=== PATIENT | female | born 1980 | race Caucasian/White ===

== ENCOUNTER 2017-02-13 07:50 | Day surgery (SDC) | payer OTHER ==
[~2017-02-13] VITALS: Ht 152.4 cm; Wt 59.0 kg
[~2017-02-13 07:50] MED LIST: LANTUS100 UNITS/ SUB-Q; NAPROSYN500 MG PO; NOVOLOG FL100 UNIT/1 SUB-Q
--- NOTE | 2017-02-13 11:57 | NUR ---
02/13/17 1157 Lucero Moura REPORT FROM DUST OPERATOR. ACCUCHECK 258 MG D/L-SEE ORDER FROM MD. D5LR CHANGED TO LR AT 125/H. WILL RECHECK BLOOD SUGAR IN 1 HOUR. PT AWAKE,ASKING QUESTIONS RE BLOOD SUGAR.
--- NOTE | 2017-02-13 13:27 | NUR ---
C/O PAIN AND NOT TAKING PO YET SO MORPHINE IV GIVEN FOR 5/10 PAIN.
[2017-02-13] MEDS ORDERED: PERCOCET 5-3251 EACH PO (13:37)
[2017-02-13] MEDS ORDERED: ZOFRAN ODT8 MG PO (13:38)
[2017-02-13] MEDS ORDERED: IBUPROFEN800 MG PO (13:38)
--- NOTE | 2017-02-13 15:03 | NUR ---
pt ates crackers wanted pain pill. began to retch so phenergan given diluted iv. pt hob down. pale and diaphoretic, c/o pain under r rib area also. blood glucose req by pt 179. states ok. now feeling cold so warmer on. 1505 states nausea better.
--- NOTE | 2017-02-13 15:34 | NUR ---
AMB TO BR NOT SO DIZZY, NAUSEA RESOLVED. DID WELL. STILL C/O L RIB PAIN. RET TO BED. VOIDED 125ML.
--- NOTE | 2017-02-13 15:56 | NUR ---
HAS HAD SOME CHICKEN NOODLE SOUP WANTS PAIN PILL AND GIVEN.
--- NOTE | 2017-02-13 17:10 | NUR ---
dr vazquez in to see pt.
--- NOTE | 2017-02-13 17:32 | NUR ---
PT READY TO GO HOME.
--- NOTE | 2017-02-13 17:34 | NUR ---
TOO EARLY FOR MOTRIN TORADOL GIVEN IN OR AT 1115.
--- NOTE | 2017-02-27 10:07 | OR ---
[facility] [address], [place] [address] Signed DATE OF PROCEDURE: 02/13/17 SURGEON: More Van M.D. CYTOPATHOLOGIST: Dr. Rizo. PREOPERATIVE DIAGNOSES: Dysmenorrhea, menorrhagia, prior tubal ligation. POSTOPERATIVE DIAGNOSES Dysmenorrhea, menorrhagia, prior tubal ligation with right ovarian cyst. PROCEDURE: Laparoscopy with right salpingo-oophorectomy. ANESTHESIA: General ET. DRAINS: Cazares catheter. INDICATIONS AND FINDINGS The patient is a 37-year-old female, 3, para 1, ectopic 1, VIP 1, who was admitted for evaluation of her increasing dysmenorrhea and menorrhagia. The patient has had a prior tubal ligation. She has been having worsening of her pain and bleeding, but has not really been interested in using any medical treatment. Laparoscopy was being done to evaluate for other causes of her pain. She has had a normal ultrasound, which was done approximate l y 3 weeks ago. Her periods are, otherwise, regular. At the time of surgery, laparoscopy, there was a large right adnexal mass measuring approximately 5 cm. It did appear to be blood-filled. There was no evidence of other endometriosis within the pelvis. The tubes had evidence of prior tubal ligation. PROCEDURE The patient was prepped and draped in the dorsal lithotomy position. A weighted speculum was placed and the cervix was visualized and grasped on the anterior lip with a single-tooth tenaculum. A Hulka clamp was then placed and the tenaculum and weighted speculum removed. Attention was directed to the abdomen. The infraumbilical area was injected with 0.5% Marcaine plain. The incision was made with a knife and each layer was then serially elevated and incised with the Metzenbaum scissors until the fascia could be opened and identified. Stay sutures of 0 Vicryl were placed. The peritoneum was opened sharply. The Rimma cannula was then placed and tied into place. A secondary port was placed just below the level of the umbilicus laterally. This area was transilluminated, injected with Marcaine, incision made with a knife, and the 5 mm port was placed under direct vision. Following this, the pelvis was evaluated and the mass noted. It was felt that this was probably related to her recent increase in her pain, though no other endometriosis could be seen. The decision was made to remove the right Electronically Signed By: MORE VAN MD 02/27/17 1007 PATIENT NAME: SOFIYA FERRELL OPERATIVE REPORT DATE OF : 84 PHYSICIAN: MORE VAN MD REPORT #: [id number] REPORT IS CONFIDENTIAL AND NOT TO BE RELEASED WITHOUT AUTHORIZATION [facility] [address], [place] [address] Signed tube and ovary. A third port was made in the same area on the patient's right side. This layer was transilluminated and injected with the Marcaine. Incision made with a knife and another 5 mm port placed under direct vision. Following this, the [place] LigaSure device was used to coagulate the right infundibulopelvic ligament multiple times and then dividing this. The specimen was allowed to fall into the pelvis for retrieval later. An Endoloop of 0 PDS was then placed over the infundibulopelvic ligament to assure hemostasis. Following this, a bag was introduced and the specimen placed into the bag, which was brought up through the center port. As it approached the skin, fluid was drained from the cyst and ovary and the cystic material was all sent to pathology. There was no leakage from the bag at all. It primarily appeared to be a hemorrhagic cyst. Following this, Rimma was replaced and the pelvis evaluated. It was irrigated and inspected and good hemostasis was noted. There was no evidence of any abnormal areas otherwise and preparation was made for closure. The instruments removed from the abdomen after allowing as much CO2 as possible to escape. The fascial incision of the umbilicus was reidentified and closed with a running suture of 0 Vicryl. The stay sutures were tied across as well. The skin incisions were closed with subcuticular sutures of 3-0 Vicryl Rapide. Following this, the vaginal inserts removed. There was no evidence of bleeding from the tenaculum sites. The patient was then taken to the recovery room. MD ANAI Hurley/Modl /[id number] cc: DENISSE Oconnor DO Electronically Signed By: MORE VAN MD 02/27/17 1007 PATIENT NAME: SOFIYA FERRELL OPERATIVE REPORT DATE OF : 84 PHYSICIAN: MORE VAN MD REPORT #: [id number] REPORT IS CONFIDENTIAL AND NOT TO BE RELEASED WITHOUT AUTHORIZATION
== END 2017-02-13 17:25 | disposition home or self-care (01) ==
LOC: DS 07:50
PROVIDERS: Obstetrics & Gynecology
PROC: 0UB04ZZ Excision of Right Ovary, Percutaneous Endoscopic Approach (ICD-10-PCS; principal; 2017-02-13 09:45)
PROC: 0UB54ZZ Excision of Right Fallopian Tube, Percutaneous Endoscopic Approach (ICD-10-PCS; 2017-02-13 09:45)
DX: N83.11 Corpus luteum cyst of right ovary (principal); N83.01 Follicular cyst of right ovary; Z98.51 Tubal ligation status; E10.9 Type 1 diabetes mellitus without complications; Z98.890 Other specified postprocedural states; Z79.899 Other long term (current) drug therapy
CPT/HCPCS: 00840; J1100; J1170; J1885; J2250; J2270; J2405; J2550; J2704; J2765; J3010; J7120

== ENCOUNTER 2017-03-26 19:02 | Emergency (ER) | payer OTHER ==
[~2017-03-26] VITALS: Ht 152.4 cm; Wt 59.0 kg
[~2017-03-26 19:02] MED LIST changes: +IBUPROFEN800 MG PO; +PERCOCET 5-3251 EACH PO; +ZOFRAN ODT8 MG PO
[2017-03-26] MEDS ORDERED: FOLIC ACID1 MG PO (19:33)
[2017-03-26] MEDS ORDERED: METHOTREXATE2.5 MG PO (19:33)
== END 2017-03-26 23:18 | disposition home or self-care (01) ==
LOC: ED 19:02
DX: R10.30 Lower abdominal pain, unspecified (principal); E10.9 Type 1 diabetes mellitus without complications; Z98.51 Tubal ligation status; Z79.4 Long term (current) use of insulin; Z79.899 Other long term (current) drug therapy
CPT/HCPCS: 36415; 76830; 76856; 81001; 84703; 85025; 96372; 99284; J1885

== ENCOUNTER 2017-04-03 05:35 | Day surgery (SDC) | payer OTHER ==
[~2017-04-03] VITALS: Ht 152.4 cm; Wt 59.0 kg
[~2017-04-03 05:35] MED LIST changes: +FOLIC ACID1 MG PO; +METHOTREXATE2.5 MG PO
--- NOTE | 2017-04-03 09:22 | NUR ---
04/03/17 0922 Emily Agustin 0915-PATIENT ARRIVED TO PACU ON 6L MASK O2 SAT 100% PATIENT NONAROUSABLE. 3 LAP SITES TO ABDOMEN RLQ SHADOWING. FRASER CATHETER IN PLACE. 0920-PATIENT REACTIVE TO VOICE, DROWSY
[2017-04-03] MEDS ORDERED: PERCOCET 5-3251 EACH PO (10:36)
[2017-04-03] MEDS ORDERED: IBUPROFEN800 MG PO (10:36)
[2017-04-03] MEDS ORDERED: ZOFRAN ODT4 MG PO (10:37)
[2017-04-03] MEDS ORDERED: SENOKOT8.6 MG PO (10:38)
--- NOTE | 2017-04-03 12:46 | NUR ---
1230 ASSIST PT UP TO BEDSIDE C/O VERY DIZZY HAD TO LYE BACK DOWN REQ TO NOT HAVE CATHETER REMOVED YET. CONTS TO DRAIN YELLOW URINE. VS STABLE. ALLOW TO REST LONGER.
--- NOTE | 2017-04-03 14:26 | NUR ---
up at bedside feels alittle dizzy but not as much as before. ret to bed and catheter dcd at 1400. 300mls yellow urine. denies nausea rates pain 7/10 want to take pain pills this time. eating crackers.
--- NOTE | 2017-04-03 17:13 | NUR ---
VOIDED 500MLS URINE AT 1630.
--- NOTE | 2017-04-24 08:09 | OR ---
[facility] [address], [place] [address] Signed DATE OF OPERATION: 04/03/2017 SURGEON: More Van MD DREDGE CAPTAIN: Jacob Gomes MD PREOPERATIVE DIAGNOSES: 1. Menorrhagia. 2. Dysmenorrhea. 3. Pelvic pain. POSTOPERATIVE DIAGNOSES: 1. Menorrhagia. 2. Dysmenorrhea. 3. Pelvic pain. PROCEDURES: 1. Total laparoscopic hysterectomy. 2. Left salpingectomy. 3. Cystoscopy. ANESTHESIA: General ET. ESTIMATED BLOOD LOSS: 75 mL. DRAINS: Cazares catheter. PACKS: None. INDICATIONS AND FINDINGS: The patient is a 37-year-old female, 3, para 1, ectopic 1, VIP 1, who has been having ongoing pelvic pain with worsening dysmenorrhea and menorrhagia, who desires definitive treatment. She has undergone a prior laparoscopy with removal of the right tube and ovary for a hemorrhagic cyst. No endometriosis or other pathology was found at that time. She has been placed on control pills, but has not really had any improvement in her symptoms. She has undergone prior tubal ligation. She now desires definitive treatment for her pain. At the time of surgery, exam under anesthesia was normal. At the time of laparoscopy, the pelvis appeared normal. PROCEDURE IN DETAIL: The patient was prepped and draped in the dorsal lithotomy position. A weighted speculum was placed and the anterior lip of the cervix was visualized and grasped with a single-tooth tenaculum. The endometrial canal was sounded Electronically Signed By: MORE VAN MD 04/24/17 0809 PATIENT NAME: SOFIYA FERRELL OPERATIVE REPORT DATE OF : 84 PHYSICIAN: MORE VAN MD REPORT #: [id number] REPORT IS CONFIDENTIAL AND NOT TO BE RELEASED WITHOUT AUTHORIZATION [facility] [address] [place] [address], [place] [address] Signed to 8 cm. The endocervical canal was dilated and the VCare cannula was placed and the balloon inflated at the fundus. The tenaculum and speculum were removed. The cuff was fitted over the cervix and a locking cap was fitted into place as well. Following this, attention was directed above. The infraumbilical area was injected with 0.5% Marcaine plain. An incision was made with a knife and then each layer was serially elevated and incised until the fascia was opened and identified. Stay sutures were placed on each side. The peritoneum was then opened bluntly. There was a small amount of omental adhesions towards the right side of the umbilical incision, but these were not in the way at all. The Rimma cannula was then placed and tied into place. The abdomen was inflated and the pelvis visualized. It was felt that the planned approach was appropriate. Secondary ports were placed on the right and left sides. The left side was transilluminated at the level just below the umbilicus fairly far laterally. This area was transilluminated and injected with the Marcaine. Incision made with a knife and a 5 mm port placed under direct vision. The same procedures was carried on the patient's right side, although at this point, the Veress needle was inserted with the expanding port. The 10 port was placed through the initial port. Following this, the hysterectomy was done. The Ligasure [place] device was used. The patient's left tube was serially coagulated and divided followed by the round ligament and then the uteroovarian ligament. Following this, the anterior leaf of the peritoneum could be opened and incised allowing for a partial bladder flap. The peritoneum posteriorly was also taken down. The uterine vessels were then skeletonized and coagulated multiple times at the level of the internal os. These were then divided. Further dissection was done both posteriorly and anteriorly as well. Following this, the same procedure was carried out on the patient's right side. Following this, dissection was done anteriorly allowing for the bladder to completely drop off the cervix. Dissection was done posteriorly as well. The uterine vessels were skeletonized and coagulated multiple times and then divided. Following this, attention was redirected to the patient's left side and further dissection was done around the uterine vessels, posteriorly, but it was felt at that point the cup was easily identified and the specimen could be removed. This was done with the Sonicision device. It was begun posteriorly and wrapped around the patient's left side to the anterior portion of the specimen and then taken again from posterior around the right side completing the dissection. Following this, the specimen was removed vaginally. The vaginal canal was then packed with a glove with a single wet lap tape. Attention was redirected above and the cuff was closed as the cuff appeared to be hemostatic. The EndoStitch using 0 PDS was used, closing the cuff from posterior to anterior, beginning at the patient's right uterosacral ligament, and going to the left and then back to the center. Following this, the patient's left tube was removed and brought through the right lateral port. The abdomen was copiously irrigated and inspected and good hemostasis was noted. Following this, the abdominal portion was complete and the instruments were removed from the abdomen after allowing as much CO2 as possible to escape. The fascial incision at the Electronically Signed By: MORE VAN MD 04/24/17 0809 PATIENT NAME: SOFIYA FERRELL OPERATIVE REPORT DATE OF : 84 PHYSICIAN: MORE VAN MD REPORT #: [id number] REPORT IS CONFIDENTIAL AND NOT TO BE RELEASED WITHOUT AUTHORIZATION [facility] [address] [place] [address], [place] [address] Signed umbilicus was reidentified and closed with a running suture of 0 Vicryl. The stay sutures were tied across as well. There was some dimpling near the patient's left side of the umbilical incision and this was undermined to allow for her more cosmetic scar. The skin incisions were then closed with subcuticular sutures of 3-0 Vicryl rapide. Following this, attention was directed down below and the glove filling the vagina was removed. The Cazares catheter was removed and cystoscopy was done. She had received IV fluorescein. The 30-degree scope was used and the bladder filled. There was no evidence of any bladder injury. The ureters were identified and both ureteral jets were seen, though no fluorescein was yet seen in the bladder. The procedure was terminated with removal of the cystoscope after draining the bladder. The Cazares catheter was replaced. All sponge and needle counts were correct. She tolerated the procedure well. She was taken to the recovery room in good condition. More Van MD PJW/MODL /[id number] cc: Jacob Gomes MD [facility] Electronically Signed By: MORE VAN MD 04/24/17 0809 PATIENT NAME: MARIAELENASOFIYA OPERATIVE REPORT DATE OF : 84 PHYSICIAN: MORE VAN MD REPORT #: [id number] REPORT IS CONFIDENTIAL AND NOT TO BE RELEASED WITHOUT AUTHORIZATION
== END 2017-04-03 17:00 | disposition home or self-care (01) ==
LOC: DS 05:35
PROVIDERS: Obstetrics & Gynecology
PROC: 0UT94ZZ Resection of Uterus, Percutaneous Endoscopic Approach (ICD-10-PCS; principal; 2017-04-03 06:45)
PROC: 0UB64ZZ Excision of Left Fallopian Tube, Percutaneous Endoscopic Approach (ICD-10-PCS; 2017-04-03 06:45)
DX: N80.0 Endometriosis of uterus (principal); N72 Inflammatory disease of cervix uteri; N87.9 Dysplasia of cervix uteri, unspecified; E10.9 Type 1 diabetes mellitus without complications; Z98.51 Tubal ligation status; Z98.890 Other specified postprocedural states
CPT/HCPCS: 00944; J0694; J1100; J1170; J1644; J1885; J2270; J2405; J2704; J2765; J3010

== ENCOUNTER 2017-05-27 07:00 | Day surgery (SDC) | payer OTHER ==
[~2017-05-27] VITALS: Ht 152.4 cm; Wt 59.0 kg
[~2017-05-27 07:00] MED LIST changes: +SENOKOT8.6 MG PO; +ZOFRAN ODT4 MG PO
--- NOTE | 2017-05-27 07:55 | NUR ---
PT WAS IN RM ALONE, SHE WELCOMED ME IN. I COULD TELL SHE WAS ALITTLE UNEASY, AND BEGAN TO WALK HER THROUGH TODAY WHEN GENA Zambrano CAME INTO START IV. WILL RETURN TO CHECK ON PT.
--- NOTE | 2017-05-27 10:13 | NUR ---
05/27/17 Justin3 Lucero Moura report from residential property manager.
--- NOTE | 2017-05-27 12:15 | NUR ---
PT REPORTS THAT HER NAUSEA HAS GONE AWAY AND SHE IS FEELING ABOUT THE SAME PAIN EGAN. PT IS REQUESTING SOMETHING FOR PAIN. WATER AT THE BEDSIDE. SHE DENIES A NEED TO URINATE AT THIS TIME. WILL REASSESS WITHIN THE HOUR.
--- NOTE | 2017-05-27 13:26 | NUR ---
PT WAITING FOR RN TO COME AND START IV. I COULD TELL PT WAS STRESSED, AND UNCOMFORTABLE. BEGAN TO TALK PT THROUGH THE DAY WHEN RN NOA Zambrano CAME IN. TRIED TO FOLLOW UP WITH PT-SAW HER JUST SHE WAS BEING TAKEN TO SURGERY. GOD BLESS HER
--- NOTE | 2017-05-27 13:54 | NUR ---
PT HAS MET DC CRITERIA AND WOULD LIKE TO GO HOME. DC INSTRUCTIONS TO BE GIVEN IN THE PRESENCE OF PT'S MOM.
--- NOTE | 2017-06-17 08:48 | OR ---
[facility] [address], [place] [address] Signed DATE OF OPERATION: 05/27/2017 SURGEON: Carmela Torres MD PREOPERATIVE DIAGNOSIS: Interstitial cystitis. POSTOPERATIVE DIAGNOSIS: Interstitial cystitis. NAME OF PROCEDURES: Diagnostic cystoscopy with hydrodistention. SURGEON: Carmela Torres MD. ANESTHESIA: MAC. ESTIMATED BLOOD LOSS: None. COMPLICATIONS: None. SPECIMENS: None. INDICATIONS FOR PROCEDURE: Ms. Menon is a very pleasant 37-year-old female who came to me upon referral from Dr. More Van for severe bladder pain and along with pain during urination. The patient had undergone a hysterectomy approximately 6 weeks prior to her 1st office visit. The patient denied any dysuria or gross hematuria. However, she did report severe bladder cramping that was worse with urination. She underwent a negative cystoscopy as well as a negative examination of her pelvic floor, which would otherwise have indicated pelvic floor dysfunction. Both Dr. Van and I felt that this could be easily ruled out. I mentioned to her the possibility of undergoing hydrodistention as this does help a lot of patients with interstitial cystitis and she has agreed to undergo the procedure. In the interim, she has since tried the Uribel medication without any improvement in her symptoms. Electronically Signed By: CARMELA TORRES MD 06/17/17 0848 PATIENT NAME: SOFIYA MENON OPERATIVE REPORT DATE OF : 84 PHYSICIAN: CARMELA TORRES MD REPORT #: [id number] REPORT IS CONFIDENTIAL AND NOT TO BE RELEASED WITHOUT AUTHORIZATION [facility] [address] [place], [place] [address] Signed OPERATIVE FINDINGS: 1. On cystoscopy, there was no evidence of any suspicious masses, lesions, or stones within the bladder. Bilateral ureteral orifices are in a normal anatomic location. The patient is noted to have a very good bladder capacity with normal compliance. 2. The patient's bladder was filled with a total of 1100 mL of fluid for around 7 minutes. DESCRIPTION OF PROCEDURE: After informed consent was obtained, the patient was taken back to the operative room. She was transferred from the [facility] to the operating room table, where MAC anesthesia was induced. She was placed in dorsal lithotomy position and genitalia prepped and draped in standard sterile fashion. A rigid cystoscope was inserted into her bladder and diagnostic cystoscopy was performed. The patient's bladder was then slowly filled with irrigant to approximately 1100 mL. Her bladder remained filled for 7 to 8 minutes. Towards the end of the procedure, I did begin to notice some bladder spasms producing leakage of irrigant from the patient's bladder. The patient was noted to have good compliance otherwise and filled to a total of 1100 mL. After these 7.5 minutes was complete, the patient's bladder was then drained and the cystoscope was removed. A belladonna and opioid suppository was then inserted into the patient's rectum for prevention of painful bladder spasms. The procedure was then terminated. The patient tolerated the procedure well without any complication. She will now be transferred to the postanesthesia care unit in stable condition. DISPOSITION: Sofiya would be discharged to home later today in stable condition. She was given 5 days of Bactrim for prophylaxis along with Percocet 5/325, dispense #5 as needed for pain. She will be scheduled to return to clinic in approximately 1 month for re-evaluation of her bladder cramping symptoms. MD LYNDA Isaac/MODL /[id number] Electronically Signed By: CARMELA TORRES MD 06/17/17 0848 PATIENT NAME: SOFIYA MENON OPERATIVE REPORT DATE OF : 84 PHYSICIAN: CARMELA TORRES MD REPORT #: [id number] REPORT IS CONFIDENTIAL AND NOT TO BE RELEASED WITHOUT AUTHORIZATION [address] [place] [address] Signed Electronically Signed By: CARMELA TORRES MD 06/17/17 0848 PATIENT NAME: SOFIYA MENON OPERATIVE REPORT DATE OF : 84 PHYSICIAN: CARMELA TORRES MD REPORT #: [id number] REPORT IS CONFIDENTIAL AND NOT TO BE RELEASED WITHOUT AUTHORIZATION
== END 2017-05-27 14:05 | disposition home or self-care (01) ==
LOC: DS 07:00 → OPS 07:00 → DS 10:15 → OPS 10:15
PROVIDERS: Urology
PROC: 0T7B8ZZ Dilation of Bladder, Via Natural or Artificial Opening Endoscopic (ICD-10-PCS; principal; 2017-05-27 10:15)
DX: N30.10 Interstitial cystitis (chronic) without hematuria (principal); E10.9 Type 1 diabetes mellitus without complications; L40.50 Arthropathic psoriasis, unspecified; Z90.710 Acquired absence of both cervix and uterus; Z98.51 Tubal ligation status; Z98.890 Other specified postprocedural states; Z79.899 Other long term (current) drug therapy
CPT/HCPCS: 00912; J0696; J1100; J1885; J2250; J2405; J2704; J3010; J7120

== ENCOUNTER 2017-09-16 06:49 | Day surgery (SDC) | payer OTHER ==
[~2017-09-16] VITALS: Ht 152.4 cm; Wt 57.0 kg
[~2017-09-16 06:49] MED LIST changes: +ELMIRON100 MG PO; +HUMIRA40 MG/0.1 SUB-Q
[2017-09-16] MEDS ORDERED: BACTRIM DS TAB1 EACH PO (10:21)
--- NOTE | 2017-09-16 10:50 | OR ---
[facility] [address] [place], [place] [address] Signed DATE OF OPERATION: 09/16/2017 SURGEON: Carmela Torres MD PREOPERATIVE DIAGNOSES: 1. Cystitis. 2. Possible pelvic floor dysfunction. POSTOPERATIVE DIAGNOSES: 1. Cystitis. 2. Possible pelvic floor dysfunction. PROCEDURES: Diagnostic cystoscopy with hydrodistention. ANESTHESIA: General. ESTIMATED BLOOD LOSS: Minimal. COMPLICATIONS: None. SPECIMENS: None. INDICATIONS FOR PROCEDURE: Ms. Menon is a very pleasant 37-year-old female with a past medical history significant for type 1 diabetes mellitus and rheumatoid arthritis who is well known to me. She has a history of severe suprapubic discomfort that is made particularly worse while voiding. She has no issues with dysuria or gross hematuria and does not experience exacerbation of symptoms with trigger foods. She underwent a cystoscopy with hydrodistention in May of 2017, and reports an approximately 20% improvement in her symptoms. She was recently seen in clinic and she requested repeat hydrodistention and she presents today to undergo the procedure. OPERATIVE FINDINGS: 1. On cystoscopy, there was no evidence of any suspicious masses, lesions, or stones. Bilateral ureteral orifices are in their normal anatomic location. Electronically Signed By: CARMELA TORRES MD 09/16/17 1050 PATIENT NAME: SOFIYA MENON OPERATIVE REPORT DATE OF : 84 REPORT #: [id number] PHYSICIAN: CARMELA TORRES MD PCP: YOUSIF PAYNE REPORT IS CONFIDENTIAL AND NOT TO BE RELEASED WITHOUT AUTHORIZATION [facility] [address] [place], [place] [address] Signed 2. The patient filled to a total of 1300 mL during the hydrodistention. The distention was held for approximately 7.5 minutes and the patient's bladder was drained without incident. DESCRIPTION OF PROCEDURE: After informed consent was obtained, the patient was taken back to the operating room. She was transferred [place] [facility] to the operating room table, where general anesthesia was induced. She was placed in the dorsal lithotomy position and her genitalia were prepped and draped in the standard sterile fashion. Using a 30-degree lens on a 21-[place] introducer, rigid cystoscope was inserted through the urethra and into her bladder under direct visualization. Panendoscopic views of the bladder were then obtained. Please see above findings. I then initiated the filling sequence portion of the hydrodistention. Once she was filled to max capacity, her bladder remained at this capacity for a total of 7.5 Minutes. There was no significant Hunner ulcers or any petechiae or cracking noticed on the bladder wall mucosa at the end of the distention. There were, however, some superficial vessels that were noted. However, this is a normal response to hydrodistention. The patient's bladder was then drained and we measured the drainage at 1300 mL. The cystoscope was removed and the procedure was terminated. The patient tolerated the procedure well without any complication. She will now be transferred to the postanesthesia care unit in stable condition. DISPOSITION: I discussed the details of today's procedure with her boyfriend and answered all of his questions. She will be sent home today with Bactrim double strength for a total of 5 days. She will be scheduled to return to clinic in approximately 6 weeks for re-evaluation of her symptoms. She will be discharged to home today in the company of her boyfriend. MD LYNDA Isaac/MODL /[id number] Copies: Electronically Signed By: CARMELA TORRES MD 09/16/17 1050 PATIENT NAME: SOFIYA MENON JUSTINO OPERATIVE REPORT DATE OF : 84 REPORT #: [id number] PHYSICIAN: CARMELA TORRES MD PCP: YOUSIF PAYNE REPORT IS CONFIDENTIAL AND NOT TO BE RELEASED WITHOUT AUTHORIZATION [facility] [address] [place] [address] [place], [place] [address] Signed ~ Electronically Signed By: CARMELA TORRES MD 09/16/17 1050 PATIENT NAME: SOFIYA MENON OPERATIVE REPORT DATE OF : 84 REPORT #: [id number] PHYSICIAN: CARMELA TORRES MD PCP: YOUSIF PAYNE REPORT IS CONFIDENTIAL AND NOT TO BE RELEASED WITHOUT AUTHORIZATION
== END 2017-09-16 11:00 | disposition home or self-care (01) ==
LOC: OPS 06:49 → DS 06:49 → OPS 08:00 → DS 08:00 → OPS 11:00
PROVIDERS: Urology
PROC: 0T7B8ZZ Dilation of Bladder, Via Natural or Artificial Opening Endoscopic (ICD-10-PCS; principal; 2017-09-16 08:00)
DX: N30.10 Interstitial cystitis (chronic) without hematuria (principal); E10.9 Type 1 diabetes mellitus without complications; F41.9 Anxiety disorder, unspecified; M06.9 Rheumatoid arthritis, unspecified; Z98.890 Other specified postprocedural states; Z83.3 Family history of diabetes mellitus; Z79.84 Long term (current) use of oral hypoglycemic drugs; Z79.899 Other long term (current) drug therapy
CPT/HCPCS: 00910; J0696; J1100; J2250; J2405; J2704; J3010; J7120

== ENCOUNTER 2018-07-28 05:55 | Day surgery (SDC) | payer OTHER ==
[~2018-07-28] VITALS: Ht 152.4 cm; Wt 52.2 kg
[~2018-07-28 05:55] MED LIST changes: +BACTRIM DS TAB1 EACH PO; +CIPRO500 MG PO; +COSENTYX P150 MG/1 M SUB-Q; +CYMBALTA20 MG PO; +DICLOFENAC SODI50 MG PO; +ENBREL50 MG/1 ML SUB-Q; +GABAPENTIN300 MG PO; +HYDROXYZINE HCL10 MG PO; +PYRIDIUM200 MG PO
--- NOTE | 2018-07-28 08:15 | NUR ---
07/28/18 0815 Jacqueline Michel 0809- PT ARRIVES TO PACU AROUSABLE TO VOICE. PT REPORTS NO PAIN OR NAUSEA. PT INSTANTLY BACK TO SLEEP. RESP EVEN AND UNLABORED. OXYGEN SAT 100% ON 10L VIA MASK. 0814- OXYGEN TURNED OFF. OXYGEN SAT REMAINS 100% ON RA. RESP EVEN AND UNLABORED.
--- NOTE | 2018-07-28 08:41 | NUR ---
PT ARRIVES TO DS RM 5 FROM PACU AWAKE AND ALERT. PT RESP EVEN AND UNLABORED ON RA. PT SATS ABOVE 94%. PT DENIES ANY PAIN OR NAUSEA AT THIS TIME AND TOLERATES SIPS OF WATER. PT PROVIDED CRACKERS PER REQUEST. CALL LIGHT WITHIN REACH, SCD'S PLUGGED IN. DC CRITERIA EXPLAINED TO PT, PT AGREEABLE.
[2018-07-28] MEDS ORDERED: CIPRO500 MG PO (08:55)
[2018-07-28] MEDS ORDERED: PERCOCET 5-3251 EACH PO (08:55)
[2018-07-28] MEDS ORDERED: PYRIDIUM200 MG PO (08:56)
--- NOTE | 2018-07-28 09:38 | NUR ---
PT REQUESTS TO PUT PERSONAL PAJAMA BOTTOMS ON. PT DRESSES SELF WITH NO PROBLEMS, PT DENIES ANY DIZZINESS OR NAUSEA WITH POSITION CHANGES. PT UP TO BATHROOM WITH RN ASSIST, STEADY GAIT.
--- NOTE | 2018-07-28 09:45 | NUR ---
PT ABLE TO VOID 400 DILUTE YELLOW URINE WITH NO PROBLEM. PT CALLS FAMILY FOR RIDE HOME FROM PERSONAL CELL PHONE. DC INSTRUCTIONS GIVEN TO PT, MED SCRIPT IN FOLDER.
--- NOTE | 2018-07-28 10:22 | NUR ---
PT LAYING IN BED, ALERT AND ORIENTED. PT STATED THAT SHE HAS HAD PROCEDURE BE- FORE AND THAT SHE PROBABLY WILL SOMETIME AGAIN. OUTLINED THE DAY, PT ASKED FOR PRAYER. WILL FOLLOW NEEDED
--- NOTE | 2018-07-29 18:24 | OR ---
[facility] [address] [place] [address] Signed DATE OF OPERATION: 07/28/2018 SURGEON: Carmela Torres MD PREOPERATIVE DIAGNOSIS: Interstitial cystitis. POSTOPERATIVE DIAGNOSIS: Interstitial cystitis. NAME OF PROCEDURE: Diagnostic cystoscopy with hydrodistention. ANESTHESIA: General. ESTIMATED BLOOD LOSS: None. COMPLICATIONS: None. SPECIMENS: None. DRAINS: None. INDICATIONS FOR PROCEDURE: Ms. Menon is a very pleasant 38-year-old female with a history of interstitial cystitis with atypical symptoms. She has undergone cystoscopy with hydrodistention in the past in February of 2018, and did respond to the procedure. She is currently taking hydroxyzine 10 mg p.o. at bedtime as well as Pyridium as needed for suprapubic discomfort. She continues to deny any gross hematuria or overt dysuria, however, she is experiencing frequency and urgency symptoms. She presents today to undergo a repeat cystoscopy with hydrodistention for definitive management of her IC symptoms. OPERATIVE FINDINGS: 1. On cystoscopy, there was no evidence of any suspicious masses, lesions or stones within the bladder. Bilateral ureteral orifices are in their normal anatomic location. Portions of this report were created using voice recognition software. There may be inadvertent computer error. Please read with context in mind. If there are any questions, please contact me. Electronically Signed By: CARMELA TORRES MD 07/29/18 1824 PATIENT NAME: SOFIYA MENON OPERATIVE REPORT DATE OF : 84 REPORT #: [id number] PHYSICIAN: CARMELA TORRES MD PCP: JAVIER MARTIN REPORT IS CONFIDENTIAL AND NOT TO BE RELEASED WITHOUT AUTHORIZATION [facility] [address] [place], [place] [address] Signed 2. There is some diffuse superficial vascularity of the bladder wall mucosa, however, no evidence of any ulceration or mucosal cracking during distention. There are no active Hunner's ulcers seen. 3. The patient's bladder was filled with a maximum capacity of approximately 1500 mL during this distention, for a total of 7.5 minutes. DESCRIPTION OF PROCEDURE: After informed consent was obtained, the patient was taken back to the operating room. She was transferred from the [facility] to the operating room table, where general seizure was induced. She was placed in the dorsal lithotomy position and the genitalia were prepped and draped in standard sterile fashion. Using a 30-degree lens on a 21-Sinhala introducer rigid cystoscope was inserted through her urethra and into her bladder under direct visualization. Panendoscopic views of the bladder were then obtained. Please see the findings. Prior to the insertion of the cystoscope, a belladonna and opioid suppository were inserted per rectum. After cystoscopy was performed, the patient's bladder was completely drained. It was then filled at a medium rate and was filled to capacity for approximately 7 minutes. Please see the above findings. Toward the end of the distention period, the patient's bladder began to exhibit contractions and was forcing irrigation from the bladder back out during the active distention process. After approximately 7.5 minutes, the patient's bladder was then drained of 1500 mL of fluid. The procedure was then terminated. The patient tolerated the procedure well without any complication. She will now be transferred to the postanesthesia care unit in stable condition. Prior to transfer, the patient was given an additional belladonna and opioid suppository. DISPOSITION: I discussed the details of today's procedure with the patient, answered all of her questions. She will be scheduled to return to clinic in 6 weeks for her first postoperative evaluation. She will be sent home today with Percocet 5/325 one tablet p.o. q.8 hours p.r.n. pain, dispense #20, along with Cipro 500 mg p.o. b.i.d. for a total of 5 days. She was also given a refill of her Pyridium prescription. MD LYNDA Isaac/FAVIAN /[id number] Portions of this report were created using voice recognition software. There may be inadvertent computer error. Please read with context in mind. If there are any questions, please contact me. Electronically Signed By: CARMELA TORRES MD 07/29/18 1824 PATIENT NAME: SOFIYA MENON OPERATIVE REPORT DATE OF : 84 REPORT #: [id number] PHYSICIAN: CARMELA TORRES MD PCP: JAVIER MARTIN REPORT IS CONFIDENTIAL AND NOT TO BE RELEASED WITHOUT AUTHORIZATION [address] [address] Signed Copies: ~ Portions of this report were created using voice recognition software. There may be inadvertent computer error. Please read with context in mind. If there are any questions, please contact me. Electronically Signed By: CARMELA TORRES MD 07/29/18 1824 PATIENT NAME: SOFIYA MENON OPERATIVE REPORT DATE OF : 84 REPORT #: [id number] PHYSICIAN: CARMELA TORRES MD PCP: JAVIER MARTIN REPORT IS CONFIDENTIAL AND NOT TO BE RELEASED WITHOUT AUTHORIZATION
== END 2018-07-28 09:55 | disposition home or self-care (01) ==
LOC: OPS 05:55 → DS 05:55 → OPS 06:45
PROVIDERS: Urology
PROC: 0T7B8ZZ Dilation of Bladder, Via Natural or Artificial Opening Endoscopic (ICD-10-PCS; principal; 2018-07-28 06:45)
DX: N30.10 Interstitial cystitis (chronic) without hematuria (principal); E10.9 Type 1 diabetes mellitus without complications; M19.041 Primary osteoarthritis, right hand; Z79.899 Other long term (current) drug therapy; Z98.890 Other specified postprocedural states
CPT/HCPCS: 00910; J0696; J1100; J1885; J2250; J2405; J2704; J2765; J3010; J7120

== ENCOUNTER 2019-12-07 05:53 | Day surgery (SDC) | payer OTHER ==
[~2019-12-07] VITALS: Ht 152.4 cm; Wt 59.0 kg
[~2019-12-07 05:53] MED LIST changes: +CLINDAMYCIN HC300 MG PO; +HYDROCODON-ACE1 EA10 PO; +HYDROCODON-ACE1 EA11 PO; +MOTRIN IB200 MG PO; +ZOFRAN8 MG PO
--- NOTE | 2019-12-07 08:16 | NUR ---
12/07/19 0816 Kate Barnes 0810- PT TO PACU IN SUPINE POSITION. EYES CLOSED. DOES NOT RESPOND TO TACTILE OR VERBAL STIMULI. BREATHING EASY AND UNLABORED. SPO2 >95% ON 6 L O2 VIA MASK. 0815- PT MAKING UNDISCERNABLE WORDS WITH EYES CLOSED TO VERBAL STIMULI. BREATHING EASY AND UNLABORED. SPO2 >95% ON 6L O2 VIA MASK. REPORT RECEIVED FROM KEG INSPECTOR.
--- NOTE | 2019-12-07 08:50 | NUR ---
[id number]: MARCY KNOWLES PLACED ON WARM [id number]: SIG OTHER, JOLEEN IN PT ROOM AT THIS TIME. [id number]: ICED WATER REFILLED, PT CONT TO DENY PAIN IN SURGICAL SITE. STATES BACK STILL HURTS. PT ENC TO USE CALL LIGHT WITH URGE TO VOID. 0940: PT USES CALL LIGHT TO NOTIFY RN OF URGE TO VOID. PT UP TO BATHROOM WITH RN ASSIST AND SIG OTHER, JOLEEN. PT AMBULATES WITH STEADY GAIT, HUNCHED OVER DUE TO CHRONIC BACK PAIN. PT ABLE TO VOID 700 MLS LIGHT YELLOW URINE WITH NO BLOOD PRESENT WITH NO PROBLEMS OR PAIN. PT BACK TO RM 5 TO GET DRESSED WITH SIG OTHER AT BEDSIDE.
--- NOTE | 2019-12-07 08:50 | NUR ---
PT ARRIVES TO DS RM 5 FROM PACU AWAKE AND ALERT. PT DENIES PAIN OR NAUSEA ON ARRIVAL, PT TOLERATES SIPS OF WATER WITH NO PROBLEM. DC CRITERIA EXPLAINED TO PT. PT PROVIDED PHONE PER REQUEST AND CALL LIGHT WITHIN REACH.
[2019-12-07] MEDS ORDERED: CIPRO500 MG PO (09:09)
[2019-12-07] MEDS ORDERED: PERCOCET 7.5-31 EACH PO (09:09)
[2019-12-07] MEDS ORDERED: PYRIDIUM200 MG PO (09:10)
--- NOTE | 2019-12-07 10:08 | NUR ---
0950: DC INSTRUCTIONS GIVEN IN PRESENCE OF PT AND SIG OTHER, NO QUESTIONS ASKED. PT PROVIDED HARD COPY OF PAIN PRESCRIPTION IN DC FOLDER. PT DC'S VIA WC TO PERSONAL VEHICLE AT MAIN HOSPTIAL ENTRANCE TO HOME.
--- NOTE | 2019-12-08 17:23 | OR ---
[facility] [address] [facility] [place], [place] [address] Signed DATE OF OPERATION: 12/07/2019 SURGEON: Carmela Torres MD DATE OF PROCEDURE: 12/07/2019 PREOPERATIVE DIAGNOSIS: Interstitial cystitis. POSTOPERATIVE DIAGNOSIS: Interstitial cystitis. NAME OF PROCEDURES: Diagnostic cystoscopy with hydrodistention. ANESTHESIA: General LMA. COMPLICATIONS: None. SPECIMENS: None. DRAINS: None. INDICATIONS FOR PROCEDURE: Ms. Menon is a very pleasant 39-year-old female who is well known to me. She was diagnosed by me with interstitial cystitis approximately two years ago and has been undergoing routine cystoscopy with hydrodistention for management of her moderate to severe interstitial cystitis for almost two years now. She presents today to undergo another routine hydrodistention. OPERATIVE FINDINGS: 1. On cystoscopy, there was no evidence of any suspicious masses, lesions, or stones. Bilateral ureteral orifices are in their normal anatomic location effluxing clear urine. 2. The patient's bladder was slowly filled with water, for a total volume of 1250 mL, suggesting adequate bladder compliance. Upon full distention, there was no evidence of Electronically Signed By: CARMELA TORRES MD 12/08/19 1723 PATIENT NAME: SOFIYA MENON OPERATIVE REPORT DATE OF : 84 REPORT #: [id number] PHYSICIAN: CARMELA TORRES MD PCP: JAVIER MARTIN REPORT IS CONFIDENTIAL AND NOT TO BE RELEASED WITHOUT AUTHORIZATION [facility] [address] [place], [place] [address] Signed any Hunner's ulcers noted, however, there was diffuse vascularity present throughout the bladder wall. Upon release of the fluid, there was no evidence of any acute hemorrhage. As stated above, the patient's bladder capacity was approximately 1250 mL. DESCRIPTION OF PROCEDURE: After informed consent was obtained, the patient was taken back to the operating room. She was transferred from the [facility] to the operating room table, where general anesthesia was induced. She was placed in the dorsal lithotomy position and her genitalia were prepped and draped in standard sterile fashion. Using a 30-degree lens on a 22.5 Welsh introducer, rigid cystoscope was inserted through the urethra into her bladder under direct visualization. Panendoscopic views of bladder were then obtained. Please see above findings. I then emptied the patient's bladder completely and then began to fill the patient's bladder slowly. I flow slowly distended the patient's bladder with a total of 1250 mL. I did appreciate diffuse vascularity as the patient's bladder filled, however no evidence of any acute hemorrhage or active hemorrhage from the bladder wall. At around full capacity, the patient's bladder did begin to leak just a little bit towards the end of the distention. The patient's bladder was distended for a total of 8.5 minutes. The patient's bladder was then drained for 1250 mL of fluid volume. I repeated cystoscopy to be sure there was no active hemorrhage, and this was negative. The patient's bladder was then again drained and the cystoscope was removed. The procedure was then terminated. The patient tolerated the procedure well without any complication. She will now be transferred to the postanesthesia care unit in stable condition. DISPOSITION: I notified the patient's significant other, German, of the results of the procedure. I reassured him that everything went well as per routine. She will be discharged to home later today when she awakes from general anesthesia. She was given prescriptions for Cipro 500 mg p.o. b.i.d. for a total of 5 days, along with Percocet 7.5/325 dispense #30 as needed for pain. She was also given a prescription for Pyridium 200 mg p.o. t.i.d. p.r.n. dysuria. She has been placed back on the schedule for postoperative visit on January 18, 2020. MD LYNDA Isaac/FAVIAN /[id number] Electronically Signed By: CARMELA TORRES MD 12/08/19 1723 PATIENT NAME: SOFIYA MENON OPERATIVE REPORT DATE OF : 84 REPORT #: [id number] PHYSICIAN: CARMELA TORRES MD PCP: JAVIER MARTIN REPORT IS CONFIDENTIAL AND NOT TO BE RELEASED WITHOUT AUTHORIZATION [facility] [address] [place] [address] [place], [place] [address] Signed Copies: ~ Electronically Signed By: CARMELA TORRES MD 12/08/19 1723 PATIENT NAME: SOFIYA MENON JUSTINO OPERATIVE REPORT DATE OF : 84 REPORT #: [id number] PHYSICIAN: CARMELA TORRES MD PCP: JAVIER MARTIN REPORT IS CONFIDENTIAL AND NOT TO BE RELEASED WITHOUT AUTHORIZATION
== END 2019-12-07 10:00 | disposition home or self-care (01) ==
LOC: OPS 05:53 → DS 05:53 → OPS 06:45
PROVIDERS: Urology
PROC: 0T7B8ZZ Dilation of Bladder, Via Natural or Artificial Opening Endoscopic (ICD-10-PCS; principal; 2019-12-07 06:45)
DX: N30.10 Interstitial cystitis (chronic) without hematuria (principal); E10.9 Type 1 diabetes mellitus without complications; M19.041 Primary osteoarthritis, right hand; M19.042 Primary osteoarthritis, left hand; L40.50 Arthropathic psoriasis, unspecified; Z90.710 Acquired absence of both cervix and uterus; Z98.890 Other specified postprocedural states; Z79.899 Other long term (current) drug therapy
CPT/HCPCS: 00910; J0696; J1885; J2001; J2250; J2704; J7121

== ENCOUNTER 2019-12-09 08:45 | Emergency (ER) | payer OTHER ==
[~2019-12-09] VITALS: Ht 152.4 cm; Wt 59.0 kg
--- OUTSIDE RECORDS SUMMARY | ~2019-12-09 | XMS | Encounter Summary ---
Demographics + + + | Address | [address] | | | [place] [address] | + + + | Home Phone | | + + + | Preferred Language | Unknown | + + + | Marital Status | Unknown | + + + | Sabianism Affiliation | Unknown | + + + | Race | Unknown | + + + | Ethnic Group | Unknown | + + + Author + + + | Author | [facility] | | | and [place] | + + + | Organization | [facility] | | | and [place] | + + + | Address | Unknown | + + + | Phone | Unavailable | + + + Support + + +---------+ + | Name | Relationship | Address | Phone | + + +---------+ + | Holley James | ECON | Unknown | | + + +---------+ + | Guillermo Pearson ECON | Unknown | | + + +---------+ + Care Team Providers + +------+ + | Care Head Sugar Reprocess Operator Name | Role | Phone | + +------+ + | Danish Nichole NP | PCP | | + +------+ + Encounter Details +--------+ + + + + | Date | Type | Department | Care Team | Description | +--------+ + + + + | 01/18/ | Imaging | [facility] | Provider, | | | 2017 | Exam | [facility] | MD [address] | | | | | [address] | [address] | | | | | [address] | [place] [address] | | | | | [place] [address] | | | | | | [phone] | | | +--------+ + + + + Social History + +-------+ +--------+------+ | Tobacco Use | Types | Packs/Day | Years | Date | | | | | Used | | + +-------+ +--------+------+ | Former Smoker | | 1 | 2 | | + +-------+ +--------+------+ + + +---------+ + | Alcohol Use | Drinks/Week | oz/Week | Comments | + + +---------+ + | Yes | | | | + + +---------+ + + + + | Sex Assigned at | Date Recorded | | | | + + + | Not on file | | + + + documented as of this encounter Plan of Treatment Not on filedocumented as of this encounter Procedures + +--------+ + + + | Procedure Name | Priori | Date/Time | Associated Diagnosis | Comments | | | ty | | | | + +--------+ + + + | XR ELBOW LEFT 3 + VW | Routin | 01/16/2017 | | Results for this | | | e | 3:15 PM | | procedure are in the | | | | PDT | | results section. | + +--------+ + + + documented in this encounter Results XR Elbow Left 3 + Vw (01/16/2017 3:15 PM PDT) + + | Specimen | + + | | + + + + + | Narrative | Performed At | + + + | External films for comparison only - no result from [place]. | [facility] | + + + + +---------+ + + | Performing | Address | City/State/Zipcode | Phone Number | | Organization | | | | + +---------+ + + | [facility] | | | | + +---------+ + + documented in this encounter Visit Diagnoses Not on filedocumented in this encounter"
--- OUTSIDE RECORDS SUMMARY | ~2019-12-09 | XMS | Encounter Summary ---
Demographics + + + | Address | [address] | | | [place] [address] | + + + | Home Phone | | + + + | Preferred Language | Unknown | + + + | Marital Status | Unknown | + + + | Yarsani Affiliation | Unknown | + + + | Race | Unknown | + + + | Ethnic Group | Unknown | + + + Author + + + | Author | [facility] | | | and [place] | + + + | Organization | [facility] | | | and [place] | [...] Team Providers + +------+ + | Care Studio Coordinator Name | Role | Phone | + +------+ + | Jung Mclean MD | PCP | | + +------+ + Reason for Visit + +--------+ + | Reason | Onset | Comments | | | Date | | + +--------+ + | Medication Refill | 03/11/ | | | | 2019 | | + +--------+ + Encounter Details +--------+ + + + + | Date | Type | Department | Care Team | Description | +--------+ + + + + | 03/11/ | Telephone | [facility] | Barbara Mendoza | Medication Refill | | 2019 | | [facility] | [facility] [address] | | | | | [address] | [facility] | | | | | [facility] | [place] | | | | | [place], [place] | [address] | | | | | [address] | | | | | | [phone] | | | +--------+ + + + + Social History + +-------+ +--------+ + | Tobacco Use | Types | Packs/Day | Years | Date | | | | | Used | | + +-------+ +--------+ + | Former Smoker | | 1 | 2 | Quit: 2005 | + +-------+ +--------+ + + +---+---+---+ | Smokeless Tobacco: | | | | | Never Used | | | | + +---+---+---+ + + +---------+ + | Alcohol Use | Drinks/Week | oz/Week | Comments | + + +---------+ + | Not Currently | | | | + + +---------+ + + + + | Sex Assigned at | Date Recorded | | | | + + + | Not on file | | + + + documented as of this encounter Miscellaneous Notes Telephone Encounter - Barbara Mendoza ARNP - 03/11/2019 1:31 PM PDT----- Message nishant Singh, Electro Mechanical Technologist sent at 03/11/2019 13:09 PDT ----- Can you send in an rx for vitamin d2 to [facility] in [place] documented in this encounter Plan of Treatment Not on filedocumented as of this encounter Visit Diagnoses Not on filedocumented in this encounter"
--- OUTSIDE RECORDS SUMMARY | ~2019-12-09 | XMS | Encounter Summary ---
Demographics + + + | Address | [address] | | | [place] [address] | + + + | Home Phone | | + + + | Preferred Language | Unknown | + + + | Marital Status | Unknown | + + + | Church Affiliation | Unknown | + + + | Race | Unknown | + + + | Ethnic Group | Unknown | + + + Author + + + | Author | [facility] | | | and [place] | + + + | Organization | [facility] | | | and [place] [...] Team Providers + +------+ + | Care Seed Laboratory Assistant Name | Role | Phone | + +------+ + | Jung Mclean MD | PCP | | + +------+ + Reason for Visit +--------+ + | Reason | Comments | +--------+ + | Other | Established patient is here today due to nidhi that started | | | over a year ago when she started taking methotrexate for her | | | psoriasis. Patient stopped taking the methotrexate a year ago | | | but continues to lose ample amounts of hair every day. She | | | states that her thyroid was tested and came back within normal | | | range. Patient is currently taking biotin. Patient states she | | | has been on cosentyx for her psoriasis and has had good | | | improvement but uses hydrocortisone 2.5% for any small breakouts. | +--------+ + Evaluate & Treat (Routine) +--------+--------+ + + + + | Status | Reason | Specialty | Diagnoses / | Referred By | Referred To | | | | | Procedures | Contact | Contact | +--------+--------+ + + + + | Closed | | Dermatology | Diagnoses | [facility] | Terrell | | | | | Alopecia | Татьяна Bianchi, | Dermatology | | | | | [place], | [place] [address] [address] | [address] | | | | | unspecified | [address] | [address] | | | | | | [address] | [place], [place] | | | | | | [place], [place] | [address] | | | | | | [address] | Phone: | | | | | | Phone: | [phone] | | | | | | [phone] | Fax: | | | | | | Fax: | [phone] | | | | | | [phone] | | +--------+--------+ + + + + Encounter Details +--------+---------+ + + + | Date | Type | Department | Care Team | Description | +--------+---------+ + + + | 01/30/ | Office | [facility] | Barbara Mendoza | Alopecia (Primary | | 2019 | Visit | PLASTIC SURGERY AND | Ryan, HOME HEALTH CARE CASE MANAGER [address] | Dx); Psoriasis | | | | DER[address]OLOG[address] | [address] | vulgaris; Hirsutism; | | | | [address] | [place] | Acne vulgaris | | | | [place] | [id number] | | | | | [address] | | | | | | [phone] | | | +--------+---------+ + + + Social History + +-------+ [...] + + documented as of this encounter Last Filed Vital Signs + + + + + | Vital Sign | Reading | Time Taken | Comments | + + + + + | Blood Pressure | - | - | | + + + + + | Pulse | - | - | | + + + + + | Temperature | - | - | | + + + + + | Respiratory Rate | - | - | | + + + + + | Oxygen Saturation | - | - | | + + + + + | Inhaled Oxygen | - | - | | | Concentration | | | | + + + + + | Weight | 59 kg (130 lb) | 2019 9:04 AM | | | | | PDT | | + + + + + | Height | - | - | | + + + + + | Body Mass Index | 25.39 | 10/10/2017 1:06 PM | | | | | PDT | | + + + + + documented in this encounter Patient Instructions Patient Instructions Danny iSngh New Car Make Ready Mechanic - 2019 9:00 AM PDTFormrowena mosley of this note might be different from the original. -Discussed treating with low dose of Spironolactone and getting some labs done and possibly referring to endocrinology if numbers are very off. Polycystic Ovary Syndrome Polycystic ovary syndrome (PCOS) causes harmless, smallcysts in the ovaries and other sym ptoms. PCOS is caused by certain hormones being out of balance. The word syndrome mean s a group of symptoms. Women with PCOS may have no periods, irregular periods, or very long periods. Your ovaries Women store their eggs in their ovaries. Each egg is in a capsule called a follicle. Normal ly during the reproductive years, one follicle grows to produce a mature egg each month. Thi s egg is released during ovulation and the follicle dissolves. Hormones out of balance With polycystic ovary syndrome (PCOS), the hormones that control ovulation are out of dina ce. These include estrogen, progesterone, and androgen.As a result, ovulation may not occu r. Instead, thefollicle stays enlarged. This is a fluid-filled sac called a cyst. Over tripp e, the ovaries fill with many small cysts. This is why they are called poly or many cystic ovaries. In some women, the ovaries also make toomuch androgen. PCOS symptoms Women with PCOS may also have one or more of these symptoms: Acne Hair growth on the face and other parts of the body Patches of thickened, velvety, darkened skin called acanthosis nigricans Trouble getting (fertility problems) Weight gain, especially around the waist Women with PCOS are also at increased risk of developing cancer of the uterine lining,kaiser betes, and heart disease. Date Last Reviewed: 11/08/201619997605-1457 The [employer]. [address] [place] [id number]. All righ ts reserved. This information is not intended as a substitute for professional medical care. Always follow your healthcare professional's instructions. documented in this encounter Progress Notes Barbara Mendoza, HOME HEALTH CARE CASE MANAGER - 2019 9:00 AM PDT Subjective Patient ID: Leta Menon is a 39 y.o. female. Established patient is here today due to hairloss that started over a year ago when she sta rted taking methotrexate for her psoriasis. Patient stopped taking the methotrexate a year ago but continues to lose ample amounts of hair every day. She states that her thyroid was tested and came back within normal range. Pt has had a hysterectomy but continues to have o ne ovary. She has facial hair that grows as well. Patient is currently taking biotin. Jeanette fuller states she has been on cosentyx for her psoriasis and has had good improvement but uses hydrocortisone 2.5% for any small breakouts. The following elements of the patient's history were reviewed and updated as appropriate. T hey are available elsewhere in the patient record. allergies, current medications, past fam mario history, past medical history, past social history, past surgical history and problem li st Review of Systems Constitutional: Negative. Skin: Hair loss Objective Wt 59 kg (130 lb) | BMI 25.39 kg/m Physical Exam Constitutional: She is oriented to person, place, and time. She appears well-developed and well-nourished. HENT: Head: Normocephalic. Eyes: Pupils are equal, round, and reactive to light. Neck: Normal range of motion. Neck supple. Pulmonary/Chest: Effort normal. Abdominal: Soft. Musculoskeletal: Normal range of motion. Neurological: She is alert and oriented to person, place, and time. Skin: Skin is warm and dry. Thinning of hair present diffusely throughout scalp. Dermatoscopy reveals many anagen hairs , scalp is without erythema or scale. Course brown hairs present on the chin and mandible Psychiatric: She has a normal mood and affect. Her behavior is normal. Assessment /Plan Assessment Androgenic Alopecia. -Discussed treating with low dose of Spironolactone and getting some labs done and possibly referring to endocrinology if numbers are very off. 1. Alopecia (Primary) - Ferritin; Future - Testosterone, Total and Free, LC/MS/MS; Future - DHEA; Future - Comprehensive Metabolic Panel; Future - CBC no Differential; Future - Estradiol; Future - Prolactin; Future - Vitamin D, Deficiency Screen (25-Hydroxy); Future - Vitamin B-12 and Folate; Future 2. Psoriasis vulgaris Comments: Stable Orders: - hydrocortisone 2.5% cream; APPLY CREAM TO WET SKIN ON FACE/EARS TWICE DAILY NEEDED FOR ITCHING AND RASH Dispense: 60 g; Refill: 3 3. Hirsutism - Ferritin; Future - Testosterone, Total and Free, LC/MS/MS; Future - DHEA; Future - Comprehensive Metabolic Panel; Future - CBC no Differential; Future - Estradiol; Future - Prolactin; Future - Vitamin D, Deficiency Screen (25-Hydroxy); Future - Vitamin B-12 and Folate; Future 4. Acne vulgaris This is a patient with multiple medical problems that require considerable time and reflect ion in order to properly evaluate and manage. Avoidance of adverse drug interactions and opt imization of treatment/therapy is the primary goal. Complex analysis and decision making was involved in today's visit. Danny Baird CMA, am scribing for, and in the presence of ARMIN Delarosa DCNP . IBarbara DCNP, personally performed the services described in this documentati on, as scribed by Danny Singh CMA in my presence, and it is both accurate and complete. documented in this encounter Plan of Treatment + +------+--------+ + + | Name | Type | Priori | Associated Diagnoses | Order Schedule | | | | ty | | | + +------+--------+ + + | Testosterone, Total | Lab | Routin | Alopecia | 1 Occurrences | | and Free, LC/MS/MS | | e | Hirsutism | starting 2019 | | | | | | until 01/31/2020 | + +------+--------+ + + | DHEA | Lab | Routin | Alopecia | 1 Occurrences | | | | e | Hirsutism | starting 2019 | | | | | | until 01/31/2020 | + +------+--------+ + + | Comprehensive | Lab | Routin | Alopecia | 1 Occurrences | | Metabolic Panel | | e | Hirsutism | starting 2019 | | | | | | until 01/31/2020 | + +------+--------+ + + | CBC no Differential | Lab | Routin | Alopecia | 1 Occurrences | | | | e | Hirsutism | starting 2019 | | | | | | until 01/31/2020 | + +------+--------+ + + | Estradiol | Lab | Routin | Alopecia | 1 Occurrences | | | | e | Hirsutism | starting 2019 | | | | | | until 01/31/2020 | + +------+--------+ + + | Prolactin | Lab | Routin | Alopecia | 1 Occurrences | | | | e | Hirsutism | starting 2019 | | | | | | until 01/31/2020 | + +------+--------+ + + | Vitamin B-12 and | Lab | Routin | Alopecia | 1 Occurrences | | Folate | | e | Hirsutism | starting 2019 | | | | | | until 01/31/2020 | + +------+--------+ + + documented as of this encounter Procedures + +--------+ + + + | Procedure Name | Priori | Date/Time | Associated Diagnosis | Comments | | | ty | | | | + +--------+ + + + | LABS - EXTERNAL SCAN | | 2019 | | Results for this | | | | 12:00 AM | | procedure are in the | | | | PDT | | results section. | + +--------+ + + + documented in this encounter Results LABS - EXTERNAL SCAN (2019 12:00 AM PDT) + + + | Narrative | Performed At | + + + | Ordered by an | | | unspecified provider. | | + + + documented in this encounter Visit Diagnoses + + | Diagnosis | + + | Alopecia - Primary Alopecia, unspecified | + + | Psoriasis vulgaris Other psoriasis | + + | Hirsutism | + + | Acne vulgaris Other acne | + + documented in this encounter"
--- OUTSIDE RECORDS SUMMARY | ~2019-12-09 | XMS | Encounter Summary ---
Demographics + + + | Address | [address] | | | [place] [address] | + + + | Home Phone | | + + + | Preferred Language | Unknown | + + + | Marital Status | Unknown | + + + | Muslim Affiliation | Unknown | + + + | Race | Unknown | + + + | Ethnic Group | Unknown | + + + Author + + + | Author | [facility] | | | and [place] | + + + | Organization | [facility] | | | and [place] | [...] Team Providers + +------+ + | Care Blueprinting And Photocopy Supervisor Name | Role | Phone | + +------+ + | Jung Mclean MD | PCP | | + +------+ + Encounter Details +--------+ + + + + | Date | Type | Department | Care Team | Description | +--------+ + + + + | 03/20/ | Orders Only | [facility] | Ade Gallardo | Telogen effluvium | | 2019 | | PLASTIC SURGERY AND | [address] | (Primary Dx) | | | | [address]ER[address] | [address] | | | | | [facility] | [place] [address] | | | | | [place], [place] | [phone] | | | | | [address] | | | | | | [phone] | | | +--------+ + + + + Social History + +-------+ +--------+ + | Tobacco Use | Types | Packs/Day | Years | Date | | | | | Used | | + +-------+ +--------+ + | Former Smoker | | 1 | 2 | Quit: 2004 | + +-------+ +--------+ + + +---+---+---+ [...] filedocumented as of this encounter Visit Diagnoses + + | Diagnosis | + + | Telogen effluvium - Primary | + + documented in this encounter"
--- OUTSIDE RECORDS SUMMARY | ~2019-12-09 | XMS | Encounter Summary ---
Demographics + + + | Address | [address] | | | [place] [address] | + + + | Home Phone | | + + + | Preferred Language | Unknown | + + + | Marital Status | Unknown | + + + | Episcopal Affiliation | Unknown | + + + | Race | Unknown | + + + | Ethnic Group | Unknown | + + + Author + + + | Author | [facility] | | | and [place] | + + + | Organization | [facility] | | | and [place] | [...] Team Providers + +------+ + | Care Immigration Judge Name | Role | Phone | + +------+ + | Jung Mclean MD | PCP | | + +------+ + Reason for Visit +--------+--------+ + | Reason | Onset | Comments | | | Date | | +--------+--------+ + | Other | 05/25/ | | | | 2019 | | +--------+--------+ + Encounter Details +--------+ + + + + | Date | Type | Department | Care Team | Description | +--------+ + + + + | 05/25/ | Telephone | [facility] | Barbara Mendoza | Other | | 2019 | | PLASTIC SURGERY AND | B, NURSE SPECIALIST [address] | | | | | DERMATOLOG[address] | [address] | | | | | [address] | [place] | | | | | [place], [place] | [address] | | | | | [address] | | | | | | [phone] | | | +--------+ + + + [...] this encounter Miscellaneous Notes Telephone Encounter - Felisha Acosta, Ambulance Operations Supervisor - 05/25/2019 4:06 PM SHIRLEY called pt and informed her of her results, explaining that her vitamin D was low and she needed to supplement. The rest of her labs were normal. She then asked if she needed to continue selin nunez iron, I the spoke with Barbara and informed her that she iron was normal and within limit s but she can continue it, that way her hair does not fall out, if she experiencing any cons tipation or other issues she can stop. Barbara will continue to refill iron and vitamin D un til the winter is over and then she will f/u with PCP for blood work and further refills if needed. She also asked if the iron will help with hair growth I then informed her that it wi ll help with not anymore hair loss, as far has hair regrowth it will take time 6 months to 1 year and f/u Barbara as needed. She indicated understanding and thanked me. elephone Encounter - Felisha Acosta Medical Assistant - 05/25/2019 4:05 PM PST----- Message from Jennifer johnston sent at 05/25/2019 3:15 PM PST ----- Patient called asking to speak to an MA regarding her lab results. docum ented in this encounter Plan of Treatment Not on filedocumented as of this encounter Visit Diagnoses Not on filedocumented in this encounter"
--- OUTSIDE RECORDS SUMMARY | ~2019-12-09 | XMS | Encounter Summary ---
Demographics + + + | Address | [address] | | | [place] [address] | + + + | Home Phone | | + + + | Preferred Language | Unknown | + + + | Marital Status | Unknown | + + + | Mu-Ism Affiliation | Unknown | + + + | Race | Unknown | + + + | Ethnic Group | Unknown | + + + Author + + + | Author | [facility] | | | and [place] | + + + | Organization | [facility] | | | and [...] Team Providers + +------+ + | Care Ambulatory Care Coordinator Name | Role | Phone | + +------+ + | Danish Nichole NP | PCP | | + +------+ + Reason for Visit + +--------+ + | Reason | Onset | Comments | | | Date | | + +--------+ + | Lab Results | 01/04/ | | | | 2016 | | + +--------+ + Encounter Details +--------+ + + + + | Date | Type | Department | Care Team | Description | +--------+ + + + + | 01/04/ | Telephone | [facility] [place] | Sanjiv Shine, | Lab Results | | 2017 | | PH[address]SIATRY [address] | MD [address] | | | | | [address] | [place], [place] | | | | | [place], [place] | [address] | | | | | [address] | | | | | | [phone] | | | +--------+ + + + [...] this encounter Miscellaneous Notes Telephone Encounter - May Blanton - 01/04/2017 12:01 PM PDTPatient returned call. Lab r esults were given to the patient. On the glucose, per patient she was not fasting. Patient v erbalized understanding el ephone Encounter - Allyssa Hernandez, Gluing Machine Operator Automatic - 01/04/2017 11:42 AM PDTCalled to inform Leta Menon of her lab results. Labs from 12/28/16 were unremarkable except for the exception of glucose levels were a bit elevated. Question if she was fasting for labs? L eft a voicemail message to give our office a call back documented in this encounter Plan of Treatment Not on filedocumented as of this encounter Visit Diagnoses Not on filedocumented in this encounter"
--- OUTSIDE RECORDS SUMMARY | ~2019-12-09 | XMS | Encounter Summary ---
Demographics + + + | Address | [address] | | | [place] [address] | + + + | Home Phone | | + + + | Preferred Language | Unknown | + + + | Marital Status | Unknown | + + + | Rastafari Affiliation | Unknown | + + + | Race | Unknown | + + + | Ethnic Group | Unknown | + + + Author + + + | Author | [facility] | | | and [place] | + + + | Organization | [facility] | | | and [place] [...] Team Providers + +------+ + | Care Creative Producer Name | Role | Phone | + [...] | | | | [address] | [place] [address] | | | | | [place] [address] | | | | | | [phone] | | | +--------+ + + + [...] + +--------+ + + + | XR HAND RIGHT 3 + VW | Routin | 12/28/2016 | | Results for this | | | e | 7:10 AM | | procedure are in the | | | | PDT | | results section. | + +--------+ + + + documented in this encounter Results LATRELL Berrios Right 3 + Vw (12/28/2016 7:10 AM PDT) + + | Specimen | + + | | + + + + + | Narrative | Performed At | + + + | External films for comparison only - no result from [facility]. | [facility] | + + + + +---------+ + + | Performing | Address | City/State/Zipcode | Phone Number | | Organization | | | | + +---------+ + + | [facility] | | | | + +---------+ + + documented in this encounter Visit Diagnoses Not on filedocumented in this encounter"
--- OUTSIDE RECORDS SUMMARY | ~2019-12-09 | XMS | Encounter Summary ---
Demographics + + + | Address | [address] | | | [place] [address] | + + + | Home Phone | | + + + | Preferred Language | Unknown | + + + | Marital Status | Unknown | + + + | Scientology Affiliation | Unknown | + + + | Race | Unknown | + + + | Ethnic Group | Unknown | + + + Author + + + | Author | [facility] | | | and [place] | + + + | Organization | [facility] | | | and [place] | [...] Team Providers + +------+ + | Care Hairspring Vibrator Name | Role | Phone | + +------+ + | Danish Nichole NP | PCP | | + +------+ + Reason for Referral Evaluate & Treat (Routine) +--------+ + + + + + | Status | Reason | Specialty | Diagnoses / | Referred By | Referred To | | | | | Procedures | Contact | Contact | +--------+ + + + + + | Closed | Specialty | Orthopedic | Diagnoses | Rl, | | | | Services | Surgery | Bilateral | Sanjiv Floyd MD | | | | Required | | carpal | [address] | | | | | | tunnel | [address] | | | | | | syndrome | [place], | | | | | | [place] | [place] [address] | | | | | | tunnel | Phone: | | | | | | syndrome on | [phone] | | | | | | left | Fax: | | | | | | | [phone] | | +--------+ + + + + + Reason for Visit + + + | Reason | Comments | + + + | Procedure | BUE NCS | + + + Evaluate & Treat (Routine) +--------+ + + + + + | Status | Reason | Specialty | Diagnoses / | Referred By | Referred To | | | | | Procedures | Contact | Contact | +--------+ + + + + + | Closed | Specialty | Physical | Diagnoses | Rl, | Sanjiv Shine | | | Services | Medicine and | Numbness in | Sanjiv Floyd MD | Shilpa Floyd MD [address] | | | Required | Rehabilitatio | both hands | [address] | | | | n | Hand | [address] | [place], | | | | | weakness | [place], | [place] [address] | | | | | Procedures | [place] [address] | Phone: | | | | | DOS 12/08/14 | Phone: | [phone] | | | | | | [phone] | Fax: | | | | | | Fax: | [phone] | | | | | | [phone] | | +--------+ + + + + + Encounter Details +--------+ + + + + | Date | Type | Department | Care Team | Description | +--------+ + + + + | 12/08/ | Procedure | [facility] | Sanjiv Shine, | Bilateral carpal | | 2015 | visit | PHYSIATRY [address] | [address] | tunnel syndrome | | | | [address] | [place] | (Primary Dx); | | | | [place] | [address] | [place] tunnel | | | | [address] | | syndrome on left | | | | [phone] | | | +--------+ + + + [...] + + + | Blood Pressure | 115/70 | 12/08/2014 2:31 PM | | | | | PDT | | + + + + + | Pulse | 78 | 12/08/2014 2:31 PM | | | | | PDT | | + + + + + | Temperature | - | - | | + + + + + | Respiratory Rate | 18 | 12/08/2014 2:31 PM | | | | | PDT | | + + + + + | Oxygen Saturation | - | - | | + + + + + | Inhaled Oxygen | - | - | | | Concentration | | | | + + + + + | Weight | 59 kg (130 lb) | 12/08/2014 2:31 PM | | | | | PDT | | + + + + + | Height | 152.4 cm (5') | 12/08/2014 2:31 PM | | | | | PDT | | + + + + + | Body Mass Index | 25.39 | 12/08/2014 2:31 PM | | | | | PDT | | + + + + + documented in this encounter Patient Instructions Patient Instructions Sanjiv Shine MD - 12/08/2014 3:56 PM PDTYou have carpal tunnel sy ndrome in both wrists. It is worse on the right. It is recommended that you have carpal tunnel release surgery with an orthopedic surgeon. Orthopedic surgery consult has been requested with Dr. Gna. It is recommended that you have the right treated first, followed by the left. There was evidence of injury to the ulnar nerve at the left elbow, also known as cubital tu nnel syndrome. Avoid placing pressure in the inside of the left elbow. Avoid activities that require repe titive flexion and extension of the left elbow. If pain into the left pinky persist in the future, please return to the clinic.Electronical ly signed by Sanjiv Shine MD at 12/08/2014 3:58 PM PDT documented in this encounter Progress Notes Sanjiv Shine MD - 12/08/2014 5:13 PM PDTFormatting of this note might be different fro m the original. [facility] Physical Medicine & Rehabilitation [address] [place] [address], [address] [place] [address] Test Date: 12/08/2014 Patient Name: Leta Menon : 1980 Physician: Sanjiv Shine MD (Jr.) MR #: [id number] Sex: Female Referring Physician: Danish Nichole NP HISTORY: Leta Menon reports that she has had bilateral hand numbness for at least 10 years if not longer. She reports that the symptoms are worse in the right hand compared to the left h and. She reports that her hand numbness is intermittent. She reports that she was diagnosed with diabetes around 20 years ago. She denies a history of thyroid disease. She denies neck pain. She denies pain, numbness, weakness or tingling in either lower extremity. She reports that she has pain in her fingers but not her wrists. She reports that her fourth fingers lo ck or trigger bilaterally. She reports that hand numbness is intermittent, but occurs daily. She reports that her hand numbness is worse at night and wakes her from sleep at night. She reports that hand numbness is brought on by any activity that uses her hands. She reports t hat mowing the lawn will make her hands numb. She reports that gripping a steering wheel and driving a car can make her hands numb. She reports that numbness is strongest over the seco nd, third and fourth fingers bilaterally. She reports having a different kind of pain in her left fifth finger that may be unrelated to her hand numbness. She reports weakness in both hands which she describes as loss of toy assembler wood strength. She reports difficulty opening jars. She reports that has dropped objects on occasion. She denies taking any blood thinning medicati ons such as Coumadin or heparin. She denies having implanted electronic device such as a pac emaker. She reports that she may have hand nerve study years ago, but she is not sure who di d her nerve study, here in [place], [place]. PHYSICAL EXAM: Alert and oriented, cranial nerves intact, speech normal, concentration intact, memory inta ct. Sensory intact to light touch and pin prick in all four extremities. Subjective decrease d sensation over the second, third, and fourth fingers bilaterally. Strength is normal 5/5 i n both upper extremities with biceps, triceps, wrist dorsiflexion, finger abduction bilatera lly. She had 4/5 hand toy assembler wood bilaterally. Strength is normal 5/5 in both lower extremities wit h hip flexion, knee flexion, knee extension, ankle dorsiflexion, ankle plantar flexion and E HL. Deep tendon reflexes are 2+ in both upper extremities over the biceps, triceps, and brac hioradialis bilaterally. Deep tendon reflexes are 2+ in both lower extremities over the buckley lla and Achilles. Babinski's was down going bilaterally. There was no clonus at either ankle . Tinel's test was positive over the median nerves at both wrists. Phalen's test was positiv e bilaterally. Nerve Conduction Studies Anti Sensory Summary Table Site NR Peak (ms) Norm Peak (ms) O-P Amp (V) Norm O-P Amp Site1 Site2 Delta-0 (ms) Dist (cm) Graham (m/s) Norm Graham (m/s) Left Median Anti Sensory (2nd Digit) 24.7C Wrist 3.7 <3.6 31.5 >10 Wrist 2nd Digit 3.0 14.0 47 >39 Elbow 7.8 12.4 Elbow Wrist 4.1 21.0 51 >48 Right Median Anti Sensory (2nd Digit) 24.7C Wrist 4.8 <3.6 5.6 >10 Wrist 2nd Digit 4.2 14.0 33 >39 Elbow NR Elbow Wrist 20.2 >48 Left Radial Anti Sensory (Base 1st Digit) 24.7C Wrist 2.3 <2.7 44.6 Wrist Base 1st Digit 1.7 10.0 59 Right Radial Anti Sensory (Base 1st Digit) 24.6C Wrist 2.4 <2.7 24.6 Wrist Base 1st Digit 1.8 10.0 56 Left Ulnar Anti Sensory (5th Digit) 24.6C Wrist 3.1 <3.7 33.8 >15.0 Wrist 5th Digit 2.5 14.0 56 >38 B Elbow 5.9 13.0 B Elbow Wrist 2.7 16.2 60 >47 A Elbow 8.0 13.3 A Elbow B Elbow 2.0 10.0 50 Right Ulnar Anti Sensory (5th Digit) 24.7C Wrist 2.9 <3.7 41.0 >15.0 Wrist 5th Digit 2.4 14.0 58 >38 B Elbow 5.5 18.2 B Elbow Wrist 2.5 15.8 63 >47 A Elbow 7.1 15.4 A Elbow B Elbow 1.7 10.0 59 Motor Summary Table Site NR Onset (ms) Norm Onset (ms) O-P Amp (mV) Norm O-P Amp Site1 Site2 Delta-0 (ms) Dist (cm) Graham (m/s) Norm Graham (m/s) Left Median Motor (Abd Poll Brev) 24.7C Wrist 4.2 <4.2 10.0 >5 Elbow Wrist 4.6 22.3 48 >50 Elbow 8.8 10.1 Axilla Elbow 1.4 8.0 57 Axilla 10.2 9.1 Right Median Motor (Abd Poll Brev) 24.6C Wrist 6.1 <4.2 7.4 >5 Elbow Wrist 4.8 23.5 49 >50 Elbow 10.9 5.9 Axilla Elbow 0.7 7.0 100 Axilla 11.6 5.4 Left Ulnar Motor (Abd Dig Minimi) 24.6C Wrist 2.8 <4.2 11.6 >3 B Elbow Wrist 3.1 16.0 52 >53 B Elbow 5.9 10.8 A Elbow B Elbow 2.4 10.0 42 >53 A Elbow 8.3 10.6 Right Ulnar Motor (Abd Dig Minimi) 24.6C Wrist 3.0 <4.2 10.9 >3 B Elbow Wrist 2.6 15.0 58 >53 B Elbow 5.6 10.2 A Elbow B Elbow 1.9 10.0 53 >53 A Elbow 7.5 9.8 Left Ulnar Inching Motor (ADM) 24.5C -5cm 5.7 8.7 -2.5cm -5cm 0.4 2.5 63 -2.5cm 6.1 9.5 Epicondyle -2.5cm 0.7 2.5 36 Epicondyle 6.8 8.4 +2.5cm Epicondyle 0.9 2.5 28 +2.5cm 7.7 9.5 +5cm +2.5cm 0.6 2.5 42 +5cm 8.3 9.2 Comparison Summary Table Site NR Peak (ms) Norm Peak (ms) P-T Amp (V) Site1 Site2 Delta-P (ms) Norm Delta (ms) Left Median/Radial Dig I Comparison (Digit 1 - 10cm) 24.6C Median 3.1 <2.9 37.9 Median Radial 0.7 <0.4 Radial 2.4 <2.8 8.9 Right Median/Radial Dig I Comparison (Digit 1 - 10cm) 24.7C Median 4.5 <2.9 12.1 Median Radial 1.9 <0.4 Radial 2.6 <2.8 11.9 Left Median/Ulnar Dig IV Comparison (Digit 4 - 14cm) 24.5C Median Wr 4.2 <3.3 3.1 Median Wr Ulnar Wr 1.2 <0.4 Ulnar Wr 3.0 <3.3 20.8 Right Median/Ulnar Dig IV Comparison (Digit 4 - 14cm) 24.7C Median Wr NR <3.3 Median Wr Ulnar Wr <0.4 Ulnar Wr 2.8 <3.3 51.1 Left Median/Ulnar Palm Comparison (Wrist - 8cm) 24.7C Median Palm 2.8 <2.5 27.1 Median Palm Ulnar Palm 0.9 <0.3 Ulnar Palm 1.9 <2.5 13.8 Right Median/Ulnar Palm Comparison (Wrist - 8cm) 24.5C Median Palm 6.5 <2.5 28.8 Median Palm Ulnar Palm 4.7 <0.3 Ulnar Palm 1.8 <2.5 43.9 F Wave Studies NR F-Lat (ms) Lat Norm (ms) L-R F-Lat (ms) L-R Lat Norm Left Median (Mrkrs) (Abd Poll Brev) 24.6C 27.87 <33 2.37 <2.2 Right Median (Mrkrs) (Abd Poll Brev) 24.6C 30.24 <33 2.37 <2.2 Left Ulnar (Mrkrs) (Abd Dig Min) 24.6C 25.65 <36 0.24 <2.5 Right Ulnar (Mrkrs) (Abd Dig Min) 24.6C 25.89 <36 0.24 <2.5 EMG Side Muscle Nerve Root Ins Act Fibs Psw Amp Dur Poly Recrt Int Pat Comment Right Deltoid Axillary C5-6 Nml Nml Nml Nml Nml Nml Nml Nml Right Biceps Musculocut C5-6 Nml Nml Nml Nml Nml Nml Nml Nml Right Triceps Radial C6-7-8 Nml Nml Nml Nml Nml Nml Nml Nml Right Anconeus Radial C7-8 Nml Nml Nml Nml Nml Nml Nml Nml Right PronatorTeres Median C6-7 Nml Nml Nml Nml Nml Nml Nml Nml Right 1stDorInt Ulnar C8-T1 Nml Nml Nml Nml Nml Nml Nml Nml Right Abd Poll Brev Median C8-T1 Nml Nml Nml Nml Nml Nml Nml Nml Left Deltoid Axillary C5-6 Nml Nml Nml Nml Nml Nml Nml Nml Left Biceps Musculocut C5-6 Nml Nml Nml Nml Nml Nml Nml Nml Left Triceps Radial C6-7-8 Nml Nml Nml Nml Nml Nml Nml Nml Left Anconeus Radial C7-8 Nml Nml Nml Nml Nml Nml Nml Nml Left PronatorTeres Median C6-7 Nml Nml Nml Nml Nml Nml Nml Nml Left 1stDorInt Ulnar C8-T1 Nml Nml Nml Nml Nml Nml Nml Nml Left Abd Poll Brev Median C8-T1 Nml Nml Nml Nml Nml Nml Nml Nml Nerve Conduction Studies Motor Left/Right Comparison Site L Lat (ms) R Lat (ms) L-R Lat (ms) L Amp (mV) R Amp (mV) L-R Amp (%) Site1 Site2 L Ve l (m/s) R Graham (m/s) L-R Graham (m/s) Median Motor (Abd Poll Brev) 24.7C Wrist 4.2 6.1 1.9 10.0 7.4 26.0 Elbow Wrist 48 49 1 Elbow 8.8 10.9 2.1 10.1 5.9 41.6 Axilla Elbow 57 100 43 Axilla 10.2 11.6 1.4 9.1 5.4 40.7 Ulnar Motor (Abd Dig Minimi) 24.6C Wrist 2.8 3.0 0.2 11.6 10.9 6.0 B Elbow Wrist 52 58 6 B Elbow 5.9 5.6 0.3 10.8 10.2 5.6 A Elbow B Elbow 42 53 11 A Elbow 8.3 7.5 0.8 10.6 9.8 7.5 Ulnar Inching Motor (ADM) 24.5C -5cm 5.7 8.7 -2.5cm -5cm 63 -2.5cm 6.1 9.5 Epicondyle -2.5cm 36 Epicondyle 6.8 8.4 +2.5cm Epicondyle 28 +2.5cm 7.7 9.5 +5cm +2.5cm 42 +5cm 8.3 9.2 Anti Sensory Left/Right Comparison Site L Lat (ms) R Lat (ms) L-R Lat (ms) L Amp (V) R Amp (V) L-R Amp (%) Site1 Site2 L Graham (m/s) R Graham (m/s) L-R Graham (m/s) Median Anti Sensory (2nd Digit) 24.7C Wrist 3.7 4.8 1.1 31.5 5.6 82.2 Wrist 2nd Digit 47 33 14 Elbow 7.8 12.4 Elbow Wrist 51 Radial Anti Sensory (Base 1st Digit) 24.7C Wrist 2.3 2.4 0.1 44.6 24.6 44.8 Wrist Base 1st Digit 59 56 3 Ulnar Anti Sensory (5th Digit) 24.6C Wrist 3.1 2.9 0.2 33.8 41.0 17.6 Wrist 5th Digit 56 58 2 B Elbow 5.9 5.5 0.4 13.0 18.2 28.6 B Elbow Wrist 60 63 3 A Elbow 8.0 7.1 0.9 13.3 15.4 13.6 A Elbow B Elbow 50 59 9 Comparison Left/Right Comparison Site L Lat (ms) R Lat (ms) L-R Lat (ms) L Amp (V) R Amp (V) L-R Amp (%) Median/Radial Dig I Comparison (Digit 1 - 10cm) 24.6C Median 3.1 4.5 1.4 37.9 12.1 68.1 Radial 2.4 2.6 0.2 8.9 11.9 25.2 Median/Ulnar Dig IV Comparison (Digit 4 - 14cm) 24.5C Median Wr 4.2 3.1 Ulnar Wr 3.0 2.8 0.2 20.8 51.1 59.3 Median/Ulnar Palm Comparison (Wrist - 8cm) 24.7C Median Palm 2.8 6.5 3.7 27.1 28.8 5.9 Ulnar Palm 1.9 1.8 0.1 13.8 43.9 68.6 NCV FINDINGS: Evaluation of the Left median motor nerve showed mildly prolonged distal onse t latency and decreased conduction velocity (Elbow-Wrist). The Right median motor nerve mari wed prolonged distal onset latency and decreased conduction velocity (Elbow-Wrist). The Lef t ulnar motor nerve showed decreased conduction velocity (B Elbow-Wrist) and decreased condu ction velocity (A Elbow-B Elbow). The Left Ulnar Inching motor nerve showed decreased condu ction velocity (Epicondyle--2.5cm) and decreased conduction velocity (+2.5cm-Epicondyle). T he Left median sensory nerve showed prolonged distal peak latency. The Right median sensory nerve showed no response (Elbow), prolonged distal peak latency, reduced amplitude, and dec reased conduction velocity (Wrist-2nd Digit). The Left median/radial (dig I) comparison and the Right median/radial (dig I) comparison nerves showed prolonged distal peak latency (Med giuliano) and abnormal peak latency difference (Median-Radial). The Left median/ulnar (dig IV) c omparison nerve showed prolonged distal peak latency (Median Wr) and abnormal peak latency d ifference (Median Wr-Ulnar Wr). The Right median/ulnar (dig IV) comparison nerve showed no response (Median Wr). The Left median/ulnar (palm) comparison and the Right median/ulnar (p addis) comparison nerves showed prolonged distal peak latency (Median Palm) and abnormal peak latency difference (Median Palm-Ulnar Palm). All remaining nerves (as indicated in the foll owing tables) were within normal limits. All F Wave latencies were within normal limits. EMG FINDINGS: All examined muscles (as indicated in the following table) showed no evidence of electrical instability. IMPRESSION: This is an abnormal study. Nerve conduction study of the right upper extremity is abnormal. Nerve conduction study of the right upper extremity demonstrates moderate median neuropathy at the right wrist consis tent with carpal tunnel syndrome. There is no evidence of ulnar neuropathy in the right upp er extremity. There is no evidence of radial neuropathy in the right upper extremity. Nerve conduction study of the left upper extremity is abnormal. Nerve conduction study of the left upper extremity demonstrates mild to moderate median neuropathy at the left wrist c onsistent with carpal tunnel syndrome. The nerve study also demonstrates mild ulnar neuropa thy at the left medial epicondyle consistent with cubital tunnel syndrome. There is no evid ence of radial neuropathy in the left upper extremity. This study cannot rule out the presence of peripheral neuropathy since a lower extremity wa s not performed. However there was no evidence of peripheral neuropathy in either upper ext remity. Needle EMG of both upper extremities was normal. There was no evidence of cervical radicul opathy in either upper extremity. DISCUSSION: Ms. Menon demonstrated excellent tolerance to nerve conduction study and EMG of both uppe r extremities. She was able to complete the entire exam. As noted above, this study demonstrates bilateral carpal tunnel syndrome, moderate on the r ight and mild to moderate on the left. The study also demonstrates mild left cubital tunnel syndrome. Today we reviewed that because of her history of diabetes she is at increased risk for deve loping focal neuropathies including carpal tunnel syndrome. We discussed that she is at inc reased risk of peripheral neuropathy. We also discussed hat because she has diabetes her ne rves may not heal as well. Regarding her left cubital tunnel syndrome she was advised to avoid pressure to the medial aspect of the left elbow and to avoid repetitive flexion and extension of the elbow. She re ports pain into her left pinky. She was asked to return to the clinic if her ulnar symptoms get worse or fail to improve. Regarding her carpal tunnel syndrome, sequential bilateral carpal tunnel release is recomme nded. Orthopedic surgery consult has been requested with Scott Gan MD to consider sequ ential bilateral carpal tunnel release surgery. Since her symptoms are worse on the right a nd her nerve study indicates that the right is numerical worse, would recommend right carpal tunnel release first. We discussed that without carpal tunnel release the injury to the nerves can get progressiv gustavo worse over time and can become permanent. Approximately 15 minutes was spent face to face today with Ms. Menon, beyond the completi on of the nerve conduction study and EMG above, over half of which was spent formulating and discussing her medical treatment plan. Thank you for allowing me to be involved in the care of your patient. If you have any quest ions or comments, please do not hesitate to call. Sanjiv Shine MD (Jr.) Physical Medicine and Rehabilitation Cc: SANDRA Oconnor MD documented in this en counter Plan of Treatment + + +--------+ + + | Name | Type | Priori | Associated Diagnoses | Order Schedule | | | | ty | | | + + +--------+ + + | Orthopedic Surgery, | Outpatient | Routin | Bilateral carpal | Ordered: 12/08/2014 | | External - AMB | Referral | e | tunnel syndrome | | | Referral | | | Cubital tunnel | | | | | | syndrome on left | | + + +--------+ + + documented as of this encounter Visit Diagnoses + + | Diagnosis | + + | Bilateral carpal tunnel syndrome - Primary Carpal tunnel syndrome | + + | Cubital tunnel syndrome on left Lesion of ulnar nerve | + + documented in this encounter"
--- OUTSIDE RECORDS SUMMARY | ~2019-12-09 | XMS | Encounter Summary ---
Demographics + + + | Address | [address] | | | [place] [address] | + + + | Home Phone | | + + + | Preferred Language | Unknown | + + + | Marital Status | Unknown | + + + | Sikh Affiliation | Unknown | + + + | Race | Unknown | + + + | Ethnic Group | Unknown | + + + Author + + + | Author | [facility] | | | and [place] | + + + | Organization | [facility] | [...] Team Providers + +------+ + | Care S Iron Worker Name | Role | Phone | + +------+ + | Jung Mclean MD | PCP | | + +------+ + Reason for Visit +--------+--------+ + | Reason | Onset | Comments | | | Date | | +--------+--------+ + | Other | 03/06/ | | | | 2019 | | +--------+--------+ + Encounter Details +--------+ + + + + | Date | Type | Department | Care Team | Description | +--------+ + + + + | 03/06/ | Telephone | [facility] | Barbara Mendoza | Other | | 2019 | | PLASTIC SURGERY AND | B, LOCKSTITCH FRONT MAKER [address] | | | | [address] | [address] | | | | | [address] | [place] | | | | | [place], [place] | [address] | | | | | [address] | | | | | | [phone] | | | +--------+ + + + [...] Miscellaneous Notes Telephone Encounter - Felisha Acosta, Neonatal Doctor - 03/06/2019 4:36 PM PDTI called pt and stated that yes she would like the orders faxed to [facility] and thanked me. Electro nically signed by Felisha Acosta, Neonatal Doctor at 03/06/2019 4:37 PM PDTTelephone Enc ounter - Barbara Mendoza ARNP - 03/06/2019 4:17 PM PDTI was wanting to have her blood work rechecked in 3 months so end of April. This blood work should already be in her art. If she would like to, it can be faxed over to [facility]. Thank you, ARMIN Delarosa, DCNP From: Aysha Taylor Sent: 03/06/2019 8:47 To: Felisha Acosta, Neonatal Doctor, # Patient called and was wanting to know if Barbara wanted her to get her bloodwork re-done t o check her iron levels since she's been taking a supplement for a while. Please review and call patient back. Thank you! documented in this encounter Plan of Treatment Not on filedocumented as of this encounter Visit Diagnoses Not on filedocumented in this encounter"
--- OUTSIDE RECORDS SUMMARY | ~2019-12-09 | XMS | Encounter Summary ---
Demographics + + + | Address | [address] | | | [place] [address] | + + + | Home Phone | | + + + | Preferred Language | Unknown | + + + | Marital Status | Unknown | + + + | Samaritan Affiliation | Unknown | + + + | Race | Unknown | + + + | Ethnic Group | Unknown | + + + Author + + + | Author | [facility] | | | and [place] | + + + | Organization | [facility] | | | and [place] [...] Team Providers + +------+ + | Care Burr Machine Operator Name | Role | Phone | + +------+ + | Jung Mclean MD | PCP | | + +------+ + Encounter Details +--------+ + + + + | Date | Type | Department | Care Team | Description | +--------+ + + + + | 12/16/ | Orders Only | [facility] | Barbara Mendoza | Telogen effluvium | | 2019 | | PLASTIC SURGERY AND | B, DOCTOR CHIROPRACTIC [address] | | | | | [address] | [address] | | | | | [address] | [place], [place] | | | | | [place], [place] | [id number] | | | | | [address] | | | | | | [phone] | | | +--------+ + + + [...] Diagnosis | + + | Telogen effluvium | + + documented in this encounter"
--- OUTSIDE RECORDS SUMMARY | ~2019-12-09 | XMS | Encounter Summary ---
Demographics + + + | Address | [address] | | | [place] [address] | + + + | Home Phone | | + + + | Preferred Language | Unknown | + + + | Marital Status | Unknown | + + + | Hoahaoism Affiliation | Unknown | + + + | Race | Unknown | + + + | Ethnic Group | Unknown | + + + Author + + + | Author | [facility] | | | and [place] | + + + | Organization | [facility] | | | and [place] [...] Team Providers + +------+ + | Care Butt Maker Name | Role | Phone | + +------+ + | Jung Mclean MD | PCP | | + +------+ + Reason for Visit +---------+--------+ + | Reason | Onset | Comments | | | Date | | +---------+--------+ + | Results | 05/22/ | | | | 2019 | | +---------+--------+ + Encounter Details +--------+ + + + + | Date | Type | Department | Care Team | Description | +--------+ + + + + | 05/22/ | Telephone | [facility] | Barbara Mendoza | Results | | 2019 | | PLASTIC SURGERY AND | B, MECHANIC FOREMAN [address] | | | | [address] | [address] | | | | | [address] | [place], [place] | | | | | [place], [place] | [address] | | | | | [address] | | | | | | [phone] | | | +--------+ + + + [...] this encounter Miscellaneous Notes Telephone Encounter - Jennifer Andrews - 05/25/2019 3:14 PM PSTPatient called asking to s peak to an MA regarding her lab results. Electronically signed by Jennifer Andrews at 2018 3:15 PM PSTTelephone Encounter - Danny Singh, Heel Sprayer - 05/22/2019 12:0 5 PM PSTI left a vm for a return call to discuss lab results. Danny Singh, Heel Sprayer ejonathon harrell Encounter - Danny Singh Heel Sprayer - 05/22/2019 12:04 PM PST----- Message from Jennifer Andrews sent at 05/22/2019 8:30 AM PST ----- Patient called asking if we received her lab results yet, please call pt back, thanks! uan harrell Encounter - Jennifer Andrews - 05/22/2019 8:29 AM PSTPatient called asking if we have received her lab results. I sent Barbara's team a message. documented in this encounter Plan of Treatment Not on filedocumented as of this encounter Visit Diagnoses Not on filedocumented in this encounter"
--- OUTSIDE RECORDS SUMMARY | ~2019-12-09 | XMS | Encounter Summary ---
Demographics + + + | Address | [address] | | | [place] [address] | + + + | Home Phone | | + + + | Preferred Language | Unknown | + + + | Marital Status | Unknown | + + + | Adventist Affiliation | Unknown | + + + | Race | Unknown | + + + | Ethnic Group | Unknown | + + + Author + + + | Author | [facility] | | | and [place] | + + + | Organization | [facility] | | | and [place] | + + + | Address | Unknown | + + + | Phone | Unavailable | + + + Support + + +---------+ + | Name | Relationship | Address | Phone | + + +---------+ + | Holley James | ECON | Unknown | | + + +---------+ + | Guillermo MENSAH | Unknown | | + + +---------+ + Care Team Providers + +------+ + | Care Fixed Income Manager Name | Role | Phone | + +------+ + | Jung Mclean MD | PCP | | + +------+ + Reason for Visit +---------+--------+ + | Reason | Onset | Comments | | | Date | | +---------+--------+ + | Results | 05/20/ | patient get lab results from outside lab and fax to us. | | | 2019 | | +---------+--------+ + Encounter Details +--------+ + + + + | Date | Type | Department | Care Team | Description | +--------+ + + + + | 05/20/ | Telephone | [facility] | Betina Mendoza | Results (patient get | | 2019 | | PLASTIC SURGERY AND | B, B2B SALES REPRESENTATIVE [address] | lab results from | | | | [address] | [address] | outside lab and fax | | | | [place] | [place] | to us.) | | | | [place] | [address] | | | | | [address] | | | | | | [phone] | | | +--------+ + + + [...] this encounter Miscellaneous Notes Telephone Encounter - Danny Singh Therapy Technician - 05/20/2019 10:34 AM PSTPatient called asking if we had gotten her lab results yet. She had them drawn last week [place]. I stated we have not yet received a fax from them and I encouraged her to reach out to her lab and request that they fax them to us. I stated we would call her as soon as we get them and betina has reviewed them. She expressed understanding and said she would contact them. Danny Singh, Therapy Technician mary ented in this encounter Plan of Treatment Not on filedocumented as of this encounter Visit Diagnoses Not on filedocumented in this encounter"
--- OUTSIDE RECORDS SUMMARY | ~2019-12-09 | XMS | Encounter Summary ---
Demographics + + + | Address | [address] | | | [place] [address] | + + + | Home Phone | | + + + | Preferred Language | Unknown | + + + | Marital Status | Unknown | + + + | Tenriism Affiliation | Unknown | + + + | Race | Unknown | + + + | Ethnic Group | Unknown | + + + Author + + + | Author | [facility] | | | and [place] | + + + | Organization | [facility] | | | and [place] | + + + | Address | Unknown | + + + | Phone | Unavailable | + + + Support + + +---------+ + | Name | Relationship | Address | Phone | + + +---------+ + | Holley James | ECON | Unknown | | + + +---------+ + | Guillermo James | ECON | Unknown | | + + +---------+ + Care Team Providers + +------+ + | Care Admissions Clerk Name | Role | Phone | + +------+ + | Jung Mclean MD | PCP | | + +------+ + Reason for Visit + + + | Reason | Comments | + + + | Procedure | RUE NCS/EMG | + + + Evaluate & Treat (Routine) +--------+ + + + + + | Status | Reason | Specialty | Diagnoses / | Referred By | Referred To | | | | | Procedures | Contact | Contact | +--------+ + + + + + | Closed | Specialty | Physical | Diagnoses | Shine, | Sanjiv Shine | | | Services | Medicine and | Right elbow | Sanjiv Floyd MD | Shilpa Floyd MD [address] | | | Required | Rehabilitatio | pain | [address] | | | | n | Numbness and | [address] | [place], | | | | | tingling in | [place], | [place] [address] | | | | | right hand | [place] [address] | Phone: | | | | | Procedures | Phone: | [phone] | | | | | DOS 10/13/18 | [phone] | Fax: | | | | | | Fax: | [phone] | | | | | | [phone] | | +--------+ + + + + + Encounter Details +--------+ + + + + | Date | Type | Department | Care Team | Description | +--------+ + + + + | 10/08/ | Procedure | [facility] [place] | Sanjiv Shine, | Cubital tunnel | | 2018 | visit | PHYSIATRY [address] | MD [address] | syndrome on right, | | | | [address] | [place], [place] | mild (Primary Dx); | | | | [place] | [address] | Right elbow pain; | | | | [address] | | Chronic right | | | | [phone] | | shoulder pain; | | | | | | Numbness and | | | | | | tingling in right | | | | | | hand; Diabetes 1.5, | | | | | | managed as type 1 | | | | | | ([facility]); Psoriatic | | | | | | arthritis ([facility]); | | | | | | History of bilateral | | | | | | carpal tunnel | | | | | | release | +--------+ + + + + Social [...] this encounter Last Filed Vital Signs + +---------+ + + | Vital Sign | Reading | Time Taken | Comments | + +---------+ + + | Blood Pressure | 107/61 | 10/08/2018 2:23 PM | | | | | PDT | | + +---------+ + + | Pulse | 81 | 10/08/2018 2:23 PM | | | | | PDT | | + +---------+ + + | Temperature | - | - | | + +---------+ + + | Respiratory Rate | - | - | | + +---------+ + + | Oxygen Saturation | - | - | | + +---------+ + + | Inhaled Oxygen | - | - | | | Concentration | | | | + +---------+ + + | Weight | - | - | | + +---------+ + + | Height | - | - | | + +---------+ + + | Body Mass Index | - | - | | + +---------+ + + documented in this encounter Patient Instructions Patient Instructions Kimberly Khan RN - 10/08/2018 2:10 PM PDTPlease return to Dr. Mojica ms. You have mild right cubital syndrome. You may consider discussing a right elbow injection with Dr. Gan. Continue to avoid pressure to the right elbow. We will send the resutls to your Doctor. Electronically signed by Kimberly Khan RN at 3:22 PM PDT documented in this encounter Progress Notes Sanjiv Shine MD - 10/08/2018 2:10 PM PDTFormatting of this note might be different fro m the original. [facility] Physical Medicine & Rehabilitation [address], [address] [place] [address] Test Date: 10/08/2018 Patient Name: Leta Menon : 1980 Physician: Sanjiv Shine MD (Jr.) MR #: [id number] Sex: Female Referring Physician: Scott Gan MD HISTORY: Leta Menon presents to the clinic for previously scheduled electrodiagnostic study of the right upper extremity. Leta Menon denies any changes to her symptoms since she w as last seen 10/06/2018. She reports right medial elbow pain. She reports chronic right sh oulder pain. She reports tingling in the right hypothenar eminence and the right fourth and fifth fingers. She reports that her numbness is intermittent. She reports weakness in rig ht hand describes as loss of artificial stone applicator strength. She reports that her symptoms are exacerbated b y activities that require bending/flexing her right elbow. She reports that her symptoms ar e reduced by keeping her right elbow straight/extended. She has a history of diabetes vanessa macario type I, diagnosed around age 12. She has had prior bilateral carpal tunnel release and left cubital tunnel release. She has tried treating her right elbow symptoms with NSAIDs, p hysical therapy, activity change, time. She denies having implanted electronic device such as a pacemaker. She denies taking blood thinning medications such as Coumadin or heparin. PHYSICAL EXAM: Leta Menon is not in acute distress. She is alert and oriented to person, place, tripp e and situation. Her speech is normal. Her cranial nerves are grossly intact. She has int act sensation with monofilament to both upper extremities. She subjectively describes senso ry changes over right ulnar nerve distribution. She has normal 5/5 strength in both upper e xtremities with biceps, triceps, wrist dorsiflexion, finger abduction, and hand artificial stone applicator. Her r eflexes are normal 2+ over the biceps, triceps, and brachioradialis bilaterally. Spurling's test was negative. Tinel's test was positive over the ulnar nerve at the right wrist. Tin el's test was positive over the ulnar nerve at the right elbow. Tinel's test was positive o juan the median nerve at the right wrist. There was no focal muscle atrophy in either upper extremity. Costovertebral maneuver was negative on the right for thoracic outlet syndrome. Nerve Conduction Studies Anti Sensory Summary Table Site NR Peak (ms) Norm Peak (ms) O-P Amp (V) Norm O-P Amp Site1 Site2 Delta-0 (ms) Dist (cm) Graham (m/s) Norm Graham (m/s) Right Median Anti Sensory (2nd Digit) Wrist 4.0 <3.6 20.0 >10 Wrist 2nd Digit 3.3 14.0 42 >39 Elbow 7.4 6.8 Elbow Wrist 3.1 20.0 65 >48 Right Radial Anti Sensory (Base 1st Digit) Wrist 2.6 <2.7 22.6 Wrist Base 1st Digit 2.0 10.0 50 Right Ulnar Anti Sensory (5th Digit) Wrist 3.1 <3.7 32.6 >15.0 Wrist 5th Digit 2.5 14.0 56 >38 B Elbow 5.8 17.3 B Elbow Wrist 2.5 16.0 64 >47 A Elbow 7.7 15.7 A Elbow B Elbow 1.9 10.0 53 Motor Summary Table Site NR Onset (ms) Norm Onset (ms) O-P Amp (mV) Norm O-P Amp Site1 Site2 Delta-0 (ms) Dist (cm) Graham (m/s) Norm Graham (m/s) Right Median Motor (Abd Poll Brev) Macario-Geri Wrist 4.8 <4.2 10.8 >5 Elbow Wrist 3.8 19.0 50 >50 Elbow 8.6 7.0 Axilla Elbow 1.6 10.0 63 Axilla 10.2 10.2 Ulnar @ wrist Axilla 6.1 0.0 Ulnar @ wrist 4.1 5.2 Right Ulnar Motor (Abd Dig Minimi) Wrist 3.0 <4.2 12.9 >3 B Elbow Wrist 2.7 15.5 57 >53 B Elbow 5.7 12.3 A Elbow B Elbow 2.0 10.0 50 >53 A Elbow 7.7 12.0 Right Ulnar Inching Motor (ADM) -5cm 5.6 11.2 -2.5cm -5cm 0.3 2.5 83 -2.5cm 5.9 11.6 Epicondyle -2.5cm 0.6 2.5 42 Epicondyle 6.5 11.4 +2.5cm Epicondyle 0.8 2.5 31 +2.5cm 7.3 11.2 +5cm +2.5cm 0.4 2.5 62 +5cm 7.7 11.1 Comparison Summary Table Site NR Peak (ms) Norm Peak (ms) P-T Amp (V) Site1 Site2 Delta-P (ms) Norm Delta (ms) Right Median/Radial Dig I Comparison (Digit 1 - 10cm) Median 3.4 <2.9 24.3 Median Radial 0.6 <0.4 Radial 2.8 <2.8 7.1 Right Median/Ulnar Dig IV Comparison (Digit 4 - 14cm) Median Wr 4.3 <3.3 7.0 Median Wr Ulnar Wr 1.2 <0.4 Ulnar Wr 3.1 <3.3 36.9 Right Median/Ulnar Palm Comparison (Wrist - 8cm) Median Palm 2.8 <2.5 24.0 Median Palm Ulnar Palm 0.7 <0.3 Ulnar Palm 2.1 <2.5 24.2 F Wave Studies NR F-Lat (ms) Lat Norm (ms) L-R F-Lat (ms) L-R Lat Norm Right Median (Mrkrs) (Abd Poll Brev) 27.94 <33 <2.2 Right Ulnar (Mrkrs) (Abd Dig Min) 24.91 <36 <2.5 EMG Side Muscle Nerve Root Ins [...] Nml Nml Nml Nml Nml Nml Nml NCV FINDINGS: Evaluation of the Right median motor nerve showed prolonged distal onset late ncy. The Right ulnar motor nerve showed decreased conduction velocity (A Elbow-B Elbow). T he Right Ulnar Inching motor nerve showed mildly decreased conduction velocity (+2.5cm-Epico ndyle). The Right median sensory nerve showed prolonged distal peak latency. The Right med giuliano/radial (dig I) comparison nerve showed prolonged distal peak latency (Median) and abnorm al peak latency difference (Median-Radial). The Right median/ulnar (dig IV) comparison nerv e showed prolonged distal peak latency (Median Wr) and abnormal peak latency difference (Med giuliano Wr-Ulnar Wr). The Right median/ulnar (palm) comparison nerve showed prolonged distal pe ak latency (Median Palm) and abnormal peak latency difference (Median Palm-Ulnar Palm). All remaining nerves (as indicated in the following tables) were within normal limits. All F Wave latencies were within normal limits. EMG FINDINGS: All examined muscles (as indicated in the following table) showed no evidence of electrical instability. DATABASE: Right elbow x-ray 10/06/2018 imaging was personally reviewed by me. I concur with findings reported by the radiologist. The elbow x-ray is unremarkable. Neck x-ray 12/28/2016 imaging was personally reviewed by me. I concur with findings report s by the radiologist. The imaging demonstrates mild cervical spondylosis (greatest at C5-6) and straightening of normal cervical lordosis. COMPARISON: Today' study was compared to nerve conduction study of both upper extremities, performed by m[facility], 12/08/2014. Nerve study of left upper extremity from 01/16/2017 was also reviewed, but used for comparison of today's right upper extremity study. IMPRESSION: This is an abnormal study. Nerve conduction study of the right upper extremity was abnormal. Nerve conduction study o f the right upper extremity demonstrates mild ulnar neuropathy at and just below the medial epicondyle, consistent with cubital tunnel syndrome. There is also residual median neuropathy at the right wrist. Comparison to prior right upp er extremity nerve study 12/08/2014 (prior to her carpal tunnel release), demonstrates a sig nificant interval improvement today, 10/08/18. This would suggest that the changes seen on today's study are residual carpal tunnel syndrome and NOT recurrent carpal tunnel syndrome. There is no evidence of radial neuropathy in the right upper extremity. Needle EMG of the right upper extremity was normal. There was no evidence of cervical radi culopathy in the right upper extremity. Please note that absence of evidence is not proof o f absence. Cervical radiculopathy may still be present despite normal EMG. Please note lorena t nerve conduction study and EMG cannot diagnose, nor rule out the presence of cervical spin al stenosis. DISCUSSION: Leta Menon demonstrated normal tolerance to nerve conduction study and EMG. She was able to complete the entire study. As noted above, this study demonstrates mild ulnar neuropathy at and just below the medial epicondyle, consistent with cubital tunnel syndrome. Since the changes are mild, I would recommend right cubital tunnel steroid injection with Maisha Gan as diagnostic and potentially therapeutic step. Her response to local anesthetic m ay provide additional diagnostic information regarding the degree of her symptoms that are t he result of her mild ulnar neuropathy. If she has persisting symptoms right cubital tunnel release versus ulnar nerve transposition could be considered. She reports excellent respon se and reduction of symptoms following prior left cubital tunnel release (which was also mil d on her nerve conduction study 2014). Today we reviewed the association between her diagnosis of diabetes and focal pressure neur opathies such as cubital tunnel syndrome and carpal tunnel syndrome. We also reviewed assoc iation between diabetes and trigger fingers. Leta Menon has been instructed to follow up with Dr. Gan to review the report above , and discuss next steps in her treatment. Approximately 25 minutes was spent face to face with Leta Menon, over half of which w as spent formulating and discussing their medical treatment plan. Thank you for allowing me to be involved in the care of your patient. If you have any quest ions or comments, please do not hesitate to call. 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
--- OUTSIDE RECORDS SUMMARY | ~2019-12-09 | XMS | Encounter Summary ---
Demographics + + + | Address | [address] | | | [place] [address] | + + + | Home Phone [...] + + + | Author | [facility] | | | and [place] | + + + | Organization | [facility] | | | and [place] [...] Team Providers + +------+ + | Care Tourist Information Assistant Name | Role | Phone | + +------+ + | Jung Mclean MD | PCP | | + +------+ + Reason for Visit +--------+--------+ + | Reason | Onset | Comments | | | Date | | +--------+--------+ + | Other | 06/15/ | | | | 2020 | | +--------+--------+ + Encounter Details +--------+ + + + + | Date | Type | Department | Care Team | Description | +--------+ + + + + | 06/15/ | Telephone | [facility] | Betina Mendoza | Other | | 2020 | | PLASTIC SURGERY AND | B, INTERNET RETAILER [address] | | | | [address] | [address] | | | | | [address] | [place] | | | | | [place], [place] | [address] | | | | | [address] | | | | | | [phone] | | | +--------+ + + + [...] encounter Miscellaneous Notes Telephone Encounter - Danny Singh, Maintenance Worker Municipal - 06/15/2019 9:23 AM Dorothea called in this morning and stated that she is taking cosentyx (managed by rheumatology) and has been for years, but has been experiencing some tingling and numbness at the injection s ite on her left thigh. She has changed injection sites but the leg has remained the same in sensation. She wants to know if she can change to an oral medication. I told her I would speak to betina and get back to her. I called her right back after speaking to betina and stated that betina stated she cou ld switch to otezla but it likely would not give as good of coverage for her psoriasis like the cosentyx does. She also stated that she needs to be seen by her handle rounder operator since ey are the clinic managing her cosentyx. I encouraged her to call us back if she would like an appt to further discuss this with [facility] nathanael. She expressed understanding and thanked me for my call. Danny Singh, Maintenance Worker Municipal [place] ented in this encounter Plan of Treatment Not on filedocumented as of this encounter Visit Diagnoses Not on filedocumented in this encounter"
--- OUTSIDE RECORDS SUMMARY | ~2019-12-09 | XMS | Encounter Summary ---
Demographics + + + | Address | [address] | | | [place] [address] | + + + | Home Phone | | + + + | Preferred Language | Unknown | + + + | Marital Status | Unknown | + + + | Christian Affiliation | Unknown | + + + | Race | Unknown | + + + | Ethnic Group | Unknown | + + + Author + + + | Author | [facility] | | | and [place] | + + + | Organization | [facility] | | | and [place] [...] Team Providers + +------+ + | Care Clicker Operator Name | Role | Phone | + +------+ + | Jung Mclean MD | PCP | | + +------+ + Reason for Visit + +--------+ + | Reason | Onset | Comments | | | Date | | + +--------+ + | Abnormal Lab | 02/06/ | | | | 2019 | | + +--------+ + Encounter Details +--------+ + + + + | Date | Type | Department | Care Team | Description | +--------+ + + + + | 02/06/ | Telephone | [facility] | Barbara Mendoza | Abnormal Lab | | 2019 | | PLASTIC SURGERY AND | Ryan, MANAGER CHANNEL [address] | | | | | [address] | [address] | | | | | [facility] [address] | [place], [place] | | | | | [place], [place] | [address] | | | | | [address] | | | | | | [phone] | | | +--------+ + + + [...] Telephone Encounter - Barbara Mendoza ARNP - 02/06/2019 11:50 AM PDTPlease also bradford bhagat work and notify pt that I will send in f/u labs in 3 months to see if her iron and pebbles min d has improved. These can be faxed to her lab in [place]. rx has been sent to pt's ph raysa. Thank you, ARMIN Delarosa, MARYNP documented in this encounter Plan of Treatment + +------+--------+ + + | Name | Type | Priori | Associated Diagnoses | Order Schedule | | | | ty | | | + +------+--------+ + + | Vitamin D, | Lab | Routin | Telogen effluvium | 1 Occurrences | | Deficiency Screen | | e | | starting 02/06/2019 | | (25-Hydroxy) | | | | until 02/07/2020 | + +------+--------+ + + | Ferritin | Lab | Routin | Telogen effluvium | 1 Occurrences | | | | e | | starting 02/06/2019 | | | | | | until 02/07/2020 | + +------+--------+ + + documented as of this encounter Visit Diagnoses + + | Diagnosis | + + | Telogen effluvium - Primary | + + documented in this encounter"
--- OUTSIDE RECORDS SUMMARY | ~2019-12-09 | XMS | Encounter Summary ---
Demographics + + + | Address | [address] | | | [place] [address] | + + + | Home Phone | | + + + | Preferred Language | Unknown | + + + | Marital Status | Unknown | + + + | Mandaen Affiliation | Unknown | + + + | Race | Unknown | + + + | Ethnic Group | Unknown | + + + Author + + + | Author | [facility] | | | and [place] | + + + | Organization | [facility] | | | and [place] [...] Team Providers + +------+ + | Care Gas Operation Manager Name | Role | Phone | + +------+ + | Jung Mclean MD | PCP | | + +------+ + Encounter Details +--------+ + + + + | Date | Type | Department | Care Team | Description | +--------+ + + + + | 10/06/ | Hospital | [facility] | Sanjiv Shine Shilpa Floyd, | Right elbow pain; | | 2019 | Encounter | MED CTR XRAY [address] | MD [address] | Numbness and | | | | [address] [place] | [place], [place] | tingling in right | | | | [place] [address] | [address] | hand | | | | [phone] | | | +--------+ + + + [...] + + documented as of this encounter Medications at Time of Discharge + + + +---------+ + + | Medication | Sig | Dispensed | Refills | Start | End Date | | | | | | Date | | + + + +---------+ + + | azithromycin | | | 0 | 03/02/20 | | | (ZITHROMAX) 250 mg | | | | 18 | | | tablet | | | | | | + + + +---------+ + + | betamethasone | Apply bid to wet | | 0 | 06/27/19 | | | dipropionate 0.05% | skin on affected | | | 18 | | | ointment | areas prn | | | | | | | itching/rash | | | | | + + + +---------+ + + | Blood Glucose | | | 0 | 08/25/19 | | | Monitoring Suppl | | | | 19 | | | (FREESTYLE LITE) | | | | | | | KARY | | | | | | + + + +---------+ + + | cephalexin | | | 0 | 02/12/20 | | | (KEFLEX) 500 mg | | | | 18 | | | capsule | | | | | | + + + +---------+ + + | ciprofloxacin | | | 0 | //20 | | | (CIPRO) 500 mg | | | | 18 | | | tablet | | | | | | + + + +---------+ + + | clobetasol | | | 0 | /18/20 | | | (TEMOVATE) 0.05% | | | | 18 | | | ointment | | | | | | + + + +---------+ + + | diclofenac | | | 0 | //20 | | | (CATAFLAM) 50 MG | | | | 18 | | | tablet | | | | | | + + + +---------+ + + | diclofenac | | | 0 | 08/20/20 | | | (VOLTAREN) 1% GEL | | | | 18 | | + + + +---------+ + + | diclofenac | | | 0 | 07/10/19 | | | (VOLTAREN) 50 mg EC | | | | 19 | | | tablet | | | | | | + + + +---------+ + + | DULoxetine | Take 60 mg by mouth | | 0 | | | | (CYMBALTA) [address] | 2 times daily. | | | | | | capsule | | | | | | + + + +---------+ + + | ENBREL 50 MG/ML | | | 0 | 02/01/20 | | | injection (syringe) | | | | 18 | | + + + +---------+ + + | fluconazole | | | 0 | 02/12/20 | | | (DIFLUCAN) 150 mg | | | | 18 | | | tablet | | | | | | + + + +---------+ + + | fluconazole | | | 0 | 02/26/20 | | | (DIFLUCAN) 200 MG | | | | 18 | | | tablet | | | | | | + + + +---------+ + + | folic acid 1 mg | | | 0 | 06/12/19 | | | tablet | | | | 18 | | + + + +---------+ + + | FREESTYLE LANCETS | | | 0 | 05/16/20 | | | MISC | | | | 17 | | + + + +---------+ + + | gabapentin | Take 300 mg by mouth | | 0 | | | | (NEURONTIN) 300 mg | nightly. | | | | | | capsule | | | | | | + + + +---------+ + + | GLUCAGON EMERGENCY | | | 0 | 07/23/19 | | | 1 MG injection | | | | 19 | | + + + +---------+ + + | glucose blood | | | 0 | 06/19/19 | | | test strips | | | | 18 | | | (FREESTYLE LITE) | | | | | | | strip | | | | | | + + + +---------+ + + | | | | 0 | 01/31/20 | | | HYDROcodone-acetamin | | | | 18 | | | ophen (NORCO) 5-325 | | | | | | | mg per tablet | | | | | | + + + +---------+ + + | hydrOXYzine | Take 20 mg by mouth | | 0 | | | | hydrochloride | nightly. | | | | | | (ATARAX) 10 mg | | | | | | | tablet | | | | | | + + + +---------+ + + | insulin aspart | Use as directed per | | 0 | 06/19/19 | | | (NOVOLOG) 100 | sliding scale; | | | 18 | | | units/mL injection | 150-199: 2 units, | | | | | | | 200-249: 4 units, | | | | | | | 250-299: 6 units, | | | | | | | 300: 8 units before | | | | | | | meals and at bedtime | | | | | + + + +---------+ + + | insulin glargine | Inject 7 Units under | | 0 | 06/19/19 | | | (LANTUS) 100 | the skin every | | | 18 | | | units/mL injection | morning. And 10 | | | | | | (vial) | units at night. | | | | | + + + +---------+ + + | Insulin | Use as directed four | | 0 | 06/19/19 | | | Syringe-Needle U-100 | times a day | | | 18 | | | (RELION INSULIN SYR | | | | | | | 0.3ML/31G) 31G X | | | | | | | 5/16" 0.3 ML MISC | | | | | | + + + +---------+ + + | naproxen | | | 0 | 06/19/19 | | | (NAPROSYN) 500 mg | | | | 18 | | | tablet | | | | | | + + + +---------+ + + | oxyCODONE | | | 0 | 02/14/20 | | | (ROXICODONE) 5 mg | | | | 18 | | | tablet | | | | | | + + + +---------+ + + | | | | 0 | 02/25/20 | | | oxyCODONE-acetaminop | | | | 18 | | | hen (PERCOCET) 5-325 | | | | | | | mg per tablet | | | | | | + + + +---------+ + + | penicillin 500 mg | | | 0 | 01/31/20 | | | tablet | | | | 18 | | + + + +---------+ + + | phenazopyridine | Take 200 mg by mouth | | 0 | | | | (PYRIDIUM) 200 mg | 3 times daily. | | | | | | tablet | After meals | | | | | + + + +---------+ + + | secukinumab | Inject 300 mg under | | 0 | | | | (COSENTYX) 150 mg/mL | the skin Every 30 | | | | | | injection (syringe) | days. | | | | | + + + +---------+ + + | traMADol (ULTRAM) | | | 0 | 07/22/19 | | | 50 mg tablet | | | | 19 | | + + + +---------+ + + | triamcinolone | APPLY TO WET SKIN ON | | 0 | 09/23/19 | | | (KENALOG) 0.1% cream | AFFECTED AREAS | | | 19 | | | | TWICE DAILY | | | | | | | NEEDED FOR ITCHING | | | | | | | AND RASH | | | | | + + + +---------+ + + | hydrocortisone | APPLY CREAM TO WET | | 0 | 09/23/19 | | | 2.5% cream | SKIN ON FACE/EARS | | | 19 | 9 | | | TWICE DAILY | | | | | | | NEEDED FOR ITCHING | | | | | | | AND RASH | | | | | + + + +---------+ + + documented as of this encounter Plan of Treatment Not on filedocumented as of this encounter Procedures + +--------+ + + + | Procedure Name | Priori | Date/Time | Associated Diagnosis | Comments | | | ty | | | | + +--------+ + + + | XR ELBOW RIGHT 3 + | Routin | 10/06/2018 | Right elbow pain | Results for this | | VW | e | 11:40 AM | Numbness and | procedure are in the | | | | PDT | tingling in right | results section. | | | | | hand | | + +--------+ + + + documented in this encounter Results XR Elbow Right 3 + Vw (10/06/2018 11:40 AM PDT) + + | Specimen | + + | | + + + + + | Narrative | Performed At | + + + | CLINICAL INFORMATION: right elbow pain. COMPARISON: None | [facility] | | available. FINDINGS: 3 views of the right elbow. Bones: No | | | fracture or dislocation. No periostitis. Joints: No joint | | | effusion. Joint spaces are preserved and subchondral surfaces are | | | smooth. Soft tissue: No swelling or abnormal calcification. | | | IMPRESSION - Negative right elbow radiographs. Dictated and Signed | | | by: Te Ibanez MD Electronically signed: 10/06/2018 2:29 PM | | | | | + + + + + | Procedure Note | + + | Michael Curtis Results In - 10/06/2018 2:32 PM PDT CLINICAL INFORMATION: right elbow pain. | | | | COMPARISON: None available. | | | | FINDINGS: | | 3 views of the right elbow. | | | | Bones: No fracture or dislocation. No periostitis. | | | | Joints: No joint effusion. Joint spaces are preserved and subchondral surfaces | | are smooth. | | | | Soft tissue: No swelling or abnormal calcification. | | | | IMPRESSION - Negative right elbow radiographs. | | | | Dictated and Signed by: Te Ibanez MD | | Electronically signed: 10/06/2018 2:29 PM | + + + +---------+ + + | Performing | Address | City/State/Zipcode | Phone Number | | Organization | | | | + +---------+ + + | [facility] | | | | + +---------+ + + documented in this encounter Visit Diagnoses + + | Diagnosis | + + | Right elbow pain Pain in joint, upper arm | + + | Numbness and tingling in right hand Disturbance of skin sensation | + + documented in this encounter
--- OUTSIDE RECORDS SUMMARY | ~2019-12-09 | XMS | Encounter Summary ---
Demographics + + + | Address | [address] | | | [place] [address] | + + + | Home Phone | | + + + | Preferred Language | Unknown | + + + | Marital Status | Unknown | + + + | Cheondoism Affiliation | Unknown | + + + | Race | Unknown | + + + | Ethnic Group | Unknown | + + + Author + + + | Author | [facility] | | | and [place] | + + + | Organization | [facility] | | | and [place] [...] Team Providers + +------+ + | Care [place] Boatman Name | Role | Phone | + [...] + + | Closed | Specialty | Rheumatology | Diagnoses | Rl, | Susan, | | | Services | | Psoriatic | Sanjiv Floyd MD | MD Angela | | | Required | | arthritis | [address] | | | | ([facility]) | [address] | [place] | | | | | Procedures | [place], | [facility] | | | | | 01/17 | [place] [address] | [place], [place] | | | | | | Phone: | [phone] | | | | | | [phone] | Phone: | | | | | | Fax: | [phone] | | | | | | [phone] | Fax: | | | | | | | [phone] | +--------+ + + + + + Evaluate & Treat (Routine) +--------+ + + + + + | Status | Reason | Specialty | Diagnoses / | Referred By | Referred To | | | | | Procedures | Contact | Contact | +--------+ + + + + + | Closed | Specialty | Orthopedic | Diagnoses | Rl, | [facility] | | | Services | Surgery | Cubital | Sanjiv Floyd MD | [facility] | | | Required | | tunnel | [address] | HOSPITAL | | | | | syndrome on | [address] | [address] | | | | | left Left | [place], | AVE | | | | | elbow pain | [place] [address] | [place], [place] | | | | | Bilateral | Phone: | [phone] | | | | | wrist pain | [phone] | Phone: | | | | | Synovial | Fax: | [phone] | | | | | cyst of | [phone] | Fax: | | | | | wrist, | | [phone] | | | | | unspecified | | | | | | | laterality | | | | | | | Procedures | | | | | | | 8/10 | | | +--------+ + + + + + Reason for Visit Evaluate & Treat (Routine) +--------+ + + + + + | Status | Reason | Specialty | Diagnoses / | Referred By | Referred To | | | | | Procedures | Contact | Contact | +--------+ + + + + + | Closed | Specialty | Physical | Diagnoses | Shine, | [facility] | | | Services | Medicine and | Numbness | Sanjiv Floyd MD | Physiatry | | | Required | Rehabilitatio | and tingling | [address] | [address] | | | | n | in left | [address] | [address] | | | | | hand | [place], | [place], | | | | | Procedures | [place] [address] | [place] [address] | | | | | DOS 01/16 | Phone: | Phone: | | | | | | [phone] | [phone] | | | | | | Fax: | Fax: | | | | | | [phone] | [phone] | +--------+ + + + + + Encounter Details +--------+ + + + + | Date | Type | Department | Care Team | Description | +--------+ + + + + | 01/16/ | Procedure | [facility] | Sanjiv Shine, | Cubital tunnel | | 2017 | visit | PHYSIATRY [address] | [address] | syndrome on left | | | | [address] | [place], [place] | (Primary Dx); Left | | | | [place], [place] | [address] | elbow pain; | | | | [address] | | Psoriatic arthritis | | | | [phone] | | (HCC); Bilateral | | | | | | wrist pain; Synovial | | | | | | cyst of wrist, | | | | | | unspecified | | | | | | laterality; History | | | | | | of type 1 diabetes | | | | | | mellitus | +--------+ + + + + Social [...] + + documented as of this encounter Patient Instructions Patient Instructions Sanjiv Shine MD - 01/16/2017 2:00 PM PDTLeft elbow X-rays have be en requested. Please go to the x-ray department after your appointment to complete these x- rays. If your x-rays demonstrate any emergent results, the clinic will contact you. Follow up with Dr. 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 Cubital tunnel syndrome may be treated with splints, steroid injection, therapy, and surgic al correction. A consult has been requested with rheumatology for the treatment of psoriatic arthritis. Return to the clinic if you have persisting symptoms in the future. documented in this encounter Progress Notes Sanjiv Shine MD - 01/16/2017 2:00 PM PDTFormatting of this note might be different fro m the original. [facility] Physical Medicine & Rehabilitation [address] [place] [address], [address] [place] [address] Test Date: 01/16/2017 Patient Name: Leta Menon : 1980 Physician: Sanjiv Shine MD (Jr.) MR #: [id number] Sex: Female Referring Physician: Danish Nichole NP HISTORY: Leta Menon reports left elbow pain, bilateral wrist pain. She has mild neck pain but denies association of neck symptoms with the symptoms in her arm. She reports pain traveli ng form ulnar elbow into the left hand. She reports numbness in the left hypothenar eminenc e and in the left fourth and fifth fingers. She reports weakness in left hand. She left el bow pain with flexion and extension. She reports limited left elbow range of motion with ex tension. She has bilateral wrist pain. She denies any recent injury, but also reports mult iple falls onto outstretched hands, multiple times during her lifetime. She had recent wris t x-rays which demonstrate scaphoid cysts bilaterally. She reports hand stiffness in the mo rnings several hours after waking up. She has psoriasis. She had recent lab work up for rh eumatoid arthritis which was negative. She is here in the clinic today to evaluate left simon d numbness, weakness and elbow pain. She had recent cervical x-ray which demonstrated mild arthritic changes but did not reveal changes in the lower cervical spine that would correlat e with her left upper extremity symptoms. She has history of diabetes type I. She has hist ory of carpal tunnel syndrome with prior carpal tunnel release. PHYSICAL EXAM: Sensory exam demonstrates decrease sensation over the left hypothenar eminence and the left fourth and fifth fingers. Remainder of sensation was intact in both upper extremities. Sp urling s test was negative bilaterally. Tinel s test was positive over the ulnar nerve at the left elbow, negative on the right. Tinel s test was negative over the median nerve s at both wrists. Phalen s test was negative bilaterally. Reveres Phalen s test was ne gative bilaterally. There was mild pain near the base of both thumbs in the region of the s caphoids. There were psoriasis lesions over both elbows. Reflexes were 2+ over the biceps, triceps and brachioradialis bilaterally. Motor exam demonstrated 4/5 finger abduction on t he left compared to 5/5 on the right. There was 5/5 biceps, triceps, wrist dorsiflexion, an d hand regional liaison bilaterally. Nerve Conduction Studies Anti Sensory Summary Table Site NR Peak (ms) Norm Peak (ms) O-P Amp (V) Norm O-P Amp Site1 Site2 Delta-0 (ms) Dist (cm) Graham (m/s) Norm Graham (m/s) Left Median Anti Sensory (2nd Digit) Wrist 3.3 <3.6 35.8 >10 Wrist 2nd Digit 2.6 14.0 54 >39 Elbow 7.1 12.0 Elbow Wrist 3.8 20.0 53 >48 Left Radial Anti Sensory (Base 1st Digit) Wrist 2.3 <2.7 27.6 Wrist Base 1st Digit 1.7 10.0 59 Left Ulnar Anti Sensory (5th Digit) Wrist 3.1 <3.7 26.7 >15.0 Wrist 5th Digit 2.4 14.0 58 >38 B Elbow 6.0 11.9 B Elbow Wrist 2.8 15.0 54 >47 A Elbow 8.3 7.3 A Elbow B Elbow 2.4 10.0 42 Motor Summary Table Site NR Onset (ms) Norm Onset (ms) O-P Amp (mV) Norm O-P Amp Site1 Site2 Delta-0 (ms) Dist (cm) Graham (m/s) Norm Graham (m/s) Left Median Motor (Abd Poll Brev) Wrist 3.7 <4.2 11.3 >5 Elbow Wrist 3.8 20.0 53 >50 Elbow 7.5 10.6 Axilla Elbow 1.3 10.0 77 Axilla 8.8 11.3 Left Ulnar Motor (Abd Dig Minimi) Wrist 3.0 <4.2 12.0 >3 B Elbow Wrist 2.9 15.0 52 >53 B Elbow 5.9 10.4 A Elbow B Elbow 2.5 10.0 40 >53 A Elbow 8.4 9.1 Left Ulnar Inching Motor (ADM) -5cm 5.2 9.0 -2.5cm -5cm 0.7 2.5 36 -2.5cm 5.9 9.6 Epicondyle -2.5cm 0.5 2.5 50 Epicondyle 6.4 9.5 +2.5cm Epicondyle 1.1 2.5 23 +2.5cm 7.5 9.4 +5cm +2.5cm 0.7 2.5 36 +5cm 8.2 9.2 Comparison Summary Table Site NR Peak (ms) Norm Peak (ms) P-T Amp (V) Site1 Site2 Delta-P (ms) Norm Delta (ms) Left Median/Radial Dig I Comparison (Digit 1 - 10cm) Median 2.7 <2.9 45.4 Median Radial 0.1 <0.4 Radial 2.6 <2.8 10.1 Left Median/Ulnar Dig IV Comparison (Digit 4 - 14cm) Median Wr 3.4 <3.3 17.2 Median Wr Ulnar Wr 0.2 <0.4 Ulnar Wr 3.2 <3.3 19.2 Left Median/Ulnar Palm Comparison (Wrist - 8cm) Median Palm 2.1 <2.5 51.8 Median Palm Ulnar Palm 0.3 <0.3 Ulnar Palm 1.8 <2.5 35.8 F Wave Studies NR F-Lat (ms) Lat Norm (ms) L-R F-Lat (ms) L-R Lat Norm Left Median (Mrkrs) (Abd Poll Brev) 25.84 <33 <2.2 Left Ulnar (Mrkrs) (Abd Dig Min) 24.28 <36 <2.5 EMG Side Muscle Nerve Root Ins Act Fibs Psw Amp Dur Poly Recrt Int Pat Comment Left Deltoid Axillary C5-6 Nml Nml Nml [...] Nml Nml NCV FINDINGS: Evaluation of the Left ulnar motor nerve showed decreased conduction velocity (B Elbow-Wrist) and decreased conduction velocity (A Elbow-B Elbow). The Left Ulnar Inchin g motor nerve showed decreased conduction velocity (+2.5cm-Epicondyle). The Left median/uln ar (dig IV) comparison nerve showed prolonged distal peak latency (Median Wr). All remainin g nerves (as indicated in the following tables) were within normal limits. All F Wave latencies were within normal limits. EMG FINDINGS: All examined muscles (as indicated in the following table) showed no evidence of electrical instability. IMPRESSION: This is an abnormal study. Nerve conduction study of the left upper extremity was abnormal. Nerve conduction study of the left upper extremity demonstrates mild ulnar neuropathy at the left elbow consistent wi th cubital tunnel syndrome. There was no evidence of median neuropathy in the left upper ex tremity. There was no evidence of radial neuropathy in the left upper extremity. This study was compared to prior nerve conduction study which demonstrated carpal tunnel sy ndrome. There has been interval improvement in her carpal tunnel syndrome. She no longer m eets diagnostic criteria for carpal tunnel syndrome. Needle EMG of the left upper extremity was normal. There was no evidence of cervical radic ulopathy in the left upper extremity. Please note that absence of evidence is not proof of absence. Cervical radiculopathy may still be present despite a normal EMG study. However, cervical radiculopathy is less likely given the mild arthritic changes seen on cervical x-ra y, her minimal neck pain, her negative neck exam today, and left cubital tunnel syndrome as a clear origin to her symptoms at this time. Please note that nerve conduction study and EMG can never diagnose nor rule out cervical sp inal stenosis. Cervical MRI is recommended if cervical spinal stenosis is a clinical consid eration. DISCUSSION: Ms. Menon demonstrated excellent tolerance to nerve conduction study and EMG. She was ab le to complete the entire exam. As noted above, this study demonstrated mild ulnar neuropathy at the left elbow consistent with cubital tunnel syndrome. Ms. Menon would like to consider surgical treatment options. Orthopedic surgery consult has been requested with Scott Gan MD. Ms. Menon was encouraged to consider conservat lillian treatment measures: physical therapy, steroid injection, protecting the elbow with a sp lint for fixed period of time. She was advised to avoid repetitive flexion and extension of the left elbow. She was advised to avoid pressure over the left elbow, such as using arm r ests. She has elbow pain. She has limited elbow range of motion with extension. She may have as sociated elbow inflammation contributing to her symptoms. Left elbow x-ray has been request ed. She can review the x-rays with Dr. Gan. She has bilateral wrist pain. Recent x-rays demonstrate bilateral scaphoid cysts. She has been asked to review the x-rays with Dr. Gan. She denies any recent wrist/hand injury. In distant past she has had fall onto outstretched hands. She has morning stiffness. Her labs were negative for rheumatoid arthritis. She has psori asis. She has findings consistent with psoriatic arthritis. She has some benefit from NSAI Ds, but it is inadequate. Rheumatology consult has been requested to consider DMARD treatmen t for her psoriatic arthritis. Approximately 30 minutes was spent face to face today with Ms. Menon, beyond the completi on of her nerve conduction study and EMG, over half of which was spent formulating and discu ssing her medical treatment plan. If she has persisting symptoms in the future, she may return to the clinic for further eval uation. If she has persisting symptoms may consider cervical MRI in the future to evaluate for cervical spinal stenosis. Thank you for allowing me to be involved in the care of your patient. If you have any quest ions or comments, please do not hesitate to call. Sanjiv Shine MD (Jr.) Physical Medicine and Rehabilitation Cc: MD Danish Álvarez NP documented in this en counter Plan of Treatment + +---------+--------+ + + | Name | Type | Priori | Associated Diagnoses | Order Schedule | | | | ty | | | + +---------+--------+ + + | XR Elbow Left 3 + Vw | Imaging | Routin | Cubital tunnel | Expected: | | | | e | syndrome on left | 01/16/2017, Expires: | | | | | Left elbow pain | 01/16/2018 | + +---------+--------+ + + + + +--------+ + + | Name | Type | Priori | Associated Diagnoses | Order Schedule | | | | ty | | | + + +--------+ + + | Orthopedic Surgery, | Outpatient | Routin | Cubital tunnel | Ordered: 01/16/2017 | | External - AMB | Referral | e | syndrome on left | | | Referral | | | Left elbow pain | | | | | | Bilateral wrist pain | | | | | | Synovial cyst of | | | | | | wrist, unspecified | | | | | | laterality | | + + +--------+ + + | [facility] | [facility]patient | Routin | Psoriatic | Ordered: 01/16/2017 | | of [facility] - AMB | Referral | e | arthritis (HCC) | | | Referral | | | | | + + +--------+ + + documented as of this encounter Procedures + +--------+ + + + | Procedure Name | Priori | Date/Time | Associated Diagnosis | Comments | | | ty | | | | + +--------+ + + + | IMAGING REPORT - | | 01/16/2017 | | Results for this | | EXTERNAL SCAN | | 12:00 AM | | procedure are in the | | | | PDT | | results section. | + +--------+ + + + documented in this encounter Results IMAGING REPORT - EXTERNAL SCAN (01/16/2017 12:00 AM PDT) + + + | Narrative | Performed At | + + + | Ordered by an | | | unspecified provider. | | + + + documented in this encounter Visit Diagnoses + + | Diagnosis | + + | Cubital tunnel syndrome on left - Primary Lesion of ulnar nerve | + + | Left elbow pain Pain in joint, upper arm | + + | Psoriatic arthritis (HCC) Psoriatic arthropathy | + + | Bilateral wrist pain | + + | Synovial cyst of wrist, unspecified laterality | + + | History of type 1 diabetes mellitus Personal history of other endocrine, metabolic, | | and immunity disorders | + + documented in this encounter"
--- OUTSIDE RECORDS SUMMARY | ~2019-12-09 | XMS | Encounter Summary ---
Demographics + + + | Address | [address] | | | [place] [address] | + + + | Home Phone | | + + + | Preferred Language | Unknown | + + + | Marital Status | Unknown | + + + | Oriental Orthodox Affiliation | Unknown | + + + | Race | Unknown | + + + | Ethnic Group | Unknown | + + + Author + + + | Author | [facility] | | | and [place] | + + + | Organization | [facility] | | | and [place] | + + + | Address | Unknown | + + + | Phone | Unavailable | + + + Support + + +---------+ + | Name | Relationship | Address | Phone | + + +---------+ + | Holley James | ECON | Unknown | | + + +---------+ + | Guillermo MESNAH | Unknown | | + + +---------+ + Care Team Providers + +------+ + | Care Coding Quality Analyst Name | Role | Phone | + +------+ + | Danish Nichole NP | PCP | | + +------+ + Encounter Details +--------+ + + + + | Date | Type | Department | Care Team | Description | +--------+ + + + + | 09/29/ | Abstract | [facility] | Sanjiv Shine, | | | 2019 | | PHYSIATRY [address] | MD [address] | | | | | [address] | [place] | | | | | [place] | [address] | | | | | [address] | | | | | | [phone] | | | +--------+ + + + [...]
--- OUTSIDE RECORDS SUMMARY | ~2019-12-09 | XMS | Encounter Summary ---
Demographics + + + | Address | [address] | | | [place] [address] | + + + | Home Phone | | + + + | Preferred Language | Unknown | + + + | Marital Status | Unknown | + + + | Synagogue Affiliation | Unknown | + + + | Race | Unknown | + + + | Ethnic Group | Unknown | + + + Author + + + | Author | [facility] | | | and Danielana | + + + | Organization | [facility] | | | and [...] Team Providers + +------+ + | Care Field Account Director Name | Role | Phone | + +------+ + | Jung Mclean MD | PCP | | + +------+ + Encounter Details +--------+ + + + + | Date | Type | Department | Care Team | Description | +--------+ + + + + | 02/06/ | Orders Only | [facility] | Barbara Mendoza | Telogen effluvium | | 2019 | | PLASTIC SURGERY AND | Ryan, FORMULATION CHEMIST [address] | (Primary Dx) | | | | DERMATOLOGY [address] | [place] | | | | | [facility] | [place] [place] | | | | | [place], [place] | [address] | | | | | [address] | | | | | | [phone] | | | +--------+ + + + [...]
--- OUTSIDE RECORDS SUMMARY | ~2019-12-09 | XMS | Encounter Summary ---
Demographics + + + | Address | [address] | | | [place] [address] | + + + | Home Phone | | + + + | Preferred Language | Unknown | + + + | Marital Status | Unknown | + + + | Moravian Affiliation | Unknown | + + + | Race | Unknown | + + + | Ethnic Group | Unknown | + + + Author + + + | Author | [facility] | | | and [place]ana | + + + | Organization | [facility] | | | and [...] Team Providers + +------+ + | Care Numerical Control Nesting Operator Name | Role | Phone | + +------+ + | Jung Mclean MD | PCP | | + +------+ + Encounter Details +--------+ + + + + | Date | Type | Department | Care Team | Description | +--------+ + + + + | 05/26/ | Documentati | [facility] | Felisha Acosta, | | | 2019 | on | PLASTIC SURGERY AND | Stopper Setter | | | | | DERMATOLOGY [address] | | | | | | [address] | | | | | | [place] | | | | | | [address] | | | | | | [phone] | | | +--------+ + + + [...]
--- OUTSIDE RECORDS SUMMARY | ~2019-12-09 | XMS | Encounter Summary ---
Demographics + + + | Address | [address] | | | [place] [address] | + + + | Home Phone | | + + + | Preferred Language | Unknown | + + + | Marital Status | Unknown | + + + | Scientology Affiliation | Unknown | + + + | Race | Unknown | + + + | Ethnic Group | Unknown | + + + Author + + + | Author | [facility] | | | and Danielana | + + + | Organization | [facility] | | | and [...] Team Providers + +------+ + | Care Pr Manager Name | Role | Phone | + +------+ + | Danish Nichole NP | PCP | | + +------+ + Encounter Details +--------+ + + + + | Date | Type | Department | Care Team | Description | +--------+ + + + + | 01/21/ | Imaging | [facility] | Provider, | | | 2017 | Exam | [facility] | MD [address] | | | | | IMAGING [address] | [address] | | | | | [address] [address] | [place] [address] | | | | | [place] [address] | | | | | | [phone] | | | +--------+ + + + [...] +--------+ + + + | XR HAND LEFT 3 + VW | Routin | 12/28/2016 | | Results for this | | | e | 7:20 AM | | procedure are in the | | | | PDT | | results section. | + +--------+ + + + documented in this encounter Results LATRELL Berrios Left 3 + Vw (12/28/2016 7:20 AM PDT) + + | Specimen | + + | | + + + + + | Narrative | Performed At | + + + | External films for comparison only - no result from [place]. | [facility] | + + + + +---------+ + + | Performing | Address | City/State/Zipcode | Phone Number | | Organization | | | | + +---------+ + + | [facility] | | | | + +---------+ + + documented in this encounter Visit Diagnoses Not on filedocumented in this encounter"
--- OUTSIDE RECORDS SUMMARY | ~2019-12-09 | XMS | Encounter Summary ---
Demographics + + + | Address | [address] | | | [place] [address] | + + + | Home Phone [...] + + + | Author | [facility] | | | and [place]ana | + + + | Organization | [facility] | | | and [...] Team Providers + +------+ + | Care Food Service Steward Name | Role | Phone | + +------+ + | Jung Mclean MD | PCP | | + +------+ + Encounter Details +--------+ + + + + | Date | Type | Department | Care Team | Description | +--------+ + + + + | 01/07/ | Orders Only | [facility] | Provider, | | | 2019 | | SYSTEM GENERIC OP | [address] | | | | | [address] | [address] | | | | | [address] [place], [place] | [place] [address] | | | | | [address] | | | | | | [phone] | | | +--------+ + + + [...]
--- OUTSIDE RECORDS SUMMARY | ~2019-12-09 | XMS | Encounter Summary ---
Demographics + + + | Address | [address] | | | [place] [address] | + + + | Home Phone | | + + + | Preferred Language | Unknown | + + + | Marital Status | Unknown | + + + | Denominational Affiliation | Unknown | + + + | Race | Unknown | + + + | Ethnic Group | Unknown | + + + Author + + + | Author | [facility] | | | and [place]ana | + + + | Organization | [facility] | | | and [...] Team Providers + +------+ + | Care Bar Back Name | Role | Phone | + [...] | | | | [address] | [place] [address] | | | | | [place] [address] | | | | | | [phone] | | | +--------+ + + + [...] + +--------+ + + + | XR CERVICAL SPINE 4 | Routin | 12/28/2016 | | Results for this | | OR 5 VWS | e | 7:15 AM | | procedure are in the | | | | PDT | | results section. | + +--------+ + + + documented in this encounter Results XR Cervical Spine 4 or 5 Vws (12/28/2016 7:15 AM PDT) + + | Specimen | + + | | + + + + + | Narrative | Performed At | + + + | External films for comparison only - no result from [place]. | [facility] | + + + + +---------+ + + | Performing | Address | City/State/Zipcode | Phone Number | | Organization | | | | + +---------+ + + | [facility] | | | | + +---------+ + + documented in this encounter Visit Diagnoses Not on filedocumented in this encounter"
--- OUTSIDE RECORDS SUMMARY | ~2019-12-09 | XMS | Encounter Summary ---
Demographics + + + | Address | [address] | | | [place] [address] | + + + | Home Phone | | + + + | Preferred Language | Unknown | + + + | Marital Status | Unknown | + + + | Voodoo Affiliation | Unknown | + + + | Race | Unknown | + + + | Ethnic Group | Unknown | + + + Author + + + | Author | [facility] | | | and [place]ana | + + + | Organization | [facility] | | | and [place] [...] Team Providers + +------+ + | Care Organic Chemist Name | Role | Phone | + [...] | pain | [address] | | | | n | Numbness and | [address] | [place], | | | | | tingling in | [place], | [place] [address] | | | | | right hand | [place] [address] | Phone: | | | | | Procedures | Phone: | [phone] | | | | | DOS 10/13/18 | [phone] | Fax: | | | | | | Fax: | [phone] | | | | | | [phone] | | +--------+ + + + + + Reason for Visit + + + | Reason | Comments | + + + | Numbness | RUE | + + + Evaluate & Treat (Routine) +--------+--------+ + + + + | Status | Reason | Specialty | Diagnoses / | Referred By | Referred To | | | | | Procedures | Contact | Contact | +--------+--------+ + + + + | Closed | | Physical | Diagnoses | [place], | Shine, Sanjiv | | | | Medicine and | Lesion of | [place] | Shilpa Floyd MD [address] | | | | Rehabilitatio | ulnar nerve, | [address] | | | | n | right upper | [place] | [place], | | | | | limb | [address] | [place] [address] | | | | | | [place], | Phone: | | | | | | [place] [address] | [phone] | | | | | | Phone: | Fax: | | | | | | [phone] | [phone] | | | | | | Fax: | | | | | | | [phone] | | +--------+--------+ + + + + Encounter Details +--------+---------+ + + + | Date | Type | Department | Care Team | Description | +--------+---------+ + + + | 10/06/ | Office | [facility] | Sanjiv Shine, | Right elbow pain | | 2019 | Visit | PHYSIATRY [address] | MD [address] | (Primary Dx); | | | | [address] | [place], [place] | Numbness and | | | | [place], [place] | [address] | tingling in right | | | | [address] | | hand; Diabetes 1.5, | | | | [phone] | | managed as type 1 | | | | | | (HCC) | +--------+---------+ + + + Social History [...] +---------+ + + | Blood Pressure | 113/70 | 10/06/2018 2:04 PM | | | | | PDT | | + +---------+ + + | Pulse | 60 | 10/06/2018 2:04 PM | | | | | PDT [...] Instructions Patient Instructions Kimberly Khan RN - 10/06/2018 10:40 AM PDTX-rays have been request ed. Please go to the x-ray department after your appointment to complete these x-rays. The results of your x-rays will be reviewed at your next appointment. If your x-rays demonstra te any emergent results, the clinic will contact you. Please attend your scheduled nerve conduction study and EMG appointment. Nerve conduction studies and EMG require a great deal of time to complete. If you will be unable to make your appointment please contact the clinic at least one full business day bobo or to your appointment . Missed appoints without cancellation will only be re scheduled once. Children under the age of 13 are not permitted in the room during the nerve study. If acco mpanied by children under the age of 13, they will need an adult to supervise them, while th ey wait in the lobby. Prior to your appointment wash the skin with soap and water. This is to remove any of the natural oils on the skin which may interfere with the completion of the study. Please do not wear any lotion prior to the study as lotion may also interfere with the comp letion of the study. When attending your study please bring appropriate attire. If you are having a study of th e upper extremities please bring a short sleeve shirt to wear during the study. If you are having a study of the lower extremities please bring shorts to wear during the study. At the time of your study, please remind the physician if you are taking any blood thinning medications such as Coumadin, or heparin. At the time of your study, please remind the physician if you have an implanted electronic device such as a pacemaker. documented in this encounter Progress Notes Sanjiv Shine MD - 10/06/2018 10:40 AM PDTFormatting of this note might be different fro m the original. Physical Medicine & Rehabilitation Consult Referring Provider: Chaparro Teague PA Date of Service: 10/06/18 Patient ID: Leta Menon is a 38 y.o. female with right upper extremity numbness. HPI Leta Menon reports that she started having numbness in the right upper extremity, one year ago. Her symptoms have been worsening overtime. She reports neck pain. She rate her neck pain as 5 on a numerical pain scale. Her upper extremity numbness is intermittent. Her upper extremity numbness is strongest over the 4th and 5th fingers of right hand. Her upper extremity numbness is exacerbated by: driving, brushing/washing hair, sleeping an d elbow flexion. Her upper extremity numbness is reduced by: keeping the arm straight, rest and changing act ivity Her numbness does wake her from sleep. Leta Menon reports weakness. Leat Menon denies taking blood thinning medications such as Coumadin or heparin. She denies having implanted electronic device such as a pacemaker. She reports a history of diabetes. She denies a history of thyroid disease. She denies a history of rheumatoid arthritis. She does report a history psoriatic arthritis. She denies a history of chemical exposure. She denies a history of frequent alcohol consumption. Leta Menon reports that they have had previous nerve conduction study. Past Medical History Past Medical History: Diagnosis Date Abdominal cramping Arthritis with psoriasis (HCC) Bunion of great toe of right foot Diabetes mellitus, insulin-dependent (IDDM or type I) (HCC) Entrapment of left ulnar nerve at elbow 2017 Extensor tenosynovitis of left wrist Hand arthritis with history of carpal tunnel syndrome and surgery Interstitial cystitis Neuritis of right ulnar nerve Pain in right foot Psoriasis Psoriatic arthritis (HCC) Trigger finger of left thumb Tubal Past Surgical History Past Surgical History: Procedure Laterality Date CARPAL TUNNEL RELEASE Right 01/2015 CARPAL TUNNEL RELEASE Bilateral 2014 CARPAL TUNNEL RELEASE Left 03/2015 CYSTOSCOPY 05/2017 with hydrodistention CYSTOSCOPY 09/2017 with hydrodistention CYSTOSCOPY 02/2018 with hydrodistention CYSTOSCOPY 07/2018 with hydrodistention DeQuarvain's ECTOPIC SURGERY 2002 ELBOW SURGERY Left FINGER TRIGGER RELEASE HYSTERECTOMY 04/04/2017 with unilateral oophorectomy LAPAROSCOPY 02/2017 OVARY REMOVAL 04/04/2017 unilateral with hysterectomy WRIST SURGERY Left Family History: Family History Problem Relation Age of Onset Diabetes Maternal Aunt Diabetes Maternal Grandfather No known problems Son Other (see comment) Father Liver No known problems Maternal Grandmother No known problems Paternal Grandmother No known problems Paternal Grandfather Breast cancer Other Social History: Social History Socioeconomic History Marital status: Unknown Spouse name: Not on file Number of children: 1 Years of education: Not on file Highest education level: Not on file Tobacco Use Smoking status: Former Smoker Packs/day: 1.00 Years: 2.00 Pack years: 2.00 Last attempt to quit: 2005 Years since quittin.3 Smokeless tobacco: Never Used Substance and Sexual Activity Alcohol use: Not Currently Drug use: No Sexual activity: Yes Allergies: No Known Allergies Medications: Outpatient Encounter Medications as of 10/06/2018 Medication Sig Dispense Refill [DISCONTINUED] adalimumab (HUMIRA) 40 mg/0.8 mL injection (syringe) Inject 40 mg under the skin every 14 days. betamethasone dipropionate 0.05% ointment Apply bid to wet skin on affected areas prn i tching/rash Blood Glucose Monitoring Suppl (FREESTYLE LITE) KARY diclofenac (VOLTAREN) 50 mg EC tablet [DISCONTINUED] DICLOFENAC PO Take by mouth. DULoxetine (CYMBALTA) [address] capsule Take 60 mg by mouth 2 times daily. [DISCONTINUED] ergocalciferol (VITAMIN D-2) 50,000 units capsule folic acid 1 mg tablet FREESTYLE LANCETS MISC [DISCONTINUED] gabapentin (NEURONTIN) 100 mg capsule Take 300 mg by mouth nightly. gabapentin (NEURONTIN) 300 mg capsule Take 300 mg by mouth nightly. GLUCAGON EMERGENCY 1 MG injection glucose blood test strips (FREESTYLE LITE) strip hydrocortisone 2.5% cream APPLY CREAM TO WET SKIN ON FACE/EARS TWICE DAILY NEEDED FO R ITCHING AND RASH hydrOXYzine hydrochloride (ATARAX) 10 mg tablet Take 20 mg by mouth nightly. insulin aspart (NOVOLOG) 100 units/mL injection Use as directed per sliding scale; 150- 199: 2 units, 200-249: 4 units, 250-299: 6 units, 300: 8 units before meals and at bedtime insulin glargine (LANTUS) 100 units/mL injection (vial) Inject 7 Units under the skin e very morning. And 10 units at night. Insulin Syringe-Needle U-100 (RELION INSULIN SYR 0.3ML/31G) 31G X 5/16" 0.3 ML MISC Use as directed four times a day [DISCONTINUED] methotrexate 2.5 mg tablet naproxen (NAPROSYN) 500 mg tablet phenazopyridine (PYRIDIUM) 200 mg tablet Take 200 mg by mouth 3 times daily. After meal s secukinumab (COSENTYX) 150 mg/mL injection (syringe) Inject 300 mg under the skin Every 30 days. [DISCONTINUED] sulfamethoxazole-trimethoprim (BACTRIM DS) 800-160 mg per tablet traMADol (ULTRAM) 50 mg tablet triamcinolone (KENALOG) 0.1% cream APPLY TO WET SKIN ON AFFECTED AREAS TWICE DAILY N EEDED FOR ITCHING AND RASH No facility-administered encounter medications on file as of 10/06/2018. Review of Systems:Review of Systems Musculoskeletal: Positive for back pain, joint pain, myalgias and neck pain. Neurological: Positive for tingling and weakness. There were no vitals filed for this visit. Objective Physical Exam: General Appearance: Alert and Oriented to person, place, time and situation, no distress. HEENT: PERRL, conjunctiva clear, no scleral icterus, EOM's intact Neck: Spurling's test negative bilaterally Heart: Regular Rate and Rhythm Lungs: No audible wheezing or crackles. Abdomen: Non-distended Back: Symmetric Extremities: No clubbing, cyanosis or edema in all four extremities Neurological: Cranial Nerves: Grossly Intact Speech: Normal Sensory: Intact to light touch to upper extremities. Mixed numbness and hyperalgesia with monofilament testing to ulnar distribution right hand Motor: Normal 5/5 strength in both upper extremities including biceps, triceps, wrist dorsiflexion , finger abduction, and hand supervisor agency appointments. Reflexes: 2+ normal and symmetric over the biceps, triceps, and brachioradialis of both upper extremi ties. Tinel's test positive over the guyon's canal nerve at right wrist. Tinel's sign positive over median nerve to right wrist. Tinel's sign positive over ulnar nerve to right elbow. Tinel's sign mildly positive over ulnar nerve to left elbow Tinel's sign negative over median nerve to left wrists. Tinel's sign negative over guyon's canal to left wrists. Database: Cervical x-ray completed on 12/28/16 were reviewed personally by me, I concur with the resu lts as reported by the Radiologist. The imaging demonstrates: degenerative disc disease and spondylosis . Assessment 1. Right elbow pain 2. Numbness and tingling in right hand 3. Diabetes 1.5, managed as type 1 (HCC) Plan 1. The differential diagnosis for Leta Menon's symptoms included, but are not limite d to: cubital tunnel, carpal tunnel, cervical radiculopathy, brachial plexus irritation, ana maría on's canal. Leta Menon's clinical presentation is most consistent with right cubital tunnel syndrome. 2. Today we reviewed that the nerve study will hopefully help us localize the origin of sym ptoms. We discussed that if cubital tunnel syndrome is discovered, that the nerve study can help determine if the cubital tunnel syndrome is mild, moderate or severe. We discussed th at if cubital tunnel is mild the treatments tend to be conservative such as antiinflammatori es, therapy, splints and sometimes steroid injection. We discussed that moderate and severe cubital tunnel syndrome generally require surgical release. We discussed that with severe cubital tunnel syndrome there may be permanent damage to the nerve that does not resolve dori pite adequate surgical release. We reviewed that cubital tunnel if left untreated, tends t o get progressively worse over time. Today we discussed how to prepare for nerve conduction study and EMG. We discussed not wea ring lotion and bringing a short sleeve shirt to wear. We discussed the process of the test , which involves small shocks to the nerves and that the study may include pin sticks, witho ut shock into the muscles. 3. Leta Menon should complete a right elbow x-ray to evaluate for degenerative change s that could contribute to nerve impingement. 4. Leta Menon was encouraged to continue her treatment with her scraper burrer for he r psoriatic arthritis. 5. Leta Menon is diabetic, we diagnosed that this is a risk factor for developing ner ve damage or related problems. she was encouraged to continue to optimize her diabetic cont rol. 6. Leta Menon will return to the clinic for nerve conduction study and EMG to evalua te for the differential diagnosis above. Thank you for allowing me to be involved in the care of your patient. If you have any ques tions regarding the care of your patient please don't hesitate to call. Approximately 40 minutes was spent face to face with Leta Menon, over half of which w as spent formulating and discussing their medical treatment plan. I, Sanjiv Shine MD personally performed the services described in this documentation, as scribed by in my presence, Kimberly Khan RN and are both accurate and complete. Sanjiv Shine MD - 10/06/2018 Cc: Jung Mclean MD documented in this en counter Plan of Treatment + + +--------+ + + | Name | Type | Priori | Associated Diagnoses | Order Schedule | | | | ty | | | + + +--------+ + + | * [facility] [place] | Outpatient | Routin | Right elbow pain | Ordered: 10/06/2018 | | Physiatry - AMB | Referral | e | Numbness and | | | Referral | | | tingling in right | | | | | | hand | | + + +--------+ + + documented as of this encounter Results XR Elbow Right 3 [...] | Procedure Note | + + | Ever, Michael Results In - 10/06/2018 2:32 PM PDT [...] | + + | Right elbow pain - Primary Pain in joint, upper arm | + + | Numbness and tingling in right hand Disturbance of skin sensation | + + | Diabetes 1.5, managed as type 1 (HCC) | + + documented in this encounter
--- OUTSIDE RECORDS SUMMARY | ~2019-12-09 | XMS | Encounter Summary ---
Demographics + + + | Address | [address] | | | [place] [address] | + + + | Home Phone | | + + + | Preferred Language | Unknown | + + + | Marital Status | Unknown | + + + | Baptism Affiliation | Unknown | + + + | Race | Unknown | + + + | Ethnic Group | Unknown | + + + Author + + + | Author | [facility] | | | and Danielana | + + + | Organization | [facility] | [...] Team Providers + +------+ + | Care Solution Mixer Name | Role | Phone | + [...] | | n | in left | [address] | [address] | | | | | hand | [place], | [place], | | | | | Procedures | [place] [address] | [place] [address] | | | | | DOS 8/ | Phone: | Phone: | | | | | | [phone] | [phone] | | | | | | Fax: | Fax: | | | | | | [phone] | [phone] | +--------+ + + + + + Reason for Visit + + + | Reason | Comments | + + + | Numbness | left hand | + + + Evaluate & Treat (Routine) +--------+--------+ + + + + | Status | Reason | Specialty | Diagnoses / | Referred By | Referred To | | | | | Procedures | Contact | Contact | +--------+--------+ + + + + | Closed | | Physical | Diagnoses | Dionisio, | Sanjiv Shine | | | | Medicine and | Unspecified | Danish Cope, | Shilpa Floyd MD [address] | | | | Rehabilitatio | | [employer] [address] | [address] | | | | n | osteoarthrit | [place] | [place], | | | | | is, | [address], | [place] [address] | | | | | unspecified | [address] | Phone: | | | | | site | [place], | [phone] | | | | | Paresthesia | [place] [address] | Fax: | | | | | | Phone: | [phone] | | | | | | [phone] | | | | | | | Fax: | | | | | | | [phone] | | +--------+--------+ + + + + Encounter Details +--------+---------+ + + + | Date | Type | Department | Care Team | Description | +--------+---------+ + + + | 12/27/ | Office | [facility] [place] | Sanjiv Shine, | Bilateral hand pain | | 2017 | Visit | PHYSIATRY [address] | MD [address] | (Primary Dx); | | | | [address] | [place] | Numbness and | | | | [place], [place] | [address] | tingling in left | | | | [address] | | hand; Morning joint | | | | [phone] | | stiffness | +--------+---------+ + + + Social History [...] + + + | Blood Pressure | 114/69 | 12/27/2016 12:04 PM | | | | | PDT | | + + + + + | Pulse | 60 | 12/27/2016 12:04 PM | | | | | PDT | | + + + + + | Temperature | - | - | | + + + + + | Respiratory Rate | 20 | 12/27/2016 12:04 PM | | | | | PDT | | + + + + + | Oxygen Saturation | - | - | | + + + + + | Inhaled Oxygen | - | - | | | Concentration | | | | + + + + + | Weight | 56.7 kg (125 lb) | 12/27/2016 12:04 PM | | | | | PDT | | + + + + + | Height | 152.4 cm (5') | 12/27/2016 12:04 PM | | | | | PDT | | + + + + + | Body Mass Index | 24.41 | 12/27/2016 12:04 PM | | | | | PDT | | + + + + + documented in this encounter Patient Instructions Patient Instructions Allyssa Hernandez, Clinical Statistical Programmer - 12/27/2016 11:20 AM PDTX-rays have been requested. Please go to the x-ray department after your appointment to complete these x-rays. The results of your x-rays will be reviewed at your next appointment. If you r x-rays demonstrate any emergent results, the clinic will contact you. Laboratory tests have been requested. Please go to the lab to complete your laboratory demarcus ting. The results of your laboratory testing will be reviewed at your next appointment. If your labratory results demonstrate any emergent results the clinic will contact you. Please attend [...] encounter Progress Notes Sanjiv Shine MD - 12/27/2016 11:20 AM PDTFormatting of this note might be different fro m the original. CHIEF COMPLAINT: Chief Complaint Patient presents with Numbness left hand HISTORY OF PRESENT ILLNESS: Leta Menon is a 36 y.o. female being seen today in follow-up for complaints of left h and numbness. Leta Menon was last seen on 12/08/14. Previously it was recommended at she have bilateral carpal tunnel surgery. Leta Menon indicates that she had surger y in january of 2015. Leta Menon indicates that symptoms never completely went away. Leta Menon indicates that she does have some neck pain. Overall Leta Menon reports that their symptoms are worsening. She rates the pain as moderate. She describes the pain as sharp and tingling. Her symptoms worsen with bending o r putting pressure at her elbows. Her symptoms improve with nothing. Leta Menon pacheco s describe numbness of the third-fifth finger on the left. She does report weakness of the bilateral arms. Leta Menon indicates that her knuckles are constantly swollen. Talha Rivera indicates that her knuckles hurt worst in the mornings. Leta Menon indicat es that it is hard for her to do everyday tasks such as doing laundry and lifiting objects. Leta Menon indicates that she can not apply pressure without feeling numbness and tin gling. She indicates that once pressure is relieved numbness and tingling will stop. Leta Menon indicates that she completed physical therapy following trigger finger rel ease in 2016. CURRENT MEDICATIONS: Current Outpatient Prescriptions Medication Sig Dispense Refill DICLOFENAC PO Take by mouth. ibuprofen (ADVIL,MOTRIN) 600 MG tablet Take 600 mg by mouth every 6 hours as needed for Pain. Insulin Aspart (NOVOLOG SC) Inject under the skin. Sliding scale insulin glargine (LANTUS) 100 units/mL injection (vial) Inject 15 Units under the skin nightly. No current facility-administered medications for this visit. ALLERGIES: No Known Allergies REVIEW OF SYSTEMS: ROS GENERALLY: No fever, no night sweats, no anemia, no fatigue, no recent profound weight ch anges. EYES: No eye problems, no use of corrective lenses, no eye injury, no double vision, no bl indness. EARS, NOSE, AND THROAT: No changes in taste or smell, no hearing difficulty, no ringing in the ears, no ear drainage, no dizziness, no voice changes, no difficulty swallowing, no sig nificant snoring, no sleep apnea, no sinus problems, no major dental work. NEUROLOGICALLY:The patient has+ numbness/pain of arms, no numbness/pain of legs, no awake w ith numbness/pain, no weakness, no muscle aching, no coordination difficulty, no change in w alk, no head injury, no neck injury, no back injury, +pain in neck, no pain in back, no stro ke, no fainting spells, no loss of consciousness, no tremor/shaking, no seizures, no headach es, no migraine, no memory loss, no speech difficulty, no confusion and no numbness of face. PSYCHIATRIC: No depression, no sleep disorders, no anxiety, no bipolar disorder, no psycho tic episodes. CARDIOVASCULAR: No heart attacks, no heart murmur, no heart fluttering, no chest pain, no ankle swelling. LUNG DISEASE: No shortness of breath, no cough, no tuberculosis, no bloody cough, no asth ma, no emphysema/COPD. GASTROINTESTINAL: No bowel disease, no nausea or vomiting, no rectal bleeding, no constipa tion, no stool incontinence, no liver disease, no gallbladder disease, no abdominal pain, no ulcers. KIDNEY DISEASE: No urinary frequency, no painful or difficult urination, no incontinence. ENDOCRINE: + diabetes, no thyroid disease, no osteopenia or osteoporosis, no breast draina ge. SKIN: No breast lumps, no skin changes, no rashes, no itches. HEMATOLOGIC/LYMPHATIC: No enlarged lymph nodes, no easy or unusual bleeding, no personal h istory of cancer. RHEUMATOLOGIC: No joint arthritis, no rheumatoid arthritis. PHYSICAL EXAMINATION: Blood pressure 114/69, pulse 60, resp. rate 20, height 1.524 m (5'), weight 56.7 kg (125 lb ). Body mass index is 24.41 kg/m. GENERAL: The patient is well developed and well nourished. HEENT: Normocephalic and atraumatic. Normal sclerae without icterus. NECK (ANTERIOR): There is no apparent cervical lymphadenopathy or thyromegaly. PULMONARY: The patient is in no acute respiratory distress with unlabored respirations. CARDIOVASCULAR: Regular rate and rhythm. ABDOMEN: Non-distended. SKIN: Limited skin exam shows no significant rashes or lesions. NEUROLOGIC: The patient is awake, alert, and oriented. She follows simple and complex commands. Her speech is fluent. She comprehends speech well. She has no apparent deficits with short or [facility] memory. The cranial nerves appear grossly intact. Sensory exam: intact sensation to light touch in the upper est With hyperesia in all finge rs of the left hand MOTOR EXAM: (5 IS NORMAL) * Indicates pain limited MUSCLE/ MOVEMENT: RIGHT LEFT Deltoids 5 5 Biceps 5 5 Triceps 5 5 Wrist Flexion 5 5 Wrist Extension 5 5 Finger Abduction 5 4 Chain Offbearer Strength 5 5 Hip Flexion 5 5 Hip Extension 5 5 Knee Flexion 5 5 Knee Extension 5 5 Extensor Hallicus Longus 5 5 Ankle Dorsiflexion 5 5 Plantarflexion 5 5 REFLEX: RIGHT LEFT BICEPS 3+ 3+ BRACHIORADIALIS 3+ 3+ TRICEPS 2+ 3+ MUSCULOSKELETAL : Synovial thickening of the left third proximal interphalangeal (PIP) and left fifth PIP joint Synovial thickening at right second and third mcp and left third mcp Spurling test negative. Tinels test positive over ulnar nerve at left elbow, negative at right elbow DATABASE: No new imaging was available to review. ASSESSMENT: 1. Bilateral hand pain 2. Numbness and tingling in left hand 3. Morning joint stiffness PLAN: 1. Leta Menon was advised to avoid all and any pressure on the elbow. Ulnar nerve tra nsposition surgery was discussed today. We discussed that surgery may or may not provide rel ief. Ulnar nerve release was also discussed today, again we discussed that this may or may n ot help. 2. Today we reviewed that because of her history of diabetes she is at increased risk for d eveloping focal neuropathies including carpal tunnel syndrome and cubital tunnel syndrome. We discussed that she is at increased risk of peripheral neuropathy. We also discussed hat because she has diabetes her nerves may not heal as quickly or as well as a non-diabetic. 3. Today we reviewed that the nerve study will hopefully help us localize the origin of sym ptoms. We discussed that her prior nerve study in 2014 demonstrated mild left ulnar neuropa thy. We discussed that the differential diagnosis for her current symptoms includes but is not limited to: left cubital tunnel syndrome, left C8 radiculopathy, left lower brachial ple xopathy. She had bilateral carpal tunnel syndrome on prior nerve study. She has subsequent ly had bilateral carpal tunnel release in 2014. Today we discussed how to prepare for nerve conduction study and EMG. We discussed not wea ring lotion and bringing a short sleeve shirt to wear. We discussed the process of the test , which involves small shocks to the nerves and that the study may include pin sticks, witho ut shock into the muscles. 4. In regards to the neck treatment if nerve conduction study indicates cervical radiculopa thy treatments include but are not limited to ordering new imaging of the neck, physical the rapy, steroid injections and last resort surgery. 5. Cervical xray order will be placed today and sent to [facility] imaging department to e valuate for cervical spondylosis. If she has notable spondylosis in the C7-T1 region she may be at increased risk for left C8 radiculopathy. 6. Bilateral hand xray order will also be placed today to evaluate for arthritis. Leta Menon has synovial thickening on exam. She has symmetric stiffness of bilateral hand join ts. She as morning stiffness of hand joints. She may have rheumatoid arthritis. 7. Labs to evaluate for rheumatoid arthritis or any underlying conditions requested today. 8. Leta Menon will return to clinic for left upper extremity nerve conduction study a nd review labs and xray's. Leta Menon's left upper extremity numbness is most consistent with left cubital tunne l syndrome. She will return to the clinic for nerve conduction study and EMG focused on lef t upper extremity. We may do side to side comparison of ulnar nerves. If she has cubital s yndrome we will request consult with Dr. Gan, orthopedic surgeon. If cervical pathology i s suspected, cervical MRI will be requested. Thank you for allowing me to be involved in the care of your patient. If you have any ques tions regarding the care of your patient please don't hesitate to call. Approximately 45 minutes was spent face to face with Leta Menon, over half of which w as spent formulating and discussing their medical treatment plan. I, Sanjiv Shine MD personally performed the services described in this documentation, as scribed by in my presence, FRANCISCO Steele and are both accurate and complete. Sanjiv Shine MD - 12/27/2016 Cc: Danish Nichole NP documented in this en counter Plan of Treatment + +---------+--------+ + + | Name | Type | Priori | Associated Diagnoses | Order Schedule | | | | ty | | | + +---------+--------+ + + | XR Cervical Spine 4 | Imaging | Routin | Bilateral hand | Expected: | | or 5 Vws | | e | pain Morning joint | 12/27/2016, Expires: | | | | | stiffness | 12/27/2017 | + +---------+--------+ + + | CBC with | Lab | Routin | Bilateral hand | Expected: | | Differential | | e | pain Morning joint | 12/27/2016, Expires: | | | | | stiffness | 12/27/2017 | + +---------+--------+ + + | Comprehensive | Lab | Routin | Bilateral hand | Expected: | | Metabolic Panel | | e | pain Morning joint | 12/27/2016, Expires: | | | | | stiffness | 12/27/2017 | + +---------+--------+ + + | Sedimentation Rate | Lab | Routin | Bilateral hand | Expected: | | | | e | pain Morning joint | 12/27/2016, Expires: | | | | | stiffness | 12/27/2017 | + +---------+--------+ + + | MYAH Screen, Qual, | Lab | Routin | Bilateral hand | 1 Occurrences | | Reflex | | e | pain Morning joint | starting 12/27/2016 | | | | | stiffness | until 12/27/2017 | + +---------+--------+ + + | C-Reactive Protein | Lab | Routin | Bilateral hand | 1 Occurrences | | | | e | pain Morning joint | starting 12/27/2016 | | | | | stiffness | until 12/27/2017 | + +---------+--------+ + + | Rheumatoid Factor, | Lab | Routin | Bilateral hand | 1 Occurrences | | Quant | | e | pain Morning joint | starting 12/27/2016 | | | | | stiffness | until 12/27/2017 | + +---------+--------+ + + | Cyclic Citrullinated | Lab | Routin | Bilateral hand | 1 Occurrences | | Peptide Ab, IgG | | e | pain Morning joint | starting 12/27/2016 | | | | | stiffness | until 12/27/2017 | + +---------+--------+ + + | XR Hand Left 3 + Vw | Imaging | Routin | Bilateral hand | Expected: | | | | e | pain Morning joint | 12/27/2016, Expires: | | | | | stiffness | 12/27/2017 | + +---------+--------+ + + | XR Hand Right 3 + Vw | Imaging | Routin | Bilateral hand | Expected: | | | | e | pain Morning joint | 12/27/2016, Expires: | | | | | stiffness | 12/27/2017 | + +---------+--------+ + + + + +--------+ + + | Name | Type | Priori | Associated Diagnoses | Order Schedule | | | | ty | | | + + +--------+ + + | * [facility] [place] | Outpatient | Routin | Numbness and | Ordered: 12/27/2016 | | Physiatry - AMB | Referral | e | tingling in left | | | Referral | | | hand | | + + +--------+ + + documented as of this encounter Procedures + +--------+ + + + | Procedure Name | Priori | Date/Time | Associated Diagnosis | Comments | | | ty | | | | + +--------+ + + + | LABS - EXTERNAL SCAN | | 12/28/2016 | | Results for this | | | | 12:00 AM | | procedure are in the | | | | PDT | | results section. | + +--------+ + + + | LABS - EXTERNAL SCAN | | 12/28/2016 | | Results for this | | | | 12:00 AM | | procedure are in the | | | | PDT | | results section. | + +--------+ + + + documented in this encounter Results LABS - EXTERNAL SCAN (12/28/2016 12:00 AM PDT) + + + | Narrative | Performed At | + + + | Ordered by an | | | unspecified provider. | | + + + LABS - EXTERNAL SCAN (12/28/2016 12:00 AM PDT) + + + | Narrative | Performed At | + + + | Ordered by an | | | unspecified provider. | | + + + documented in this encounter Visit Diagnoses + + | Diagnosis | + + | Bilateral hand pain - Primary Pain in limb | + + | Numbness and tingling in left hand Disturbance of skin sensation | + + | Morning joint stiffness Stiffness of joint, not elsewhere classified, unspecified | | site | + + documented in this encounter"
--- OUTSIDE RECORDS SUMMARY | ~2019-12-09 | XMS | Clinical Summary ---
Demographics + + + | Address | [address] | | | [place] [address] | + + + | Home Phone | | + + + | Preferred Language | Unknown | + + + | Marital Status | Unknown | + + + | Holiness Affiliation | Unknown | + + + | Race | Unknown | + + + | Ethnic Group | Unknown | + + + Author + + + | Author | [facility] | | | and [place] | + + + | Organization | [facility] | | | and [...] Team Providers + +------+ + | Care Polymerization Oven Tender Name | Role | Phone | + +------+ + | Jung Mclean MD | PCP | | + +------+ + Allergies No Known Allergies Medications + + + +---------+------+------+-------+ | Medication | Sig | Dispensed | Refills | Star | End | Statu | | | | | | t | Date | s | | | | | | Date | | | + + + +---------+------+------+-------+ | secukinumab | Inject 300 mg under | | 0 | | | Activ | | (COSENTYX) 150 mg/mL | the skin Every 30 | | | | | e | | injection (syringe) | days. | | | | | | + + + +---------+------+------+-------+ | DULoxetine | Take 60 mg by mouth | | 0 | | | Activ | | (CYMBALTA) [address] | 2 times daily. | | | | | e | | capsule | | | | | | | + + + +---------+------+------+-------+ | folic acid 1 mg | | | 0 | 01/0 | | Activ | | tablet | | | | 3/20 | | e | | | | | | 18 | | | + + + +---------+------+------+-------+ | gabapentin | Take 300 mg by mouth | | 0 | | | Activ | | (NEURONTIN) 300 mg | nightly. | | | | | e | | capsule | | | | | | | + + + +---------+------+------+-------+ | hydrOXYzine | Take 20 mg by mouth | | 0 | | | Activ | | hydrochloride | nightly. | | | | | e | | (ATARAX) 10 mg | | | | | | | | tablet | | | | | | | + + + +---------+------+------+-------+ | FREESTYLE LANCETS | | | 0 | 12/0 | | Activ | | MISC | | | | 7/20 | | e | | | | | | 17 | | | + + + +---------+------+------+-------+ | glucose blood | | | 0 | 01/1 | | Activ | | test strips | | | | 0/20 | | e | | (FREESTYLE LITE) | | | | 18 | | | | strip | | | | | | | + + + +---------+------+------+-------+ | insulin glargine | Inject 7 Units under | | 0 | 01/1 | | Activ | | (LANTUS) 100 | the skin every | | | 0/20 | | e | | units/mL injection | morning. And 10 | | | 18 | | | | (vial) | units at night. | | | | | | + + + +---------+------+------+-------+ | insulin aspart | Use as directed per | | 0 | 01/1 | | Activ | | (NOVOLOG) 100 | sliding scale; | | | 0/20 | | e | | units/mL injection | 150-199: 2 units, | | | 18 | | | | | 200-249: 4 units, | | | | | | | | 250-299: 6 units, | | | | | | | | 300: 8 units before | | | | | | | | meals and at bedtime | | | | | | + + + +---------+------+------+-------+ | Insulin | Use as directed four | | 0 | 01/1 | | Activ | | Syringe-Needle U-100 | times a day | | | 0/20 | | e | | (RELION INSULIN SYR | | | | 18 | | | | 0.3ML/31G) 31G X | | | | | | | | 5/16" 0.3 ML MISC | | | | | | | + + + +---------+------+------+-------+ | phenazopyridine | Take 200 mg by mouth | | 0 | | | Activ | | (PYRIDIUM) 200 mg | 3 times daily. | | | | | e | | tablet | After meals | | | | | | + + + +---------+------+------+-------+ | naproxen | | | 0 | 01/1 | | Activ | | (NAPROSYN) 500 mg | | | | 0/20 | | e | | tablet | | | | 18 | | | + + + +---------+------+------+-------+ | betamethasone | Apply bid to wet | | 0 | 01/1 | | Activ | | dipropionate 0.05% | skin on affected | | | 8/20 | | e | | ointment | areas prn | | | 18 | | | | | itching/rash | | | | | | + + + +---------+------+------+-------+ | triamcinolone | APPLY TO WET SKIN ON | | 0 | 04/1 | | Activ | | (KENALOG) 0.1% cream | AFFECTED AREAS | | | 5/20 | | e | | | TWICE DAILY | | | 19 | | | | | NEEDED FOR ITCHING | | | | | | | | AND RASH | | | | | | + + + +---------+------+------+-------+ | Blood Glucose | | | 0 | 03/1 | | Activ | | Monitoring Suppl | | | | 12/27 | | e | | (FREESTYLE LITE) | | | | 19 | | | | KARY | | | | | | | + + + +---------+------+------+-------+ | diclofenac | | | 0 | 01/3 | | Activ | | (VOLTAREN) 50 mg EC | | | | /20 | | e | | tablet | | | | 19 | | | + + + +---------+------+------+-------+ | GLUCAGON EMERGENCY | | | 0 | 02/1 | | Activ | | 1 MG injection | | | | /20 | | e | | | | | | 19 | | | + + + +---------+------+------+-------+ | traMADol (ULTRAM) | | | 0 | 02/1 | | Activ | | 50 mg tablet | | | | 2/20 | | e | | | | | | 19 | | | + + + +---------+------+------+-------+ | azithromycin | | | 0 | 09/2 | | Activ | | (ZITHROMAX) 250 mg | | | | 3/20 | | e | | tablet | | | | 18 | | | + + + +---------+------+------+-------+ | cephalexin | | | 0 | 09/0 | | Activ | | (KEFLEX) 500 mg | | | | 4/20 | | e | | capsule | | | | 18 | | | + + + +---------+------+------+-------+ | ciprofloxacin | | | 0 | 09/1 | | Activ | | (CIPRO) 500 mg | | | | 7/20 | | e | | tablet | | | | 18 | | | + + + +---------+------+------+-------+ | clobetasol | | | 0 | 10/1 | | Activ | | (TEMOVATE) 0.05% | | | | 8/20 | | e | | ointment | | | | 18 | | | + + + +---------+------+------+-------+ | diclofenac | | | 0 | 08/2 | | Activ | | (CATAFLAM) 50 MG | | | | 4/20 | | e | | tablet | | | | 18 | | | + + + +---------+------+------+-------+ | diclofenac | | | 0 | 08/2 | | Activ | | (VOLTAREN) 1% GEL | | | | 0/20 | | e | | | | | | 18 | | | + + + +---------+------+------+-------+ | ENBREL 50 MG/ML | | | 0 | 08/2 | | Activ | | injection (syringe) | | | | 4/20 | | e | | | | | | 18 | | | + + + +---------+------+------+-------+ | fluconazole | | | 0 | 09/0 | | Activ | | (DIFLUCAN) 150 mg | | | | 4/20 | | e | | tablet | | | | 18 | | | + + + +---------+------+------+-------+ | fluconazole | | | 0 | 09/1 | | Activ | | (DIFLUCAN) 200 MG | | | | 8/20 | | e | | tablet | | | | 18 | | | + + + +---------+------+------+-------+ | | | | 0 | 08/2 | | Activ | | HYDROcodone-acetamin | | | | 3/20 | | e | | ophen (NORCO) 5-325 | | | | 18 | | | | mg per tablet | | | | | | | + + + +---------+------+------+-------+ | oxyCODONE | | | 0 | 09/0 | | Activ | | (ROXICODONE) 5 mg | | | | 6/20 | | e | | tablet | | | | 18 | | | + + + +---------+------+------+-------+ | | | | 0 | 09/1 | | Activ | | oxyCODONE-acetaminop | | | | 7/20 | | e | | hen (PERCOCET) 5-325 | | | | 18 | | | | mg per tablet | | | | | | | + + + +---------+------+------+-------+ | penicillin 500 mg | | | 0 | 08/2 | | Activ | | tablet | | | | 3/20 | | e | | | | | | 18 | | | + + + +---------+------+------+-------+ | hydrocortisone | APPLY CREAM TO WET | 60 g | 3 | 08/2 | | Activ | | 2.5% | SKIN ON FACE/EARS | | | 3/20 | | e | | creamIndications: | TWICE DAILY | | | 19 | | | | Psoriasis vulgaris | NEEDED FOR ITCHING | | | | | | | | AND RASH | | | | | | + + + +---------+------+------+-------+ | ergocalciferol | Take 1 capsule by | 5 | 5 | 10/0 | | Activ | | (VITAMIN D-2) 50,000 | mouth Once a week. | capsule | | 2/20 | | e | | units capsule | | | | 19 | | | + + + +---------+------+------+-------+ | cholecalciferol | Take 1 capsule by | 4 | 5 | 12/1 | | Activ | | (VITAMIN D-3) 1.25 | mouth Once a week. | capsule | | 6/20 | | e | | mg (50,000 units) | | | | 19 | | | | capsuleIndications: | | | | | | | | Telogen effluvium | | | | | | | + + + +---------+------+------+-------+ | ferrous sulfate | Take 1 tablet by | 60 | 5 | 05/10 | | Activ | | 325 mg tablet | mouth 2 times daily | tablet | | 11/27 | | e | | | (with breakfast & | | | 19 | | | | | dinner). | | | | | | + + + +---------+------+------+-------+ Active Problems + + + | Problem | Noted Date | + + + | Diabetes 1.5, managed as type 1 | | + + + Immunizations + + + + | Name | Administration Dates | Next Due | + + + + | DTAP, UNSPECIFIED | 06/08/1998, 03/09/1984, 1982, | | | FORMULATION | 1982, 1982 | | + + + + | Hep B (PED/ADOL) 3 | 05/20/1998 | | | DOSE | | | + + + + | INFLUENZA PF | 03/19/2018 | | | QUAD(PED/ADOL/ADULT) | | | | ,PSKT or VIAL | | | + + + + | INFLUENZA PF | 05/21/2015 | | | TRIVALENT(PED/ADOL/A | | | | DULT), PSKT | | | + + + + | INFLUENZA, | 03/04/2008, 03/26/2007, 03/27/2006, | | | UNSPECIFIED | 05/24/2004, 03/30/2003 | | | FORMULATION | | | + + + + | MMR, 2 DOSE | 05/20/1998, 08/07/1983 | | | (PED/ADULT) | | | + + + + | PNEUMOCOCCAL | 05/14/2005 | | | POLYSACCHARIDE | | | | 23-VALENT (PPSV23) | | | + + + + | POLIO, UNSPECIFIED | 1982, 1982 | | | FORMULATION | | | + + + + | PPD Test | 07/02/2017 | | + + + + | TD PF (2 LF TETANUS) | 05/20/1998 | | | (ADOL/ADULT) | | | + + + + | TDAP, (ADOL/ADULT) | 01/24/2006 | | + + + + Family History + + + + + | Medical History | Relation | Name | Comments | + + + + + | Other (see comment) | Father | | Liver | + + + + + | Diabetes | Maternal | | | | | Aunt | | | + + + + + | Diabetes | Maternal | | | | | Grandfath | | | | | er | | | + + + + + | No known problems | Maternal | | | | | Grandmoth | | | | | er | | | + + + + + | Breast cancer | Other | Unknown | | | | | relation | | | | | ship | | + + + + + | No known problems | Paternal | | | | | Grandfath | | | | | er | | | + + + + + | No known problems | Paternal | | | | | Grandmoth | | | | | er | | | + + + + + | No known problems | Son | | | + + + + + + + + + + | Relation | Name | Status | Comments | + + + + + | Father | | | | + + + + + | Maternal Aunt | | | | + + + + + | Maternal Grandfather | | | | + + + + + | Maternal Grandmother | | | | + + + + + | Mother | | Alive | | + + + + + | Other | Unknown | | | | | relations | | | | | hip | | | + + + + + | Paternal Grandfather | | | | + + + + + | Paternal Grandmother | | | | + + + + + | Son | | Alive | | + + + + + Social History + [...] on file | | + + + Last Filed Vital Signs + + + + + | Vital Sign | Reading | Time Taken | Comments | + + + + + | Blood Pressure | 107/61 | 10/08/2018 2:23 PM | | | | | PDT | | + + + + + | Pulse | 81 | [...] | Height | 152.4 cm (5') | 10/10/2017 1:06 PM | | | | | PDT | | + + + + + | Body Mass Index | 25.39 | 10/10/2017 1:06 PM | | | | | PDT | | + + + + + Plan of Treatment + + + + + | Health Maintenance | Due Date | Last | Comments | | | | Done | | + + + + + | Diabetic Eye Exam | | | | | | 0 | | | + + + + + | Diabetic Foot Exam | | | | | | 0 | | | + + + + + | Hemoglobin A1c | | | | | Screening | 0 | | | + + + + + | Cervical Cancer | | | | | Screening (Pap) | 2 | | | + + + + + | Microalbumin | | | | | Screening | 5 | | | + + + + + | Vaccine: | | 01/25/20 | | | Dtap/Tdap/Td (8 - | 6 | 06, | | | Td) | | 06/08/19 | | | | | 98, | | | | | 05/20/19 | | | | | 98, | | | | | Addition | | | | | al | | | | | history | | | | | exists | | + + + + + | Vaccine: Influenza | | 03/19/20 | | | (Season Ended) | 0 | 18, | | | | | 05/21/20 | | | | | 15, | | | | | 03/04/20 | | | | | 08, | | | | | Addition | | | | | al | | | | | history | | | | | exists | | + + + + + | Vaccine: | Completed | 05/14/20 | | | Pneumococcal 19-64 | | 05 | | + + + + + Results Not on filefrom Last 3 Months Insurance + +--------+ +--------+ +---------+--------+ | Payer | Benefi | Subscriber | Effect | Phone | Address | Type | | | t Plan | ID | lillian | | | | | | / | | Dates | | | | | | Group | | | | | | + +--------+ +--------+ +---------+--------+ | [employer] | [employer] | [id number] | 09/14/19 | [phone] | | Medica | | MEDICAID HMO | HEALTH | | 15-Pre | 1 | | id | | | MDCD | | sent | | | | | | [place] | | | | | | + +--------+ +--------+ +---------+--------+ | [employer] | [employer] | [id number] | | [phone] | | Medica | | MEDICAID HMO | HEALTH | | 019-Pr | 1 | | id | | | MDCD | | esent | | | | | | [place] | | | | | | + +--------+ +--------+ +---------+--------+ + +--------+ +--------+-------+ + | Guarantor Name | Accoun | Relation to | Date | Phone | Billing Address | | | t Type | Patient | of | | | | | | | | | | + +--------+ +--------+-------+ + | Leta Menon | Person | Self [birth year] | [address] | | | al/Fam | | 1979 | | [place], [place] | | | mario | | | | [id number] | + +--------+ +--------+-------+ + | Leta Menon | Person | Self [birth year] | [address] | | | al/Fam | | 1979 | | [place], [place] | | | mar[place] | | | | [id number] | + +--------+ +--------+-------+ + Advance Directives + + + + + | Type | Date Recorded | Patient | Explanation | | | | Research Laboratory Manager | | + + + + + | Power of | | | | | Crate Icer | | | | + + + + + | Advance | | | | | Directive | | | | + + + + +
--- OUTSIDE RECORDS SUMMARY | ~2019-12-09 | XMS | Encounter Summary ---
Demographics + + + | Address | [address] | | | [place] [address] | + + + | Home Phone | | + + + | Preferred Language | Unknown | + + + | Marital Status | Unknown | + + + | Mosque Affiliation | Unknown | + + + | Race | Unknown | + + + | Ethnic Group | Unknown | + + + Author + + + | Author | Formerly [facility] | | | and Danielana | + + + | Organization | [facility] | | | and [place] [...] Team Providers + +------+ + | Care Alpine Patroller Name | Role | Phone | + [...] both hands | [address] | | | | n | Hand | [address] | [place], | | | | | weakness | [place], | [place] [address] | | | | | Procedures | [place] [address] | Phone: | | | | | DOS 12/08/14 | Phone: | [phone] | | | | | | [phone] | Fax: | | | | | | Fax: | [phone] | | | | | | [phone] | | +--------+ + + + + + Reason for Visit + + + | Reason | Comments | + + + | Numbness | BUE | + + + | Hand Pain | | + + + Evaluate & Treat (Routine) +--------+--------+ + + + + | Status | Reason | Specialty | Diagnoses / | Referred By | Referred To | | | | | Procedures | Contact | Contact | +--------+--------+ + + + + | Closed | | Physical | Diagnoses | Dionisio, | Sanjiv Shine | | | | Medicine and | | Danish Cope, | Shilpa Floyd MD [address] | | | | Rehabilitatio | Polyneuropat | [employer] [address] | | | | n | hy in | [place] | [place], | | | | | diabetes([address] | [place], | [place] [address] | | | | | .2) | [address] | Phone: | | | | | Diabetes | [place], | [phone] | | | | | (FORMERLY [facility]) | [place] [address] | Fax: | | | | | | Phone: | [phone] | | | | | | [phone] | | | | | | | Fax: | | | | | | | [phone] | | +--------+--------+ + + + + Encounter Details +--------+---------+ + + + | Date | Type | Department | Care Team | Description | +--------+---------+ + + + | 11/09/ | Office | [facility] [place] | Sanjiv Shine, | Numbness in both | | 2015 | Visit | PHYSIATRY [address] | MD [address] | hands (Primary Dx); | | | | [address] | [place], [place] | Hand weakness; | | | | [place], [place] | [address] | Trigger ring finger | | | | [id number] | | of left hand; | | | | [phone] | | Trigger ring finger | | | | | | of right hand; | | | | | | History of diabetes | | | | | | mellitus, type I | +--------+---------+ + + + Social History [...] + + + | Blood Pressure | 136/82 | 11/09/2014 4:20 PM | | | | | PDT | | + + + + + | Pulse | 95 | 11/09/2014 4:20 PM | | | | | PDT | | + + + + + | Temperature | - | - | | + + + + + | Respiratory Rate | 18 | 11/09/2014 4:20 PM | | | | | PDT | | + + + + + | Oxygen Saturation | - | - | | + + + + + | Inhaled Oxygen | - | - | | | Concentration | | | | + + + + + | Weight | 59 kg (130 lb) | 11/09/2014 4:20 PM | | | | | PDT | | + + + + + | Height | 152.4 cm (5') | 11/09/2014 4:20 PM | | | | | PDT | | + + + + + | Body Mass Index | 25.39 | 11/09/2014 4:20 PM | | | | | PDT | | + + + + + documented in this encounter Patient Instructions Patient Instructions Sanjiv Shine MD - 11/09/2014 5:16 PM PDTPlease attend your schedu led nerve conduction study and EMG appointment. Nerve conduction studies and EMG require a great deal of time to complete. If you will be unable to make your appointment please contact the clinic at least one full business day bobo or to your appointment . Missed appoints without cancellation will only be re scheduled once. Prior to your appointment wash the skin [...] encounter Progress Notes Sanjiv Shine MD - 11/09/2014 4:55 PM PDTFormatting of this note might be different fro m the original. Subjective: Consult Requested by: Danish Nichole NP Date of Service: 11/09/2014 Patient ID: Leta Menon is a right hand dominant 34 y.o. female without neck pain, wit h bilateral hand numbness and weakness. HPI Leta Menon reports that she has had bilateral hand numbness for at least 10 years if not longer. She reports that the symptoms are worse in the right hand compared to the left hand. She reports that her hand numbness is intermittent. She reports that she was diagnos ed with diabetes around 20 years ago. She denies a history of thyroid disease. She denies neck pain. She denies pain, numbness, weakness or tingling in either lower extremity. She reports that she has pain in her fingers but not her wrists. She reports that her fourth fi ngers lock or trigger bilaterally. She reports that hand numbness is intermittent, but occu rs daily. She reports that her hand numbness is worse at night and wakes her from sleep at night. She reports that hand numbness is brought on by any activity that uses her hands. S he reports that mowing the lawn will make her hands numb. She reports that gripping a steer ing wheel and driving a car can make her hands numb. She reports that numbness is strongest over the second, third and fourth fingers bilaterally. She reports having a different kind of pain in her left fifth finger that may be unrelated to her hand numbness. She reports w eakness in both hands which she describes as loss of utility agent strength. She reports difficulty opening jars. She reports that has dropped objects on occasion. She denies taking any bloo d thinning medications such as Coumadin or heparin. She denies having implanted electronic device such as a pacemaker. She reports that she may have hand nerve study years ago, but s he is not sure who did her nerve study, here in [place], [place]. Past Medical History Diagnosis Date Diabetes 1.5, managed as type 1 (HCC) Past Surgical History Procedure Laterality Date Ectopic surgery 2001 Tubal ligation - 2014 Family History Problem Relation Age of Onset Diabetes Maternal Aunt Diabetes Maternal Grandfather History Social History Marital Status: Unknown Spouse Name: N/A Number of Children: N/A Years of Education: N/A Social History Main Topics Smoking status: Former Smoker -- 1.00 packs/day for 2 years Smokeless tobacco: None Alcohol Use: Yes Drug Use: No Sexual Activity: Yes Social History Narrative Current Outpatient Prescriptions Medication Sig Dispense Refill ibuprofen (ADVIL,MOTRIN) 600 MG tablet Take 600 mg by mouth every 6 hours as needed for Pain. Insulin Aspart (NOVOLOG SC) Inject under the skin. Sliding scale insulin glargine (LANTUS) 100 units/mL injection (vial) Inject 15 Units under the skin nightly. No current facility-administered medications for this visit. No Known Allergies Review of Systems Constitutional: Negative for fever, chills and unexpected weight change. HENT: Negative for trouble swallowing. Eyes: Negative for pain. Respiratory: Negative for cough and shortness of breath. Cardiovascular: Negative for chest pain, palpitations and leg swelling. Gastrointestinal: Negative for nausea, vomiting, abdominal pain, diarrhea and constipation. Genitourinary: Negative for dysuria. Skin: Negative for rash and wound. Neurological: Positive for weakness and numbness. Hematological: Negative for adenopathy. Psychiatric/Behavioral: Negative for suicidal ideas. Objective: Physical Exam BP 136/82 | Pulse 95 | Resp 18 | Ht 1.524 m (5') | Wt 58.968 kg (130 lb) | BMI 25.39 kg/m2 GEN: Alert & Oriented x 3, no acute distress HEENT: Extraocular muscles intact, pupils equal and reactive to light and accomodation, scl era clear NECK: Normal range of motion, no tenderness to palpation, no tenderness over greater occip ital nerves, muscle tone normal, Spurling's test negative bilaterally HEART: Regular rate and rhythm, no murmurs, no gallops LUNGS: Clear to auscultation bilaterally, no wheezing, no crackles ABDOMIN: Non tender, non distended, positive for bowel sounds BACK: Symmetric, no tenderness to palpation, normal muscle tone, seated straight leg raise negative bilaterally, Te's test negative bilaterally EXT: No clubbing, cyanosis or edema in all four extremities. There was swelling over the volar wrists bilaterally. NEURO: Alert and oriented, cranial nerves intact, speech normal, concentration intact, kristy ry intact. Sensory intact to light touch and pin prick in all four extremities. Subjective decreased sensation over the second, third, and fourth fingers bilaterally. Strength is no rmal 5/5 in both upper extremities with biceps, triceps, wrist dorsiflexion, finger abductio n bilaterally. She had 4/5 hand utility agent bilaterally. Strength is normal 5/5 in both lower ext remities with hip flexion, knee flexion, knee extension, ankle dorsiflexion, ankle plantar f lexion and EHL. Deep tendon reflexes are 2+ in both upper extremities over the biceps, tric eps, and brachioradialis bilaterally. Deep tendon reflexes are 2+ in both lower extremities over the patella and Achilles. Babinski's was down going bilaterally. There was no clonus at either ankle. Tinel's test was positive over the median nerves at both wrists. Phalen' s test was positive bilaterally. Assessment: 1. Numbness in both hands 2. Hand weakness 3. Trigger ring finger of left hand 4. Trigger ring finger of right hand 5. History of diabetes mellitus, type I Plan: Leta Menon's symptoms are most consistent with carpal tunnel syndrome. She is at inc reased risk for carpal tunnel syndrome because of her history of diabetes. She has bilatera l trigger ring fingers. She was advised that steroid injection may help, but also surgery c an be used to treat trigger fingers. She was instructed that surgeons may do carpal tunnel release and trigger finger surgery at the same time. The differential diagnosis for her symptoms includes but is not limited to: cervical spinal stenosis, cervical radiculopathy, brachial plexopathy, pronator teres syndrome, and carpal tunnel syndrome. Today we reviewed that the nerve study will hopefully help us localize the origin of sympto ms. We discussed that if carpal tunnel syndrome is discovered, that the nerve study can hel p determine if the carpal tunnel syndrome is mild, moderate or severe. We discussed that if carpal tunnel is mild the treatments tend to be conservative such as antiinflammatories, crystal nd therapy, wrist splints and sometimes steroid injection. We discussed that moderate and s evere carpal tunnel syndrome generally require surgical release. We discussed that with sev ere carpal tunnel syndrome there may be permanent damage to the nerve that does not resolve despite adequate surgical release. We discussed natural progress of carpal tunnel syndrome. We reviewed that carpal tunnel if left untreated, tends to get progressively worse over ti me. We discussed that if severe carpal tunnel syndrome is left untreated that the amount of permanent nerve damage can get worse leading to worse disability. Today we discussed how to prepare for nerve conduction study and EMG. We discussed not wea ring lotion and bringing a short sleeve shirt to wear. We discussed the process of the test , which involves small shocks to the nerves and that the study may include pin sticks, witho ut shock into the muscles. Thank you for allowing me to be involved in the care of your patient. If you have any ques tions regarding the care of your patient please don't hesitate to call. Approximately 45 minutes was spent face to face with Leta Menon, over half of which w as spent formulating and discussing their medical treatment plan. Errors may exist within this dictation. It wad dictated, but not proofread using "[employer]" dictation software. Sanjiv Shine MD (Jr.) rown, Kimberly Floyd RN - 11/09/2014 4:24 PM PDTPatient states numbness and tingling to BUE x 10 years.Patient is r ight hand dominate., states weakness and intermittent pain to BUE. documented in this encounter Plan of Treatment + + +--------+ + + | Name | Type | Priori | Associated Diagnoses | Order Schedule | | | | ty | | | + + +--------+ + + | Ambulatory referral | Outpatient | Routin | Numbness in both | Ordered: 11/09/2014 | | to Physical Medicine | Referral | e | hands Hand weakness | | | Rehab | | | | | + + +--------+ + + documented as of this encounter Visit Diagnoses + + | Diagnosis | + + | Numbness in both hands - Primary Disturbance of skin sensation | + + | Hand weakness Muscle weakness (generalized) | + + | Trigger ring finger of left hand Trigger finger (acquired) | + + | Trigger ring finger of right hand Trigger finger (acquired) | + + | History of diabetes mellitus, type I Personal history of other endocrine, metabolic, | | and immunity disorders | + + documented in this encounter
[~2019-12-09 08:45] MED LIST changes: +PERCOCET 7.5-31 EACH PO
--- OUTSIDE RECORDS SUMMARY | 2019-12-09 08:48 | XMS ---
PreManage Notification: SOFIYA FERRELL Security Systems Consultant Events No recent Security Events currently on file CRITERIA MET - [facility] There are no care providers on record at this time. [facility] has no Care Guidelines for this patient. Kari VISIT COUNT (12 MO.) 1 BLANCA Patel TOTAL 1 NOTE: Visits indicate total known visits. ED/C VISIT TRACKING (12 MO.) 12/09/2019 08:45 BLANCA Acosta [place] TYPE: Emergency COMPLAINT: - BACK PAIN INPATIENT VISIT TRACKING (12 MO.) No inpatient visits to display in this time frame [email or web address]
[2019-12-09] MEDS ORDERED: PHENAZOPYRIDIN200 MG PO (09:05)
[2019-12-09] MEDS ORDERED: CYCLOBENZAPRINE10 MG PO (09:06)
[2019-12-09] MEDS ORDERED: OXYCODON-ACETA1 EAC2 PO (09:06)
[2019-12-09] MEDS ORDERED: CIPROFLOXACIN500 MG PO (09:06)
== END 2019-12-09 09:29 | disposition home or self-care (01) ==
LOC: ED 08:45
DX: M54.5 Low back pain (principal); E10.9 Type 1 diabetes mellitus without complications; Z88.5 Allergy status to narcotic agent; Z79.899 Other long term (current) drug therapy
CPT/HCPCS: 99283

== ENCOUNTER 2020-05-02 05:50 | Day surgery (SDC) | payer OTHER ==
[~2020-05-02] VITALS: Ht 152.4 cm; Wt 59.0 kg
[~2020-05-02 05:50] MED LIST changes: +CIPROFLOXACIN500 MG PO; +CYCLOBENZAPRINE10 MG PO; +OXYCODON-ACETA1 EAC2 PO; +PHENAZOPYRIDIN200 MG PO; +VITAMIN D3125 MC2 PO
--- NOTE | 2020-05-02 08:37 | NUR ---
05/02/20 0837 Marlin Smiley 0839 PT ARRIVED TO PACU ON 6L VIA MASK AND ORAL AIRWAY IN [place], RESP EVEN AND UNLABORED.
--- NOTE | 2020-05-02 08:54 | NUR ---
PT IS BACK TO FROM PACU. SHE IS REPORTING 5/10 PAIN, STATING IT IS A BURNING SENSATION. CALL LIGHT WITHIN REACH. WATER ON BEDSIDE TABLE. REQUESTING CRACKERS-SALTINES. NO ADDITIONAL NEEDS AT THIS TIME.
--- NOTE | 2020-05-02 09:15 | NUR ---
PT GIVEN MORE WATER, AZO, AND PAIN PILLS. TOLERATING CRACKERS AND WATER.
[2020-05-02] MEDS ORDERED: PERCOCET 7.5-31 EACH PO (09:20)
[2020-05-02] MEDS ORDERED: ONDANSETRON HCL4 MG PO (09:21)
[2020-05-02] MEDS ORDERED: CIPRO500 MG PO (09:21)
--- NOTE | 2020-05-02 09:58 | NUR ---
PT REPORTS IMPROVEMENT IN PAIN. CALL LIGHT WITHIN REACH. SO AT THE BEDSIDE. NO ADDITIONAL NEEDS AT THIS TIME. REPORTS WILL NEED TO GET UP AND USE THE BATHROOM SOON.
--- NOTE | 2020-05-02 10:08 | OR ---
[facility] [address], [place] [address] Signed DATE OF OPERATION: 05/02/2020 SURGEON: Carmela Torres MD PREOPERATIVE DIAGNOSIS: Interstitial cystitis. POSTOPERATIVE DIAGNOSIS: Interstitial cystitis. NAMES OF PROCEDURES: Diagnostic cystoscopy with hydrodistention. ANESTHESIA: General. ESTIMATED BLOOD LOSS: None. COMPLICATIONS: None. SPECIMENS: None. DRAINS: None. INDICATIONS FOR PROCEDURE: Sofiya is a very pleasant 40-year-old female, who is very well known to me. She has a history of interstitial cystitis for which she undergoes a routine q. 4-5 month cystoscopy with hydrodistention. Her bladder has mostly remained stable; however, she has noticed increasing issues with dysuria in the recent past. She is due for another routine hydrodistention, and she presents today to undergo the aforementioned procedure. OPERATIVE FINDINGS: 1. On cystoscopy, there was no evidence of any suspicious masses, lesions, or stones. Bilateral ureteral orifices are in their normal anatomic location effluxing clear urine. 2. The patient's bladder was distended for a total of 8.5 minutes. The patient's bladder capacity was measured at 1350 mL. Once the patient's bladder was drained at the Electronically Signed By: CARMELA TORRES MD 05/02/20 1008 PATIENT NAME: SOFIYA FERRELL OPERATIVE REPORT DATE OF : 84 REPORT #: [id number] PHYSICIAN: CARMELA TORRES MD PCP: JAVIER MARTIN REPORT IS CONFIDENTIAL AND NOT TO BE RELEASED WITHOUT AUTHORIZATION [facility] [address], [place] [address] Signed end of the distention, there was no evidence of any Hunner's ulcers or lesions or any petechiae for that matter. DESCRIPTION OF PROCEDURE: After informed consent was obtained, the patient was taken back to the operating room. She was transferred from the [facility] to the operating room table, where general anesthesia was induced. She was placed in the dorsal lithotomy position and her genitalia prepped and draped in a standard sterile fashion. Using a 30-degree lens on a 22.5-Monegasque introducer, rigid cystoscope was inserted through the urethra into her bladder under direct visualization. Panendoscopic views of bladder were then obtained. Please see above findings. The patient's bladder was completely drained initially and then filled again. Once I noted approximate peak capacity, the hydrodistention began and was maintained for 8.5 minutes. All the while I slowly increased the volume to the point at which that I did notice some leakage of fluid once I reached max bladder capacity. After the 8.5 minutes had elapsed, the patient's bladder was then drained for a total of 1350 mL. Repeat cystoscopy revealed no evidence of any Hunner's lesions or ulcers. In fact, the mucosa remained relatively normal with very minimal blood vessel dilation. The procedure was then terminated. The patient tolerated the procedure well which was performed without any complication. She will now be transferred to the postanesthesia care unit in stable condition. DISPOSITION: I discussed the details of today's procedure with the patient and her and answered all of her questions. She will be sent home today with Cipro 500 mg p.o. b.i.d. for a total of 7 days, along with Percocet 7.5/325 dispense number #30 as needed for pain. She was also given Zofran as needed for nausea. She will be scheduled to return to clinic in 2-3 months for her postoperative evaluation. At that time, we will plan for her next hydrodistention. MD LYNDA Isaac/MODL /[id number] Copies: Electronically Signed By: CARMELA TORRES MD 05/02/20 1008 PATIENT NAME: SOFIYA FERRELL OPERATIVE REPORT DATE OF : 84 REPORT #: [id number] PHYSICIAN: CARMELA TORRES MD PCP: JAVIER MARTIN REPORT IS CONFIDENTIAL AND NOT TO BE RELEASED WITHOUT AUTHORIZATION [facility] [address] [place] [address] [place] [address] Signed ~ Electronically Signed By: CARMELA TORRES MD 05/02/20 1008 PATIENT NAME: SOFIYA FERRELL OPERATIVE REPORT DATE OF : 84 REPORT #: [id number] PHYSICIAN: CARMELA TORRES MD PCP: JAVIER MARTIN REPORT IS CONFIDENTIAL AND NOT TO BE RELEASED WITHOUT AUTHORIZATION
--- NOTE | 2020-05-02 10:20 | NUR ---
STEADY ON FEET WITH ONE PERSON STAND BY ASSIST FOR AMBULATION TO BR. REPORTS 1-2/10 PAIN. DENIES NAUSEA. VOIDS 900ML BRIGHT YELLOW DYED URINE. RETURNS TO BED AND REQUESTS TO GET DRESSED. IV REMOVED AND PT BEGINS DRESSING WHILE SITTING DOWN.
--- NOTE | 2020-05-02 13:03 | NUR ---
LE 1030: PT IS GIVEN VERBAL DC INSTRUCTIONS WITH SO PRESENT. THEY BOTH VERBALIZE UNDERSTANDING. NO QUESTIONS AT THIS TIME. PT IS TAKEN TO VEHICLE VIA WC.
== END 2020-05-02 10:35 | disposition home or self-care (01) ==
LOC: OPS 05:50 → DS 05:50 → OPS 06:45
PROVIDERS: ATTEND Urology
PROC: 0T7B8ZZ Dilation of Bladder, Via Natural or Artificial Opening Endoscopic (ICD-10-PCS; principal; 2020-05-02 06:45)
DX: N30.10 Interstitial cystitis (chronic) without hematuria (principal); E10.9 Type 1 diabetes mellitus without complications; M19.90 Unspecified osteoarthritis, unspecified site; Z79.4 Long term (current) use of insulin; Z79.899 Other long term (current) drug therapy; Z88.5 Allergy status to narcotic agent
CPT/HCPCS: 00910; J0690; J1885; J2001; J2250; J2704; J7121

== ENCOUNTER 2020-08-29 05:50 | Day surgery (SDC) | payer OTHER ==
[~2020-08-29] VITALS: Ht 152.4 cm; Wt 59.1 kg
[~2020-08-29 05:50] MED LIST changes: +IBU800 MG PO; +ONDANSETRON HCL4 MG PO
--- NOTE | 2020-08-29 08:23 | NUR ---
08/29/20 0823 Jacqueline Michel 0812- PT ARRIVES TO PACU RESTLESS AND SQUIRMING AROUND IN THE BED. PT DOES NOT FOLLOW COMMANDS AND REMAINS HAVING AN OPA SHE IS BITING DOWN ON THE OPA. PT UPDATED THAT SHE IS IN THE RECOVERY ROOM AND SURGERY IS OVER. PT IS NOT ABLE TO KNOWLEDGE THIS INFORMATION AND CONTINUES TO BE RESTLESS IN THE BED. OXYGEN SAT HIGH 90'S TO 100% ON 6L VIA MASK. 0814- PT REMAINS RESTLESS, OPA IS ABLE TO BE REMOVED BY PERICO BECKHAM CRNA. OXYGEN MASK REPLACED AT 6L VIA MASK. 0818- PT IS CALMING AND ABLE TO KNOWLEGDE INFORMATION NOW. PT WANTS TO TURN ON HER SIDE. PT ASSISTED TO HER RIGHT SIDE. PT IS CALM AT THIS TIME.
--- NOTE | 2020-08-29 08:59 | NUR ---
PT IS BACK TO DS FROM PACU. SHE IS BACK TO HER BASELINE. BOYFRIEND IS AT THE BEDSIDE. SHE HAS NO C/O'S PAIN OR NAUSEA. WATER ON BEDSIDE TABLE. SHE REPORTS THAT SHE IS READY TO GO HOME, DC CRITERIA IS REVIEWED; SHE VERBALIZES UNDERSTANDING. NO ADDITIONAL NEEDS AT THIS TIME.
--- NOTE | 2020-08-29 09:23 | NUR ---
PT'S CBG RECHECK FOR A LEVEL OF 182
--- NOTE | 2020-08-29 09:48 | NUR ---
PT IS UP OOB WITH STANDBY ASSIST TO THE RESTROOM. SHE IS ABLE TO VOID WITH NO ISSUES. SHE AMBULATES HERSELF BACK TO BED. SHE INDICATES THAT SHE WOULD LIKE TO GO HOME. SHE IS EDUCATED ON HOW TO BEST DRESS HERSELF. AND TO OPEN HER CURTAIN WHEN READY.
--- NOTE | 2020-08-29 10:10 | NUR ---
PT IS GIVEN VERBAL DC INSTRUCTIONS WITH BOYFRIEND PRESENT. THEY BOTH VERBALIZE UNDERSTANDING. SHE IS TAKEN TO CAR VIA WC, SHE IS ABLE TO TRANSFER HERSELF FROM WC TO CAR.
--- NOTE | 2020-08-29 10:23 | NUR ---
PT ASKS ABOUT AN ABX, SHE IS USUALLY PRESCRIBED ONE AFTER HER PROCEDURES. DR. TORRES IS ASKED, SHE REQUESTS TO HAVE CIPRO 250MG PO BID X7 DAYS CALLED IN. THIS IS CALLED IN TO [facility]. PT IS CALLED AND NOTIFIED.
--- NOTE | 2020-08-29 12:03 | OR ---
[facility] [address] [place], [place] [address] Signed DATE OF OPERATION: 08/29/2020 SURGEON: Carmela Torres MD PREOPERATIVE DIAGNOSIS: Interstitial cystitis. POSTOPERATIVE DIAGNOSIS: Interstitial cystitis. NAME OF PROCEDURE: Diagnostic cystoscopy with hydrodistention. ANESTHESIA: General. ESTIMATED BLOOD LOSS: None. COMPLICATIONS: None. SPECIMENS: None. DRAINS: None. INDICATIONS FOR PROCEDURE: Sofiya is a very pleasant 40-year-old female, who is well known to me. She has a history of undgybjc-eq-fsbego interstitial cystitis that has been under adequate control with serial hydrodistentions. She presents today to undergo another routine cystoscopy with hydrodistention. She is requesting prescriptions for belladonna and opioid suppositories and oxycodone for postoperative pain control today. OPERATIVE FINDINGS: 1. On cystoscopy, there was no evidence of any suspicious masses, lesions, or stones. Bilateral ureteral orifices are in their normal anatomic location and effluxing clear urine. 2. The patient's bladder was distended for a total of 8 minutes and was filled to a Electronically Signed By: CARMELA TORRES MD 08/29/20 1203 PATIENT NAME: SOFIYA FERRELL OPERATIVE REPORT DATE OF : 84 REPORT #: [id number] PHYSICIAN: CARMELA TORRES MD PCP: JAVIER MARTIN REPORT IS CONFIDENTIAL AND NOT TO BE RELEASED WITHOUT AUTHORIZATION [facility] [address] [place], [place] [address] Signed capacity of 1250 mL. At the end of the distention, there was no evidence of any Hunner's ulcers. The only obvious evidence of distention was the presence of diffuse superficial blood vessels, which is typical after distention. DESCRIPTION OF PROCEDURE: After informed consent was obtained, the patient was taken back to the operating room. She was transferred from the [facility] to the operating room table, where general anesthesia was induced. She was placed in the dorsal lithotomy position and the genitalia were prepped and draped in a standard sterile fashion. Using a 30-degree lens on a 22.5-Uzbek introducer, rigid cystoscope was inserted through the urethra and into her bladder under direct visualization. Panendoscopic views of bladder were then obtained. Please see above findings. After initially draining the patient's bladder of any remaining urine, her bladder was filled slowly over an 8-minute period to the point of capacity of 1250 mL. Of note, she was distended at that capacity for at least 3 minutes. Overall, her bladder was distended at or above a 1000 mL for a total of 8 minutes. After 8 minutes of time had passed, the patient's bladder was then completely emptied and the capacity measured. Repeat diagnostic cystoscopy was then performed. Please see above findings. The patient's bladder was then drained again and the procedure was terminated. The patient tolerated the procedure well without any complication. She will now be transferred to the postanesthesia care unit in stable condition. DISPOSITION: I discussed the details of today's procedure with the patient's boyfriend and answered all of his questions. She will be discharged to home later today once she fully awakes from general anesthetic. She will be sent home today with oxycodone 7.5 mg p.o. q.6 hours p.r.n. pain, dispense #35, along with B and O suppository 16., dispense #12. She will be scheduled to return to clinic in 2 to 3 months for her routine postoperative evaluation. Carmela Torres MD AR/MODL /[id number] Electronically Signed By: CARMELA TORRES MD 08/29/20 1203 PATIENT NAME: SOFIYA FERRELL OPERATIVE REPORT DATE OF : 84 REPORT #: [id number] PHYSICIAN: CARMELA TORRES MD PCP: JAVIER MARTIN REPORT IS CONFIDENTIAL AND NOT TO BE RELEASED WITHOUT AUTHORIZATION [facility] [address] [place] [address] [place], [place] [address] Signed Copies: ~ Electronically Signed By: CARMELA TORRES MD 08/29/20 1203 PATIENT NAME: SOFIYA FERRELL OPERATIVE REPORT DATE OF : 84 REPORT #: [id number] PHYSICIAN: CARMELA TORRES MD PCP: JAVIER MARTIN REPORT IS CONFIDENTIAL AND NOT TO BE RELEASED WITHOUT AUTHORIZATION
== END 2020-08-29 10:00 | disposition home or self-care (01) ==
LOC: OPS 05:50 → DS 05:50 → OPS 06:45 → DS 06:45 → OPS 10:00
PROVIDERS: ATTEND Urology
PROC: 0T7B8ZZ Dilation of Bladder, Via Natural or Artificial Opening Endoscopic (ICD-10-PCS; principal; 2020-08-29 06:45)
DX: N30.10 Interstitial cystitis (chronic) without hematuria (principal); E10.9 Type 1 diabetes mellitus without complications; L40.50 Arthropathic psoriasis, unspecified; Z88.5 Allergy status to narcotic agent; Z79.1 Long term (current) use of non-steroidal anti-inflammatories (NSAID)
CPT/HCPCS: J0690; J1100; J1815; J1885; J2001; J2250; J2405; J2704; J3010; J7121

== ENCOUNTER 2024-08-17 05:45 | Day surgery (SDC) | payer OTHER ==
[2024-08-13 14:32] VITALS: BP 128/72
[~2024-08-17] VITALS: Ht 152.4 cm; Wt 59.1 kg
[~2024-08-17 05:45] MED LIST changes: +IRON325 M1 PO; +LACTATED RINGER'S 1,000 ML IV SCH; +MACROBID 100 M100 MG PO; +MELOXICAM15 MG PO; +SKYRIZI150 MG/1 M SUB-Q; +VENTOLIN HFA18 GM INH; +[UNRECOGNIZED DRUG - SUPPLY] SQ
[2024-08-17 05:57] VITALS: BP 119/67
[2024-08-17] MEDS ORDERED: IBLOOD GLUCOSE TEST STRIP 1 EA TEST VI PRN ×2 (07:00→07:30)
[2024-08-17] MEDS ORDERED: LIDOCAINE HCL 1% 5 ML SDV INJ ONE (07:00)
[2024-08-17] MEDS ORDERED: MIDAZOLAM HCL 2 MG/2 ML VIAL ONE (07:13)
[2024-08-17] MEDS ORDERED: propofoL 200 MG/20 ML VIAL ONE ×2 (07:13→08:18)
[2024-08-17] MEDS ORDERED: LIDOCAINE HCL 2% 5 ML SDV ONE (07:13)
[2024-08-17] MEDS ORDERED: ACETAMINOPHEN 1,000 MG/100 ML VIAL ONE (07:13)
[2024-08-17] MEDS ORDERED: MIDAZOLAM HCL 2 MG/2 ML VIAL IV PRN (07:30)
[2024-08-17] MEDS ORDERED: NALOXONE HCL 0.4 MG SYR IV PRN ×2 (07:30→08:45)
[2024-08-17] MEDS ORDERED: HEParin SOD (PORCINE) 5,000 UNIT/ML SDV ONE (07:36)
[2024-08-17] MEDS ORDERED: LIDOCAINE HCL 2% 20 ML MDV ONE ×2 (07:37→07:47)
[2024-08-17] MEDS ORDERED: BUPIVACAINE HCL 0.5% 30 ML VIAL ONE (07:37)
--- NOTE | 2024-08-17 07:38 | NUR ---
PT NOT AVAILABLE FOR VISIT. PROVIDED PRAYER.
[2024-08-17] MEDS ORDERED: KETAMINE in NS 50 MG/5 ML SYR ONE (07:50)
[2024-08-17] MEDS ORDERED: dexmedeTOMIDine HCl 200 MCG/2 ML VIAL ONE (07:50)
[2024-08-17] MEDS ORDERED: SODIUM CHLORIDE 0.9% 20 ML IV ONE (07:51)
[2024-08-17] MEDS ORDERED: SODIUM BICARBONATE 50 MEQ/50 ML VIAL XX ONE (08:00)
[2024-08-17] MEDS ORDERED: KETOROLAC TROMETHAMINE 30 MG/ML VIAL ONE (08:15)
[2024-08-17] MEDS ORDERED: ondansetron HCL 4 MG/2 ML VIAL ONE (08:15)
[2024-08-17] MEDS ORDERED: FAMOTIDINE 20 MG/ 2 ML VIAL IV PRN (08:45)
[2024-08-17] MEDS ORDERED: ondansetron HCL 4 MG/2 ML VIAL IV PRN (08:45)
--- NOTE | 2024-08-17 08:50 | NUR ---
08/17/24 0850 Kat Powers 0836- PT ARRIVES TO PACU, SEMI NEELY POSITION, NON REACTIVE TO STIMULUS. BREATHING EVEN AND NON LABORED. LR INFUSING TO LH IV. ABD SOFT, NON DISTENDED. NO BLEEDING NOTED FROM STEVEN AREA. ALL MONITORS IN PLACE. 0842- PT REACTIVE TO TACTILE STIMULUS, PULLS LEGS UP AND OPENS EYES SLIGHTLY, REORIENTED TO TIME AND PLACE. PT QUICKLY FALLS BACK TO SLEEP. WILL CONTINUE TO MONITOR.
[2024-08-17] MEDS ORDERED: SIMETHICONE 80 MG CHEW PO SCH (09:00)
[2024-08-17 11:35] VITALS: BP 108/65
[2024-08-17] MEDS ORDERED: IBUPROFEN 800 MG TAB PO SCH (14:00)
--- NOTE | 2024-09-06 19:15 | OR ---
[facility] [address], [place] [address] Signed DATE OF OPERATION: 08/17/2024 SURGEON: Beto Rizo DO PREOPERATIVE DIAGNOSIS: Interstitial cystitis. POSTOPERATIVE DIAGNOSIS: Interstitial cystitis. PROCEDURES PERFORMED: 1. Cystoscopy. 2. Bladder instillation. ANESTHESIA: MAC. ESTIMATED BLOOD LOSS: 0 mL. SPECIMENS: None. FINDINGS: Normal external genitalia with normal clitoris, urethral meatus, bilateral [place]'s, Bartholin's glands. Normal vagina and cervix and urethral meatus. On cystoscopy, compliant bladder easily filling to greater than a 1000 mL. No Hunner's ulcers or other bladder abnormalities. Bladder was instilled with bladder cocktail. COMPLICATIONS: None. INDICATIONS: Ms. Menon is a very pleasant 44-year-old female with a long history of interstitial cystitis. She is status post hysterectomy with Dr. Van for chronic pelvic pain, but her symptoms did not improve. She has tried [place] and bladder diet with minimal improvement in her symptoms. The patient is frustrated with her continued interstitial cystitis and we reviewed options. She is interested in cystoscopy and bladder installation. Risks, benefits, and alternatives were discussed in detail with the patient. The patient understands and wished to proceed with the procedure. Electronically Signed By: BETO RIZO DO (JD) 09/06/241914 PATIENT NAME: SOFIYA MENON OPERATIVE REPORT DATE OF : 84 REPORT #: [id number] PHYSICIAN: BETO RIZO) PCP: KAMILLE DOMINIQUE PA-C REPORT IS CONFIDENTIAL AND NOT TO BE RELEASED WITHOUT AUTHORIZATION [facility] [address], [place] [address] Signed DESCRIPTION OF PROCEDURE: The patient was taken the OR. A time-out was performed to confirm correct patient, correct procedure. MAC anesthesia was adequately established. The patient was prepped and draped in dorsal lithotomy position with her feet in Yellofin stirrups. ICPs were on and running. No preoperative antibiotics were indicated. A 70-degree cystoscope was selected and normal urethral meatus was observed. Cystoscope was placed in the urethral meatus and advanced under direct visualization to the bladder. Normal urethra and bladder were noted. No Hunner's ulcers, trabeculations, or petechial hemorrhage noted. The bladder was filled with excellent bladder compliance to easily over a 1000 mL. The bladder was then drained with no terminal hematuria noted. The camera was reinserted. The bladder was refilled and bladder observed. Again, no petechial hemorrhage was noted with refilling. The bladder was then completely drained and the cystoscope removed. A bladder cocktail containing 2% lidocaine, 0.5% Marcaine, heparin, Kenalog, and sodium bicarb were instilled into the bladder. The patient was then taken to PACU in good and stable condition. Sponge, needle, and instrument counts correct x2 at the end of procedure. DO KELLY Benson/FAVIAN /[id number] Copies: ~ Electronically Signed By: BETO RIZO DO (JD) 09/06/24 1915 PATIENT NAME: SOFIYA MENON JUSTINO OPERATIVE REPORT DATE OF : 84 REPORT #: [id number] PHYSICIAN: BETO RIZO DO (JD) PCP: KAMILLE DOMINIQUE PA-C REPORT IS CONFIDENTIAL AND NOT TO BE RELEASED WITHOUT AUTHORIZATION
== END 2024-08-17 09:35 | disposition home or self-care (01) ==
LOC: OPS 05:45 → DS 05:45 → OPS 07:30 → DS 08:30 → OPS 09:35 → DS 14:20
PROVIDERS: ATTEND Obstetrics & Gynecology
PROC: 3E0 Administration, Physiological Systems and Anatomical Regions, Introduction (ICD-10-PCS; principal; 2024-08-17 07:30)
DX: N30.10 Interstitial cystitis (chronic) without hematuria (principal); E10.9 Type 1 diabetes mellitus without complications; Z79.899 Other long term (current) drug therapy; Z88.5 Allergy status to narcotic agent; Z90.710 Acquired absence of both cervix and uterus
CPT/HCPCS: 00910; J0131; J1644; J1885; J2003; J2250; J2405; J2704; J3490; J7121

== ENCOUNTER 2025-06-09 05:55 | Day surgery (SDC) | payer OTHER ==
[~2025-06-09] VITALS: Ht 152.4 cm; Wt 64.0 kg
[~2025-06-09 05:55] MED LIST changes: +CEFAZOLIN SODIUM 2 GM in SODIUM CHLORIDE 0.9% 100 ML IV SCH; +HYDROmorphone HCL 1 MG/ML SYR IV PRN; +HYOSCYAMINE SULFATE 0.375 MG TAB.ER.12H PO PRN; +IBLOOD GLUCOSE TEST STRIP 1 EA TEST VI PRN; +LIDOCAINE HCL 1% 5 ML SDV INJ ONE; +NOVOLOG100 UNIT/2 SUB-Q; +OXYCODONE/APAP 5/325 TAB PO PRN; +PHENAZOPYRIDINE HCL 100 MG TAB PO ONE; +TRAMADOL HCL 50 MG TAB PO PRN
[2025-06-09 06:06] VITALS: BP 106/66
[2025-06-09] MEDS ORDERED: NUMBCREAM38 GM TP ×2 (06:12)
[2025-06-09] MEDS ORDERED: VALIUM2 MG PO ×2 (06:13)
[2025-06-09] MEDS ORDERED: CEFAZOLIN SODIUM 2 GM in SODIUM CHLORIDE 0.9% 100 ML IV SCH (07:00)
[2025-06-09] MEDS ORDERED: IBLOOD GLUCOSE TEST STRIP 1 EA TEST VI PRN (07:00)
[2025-06-09] MEDS ORDERED: LIDOCAINE HCL 1% 5 ML SDV INJ ONE (07:00)
[2025-06-09] MEDS ORDERED: LIDOCAINE HCL 2% 5 ML SDV ONE (07:33)
[2025-06-09] MEDS ORDERED: MIDAZOLAM HCL 2 MG/2 ML VIAL ONE (07:33)
[2025-06-09] MEDS ORDERED: KETOROLAC TROMETHAMINE 30 MG/ML VIAL ONE (07:33)
[2025-06-09] MEDS ORDERED: KETAMINE in NS 50 MG/5 ML SYR ONE (07:33)
[2025-06-09] MEDS ORDERED: ACETAMINOPHEN 1,000 MG/100 ML VIAL ONE (07:33)
--- NOTE | 2025-06-09 08:35 | NUR ---
06/09/25 0835 Kat Powers 0823- PT ARRIVES TO PACU, SEMI NEELY POSITION, REACTIVE TO STIMULUS, BUT KEEPS EYES CLOSED. BREATHING EVEN AND NON LABORED ON ROOM AIR. LR INFUSING TO RW IV. ABD SOFT, NON DISTENDED. ALL MONITORS IN PLACE. 0830- PT WAKES TO VERBAL STIMULI, REORIENTED TO TIME AND PLACE, KEEPS EYES CLOSED. DENIES PAIN OR NAUSEA, STATES "JUST TIRED". 0833- PT STARTING TO MOVE LEGS AROUND, REPORTS CRAMPING. REPORTS HEAT DOESN'T HELP WITH PAIN. PT ROLLED TO RIGHT SIDE IN MORE OF POSIITON, APPEARS MORE COMFORTABLE. WARM BLANKETS PROVIDED.
[2025-06-09 08:59] VITALS: BP 102/55
--- NOTE | 2025-06-09 09:00 | NUR ---
PT ARRIVES TO DS FROM PACU VIA STRETCHER. PT IS DROWSY, BUT RESPONSIVE TO VERBAL STIMULI AND ASKING APPROPRIATE QUESTIONS. PT REPORTS PAIN IS TOLERABLE AT THIS TIME AND NO NEED FOR PRN PAIN MED. ICE WATER AND CRACKERS PROVIDED. REPORT RECEIVED FROM ASHLEY AVERY W/KRISTIN AT BEDSIDE. CALL LIGHT WITHIN REACH. PT STATES NO FURTHER NEEDS OR QUESTIONS AT THIS TIME.
--- NOTE | 2025-06-09 09:33 | NUR ---
IN PT ROOM FOR ROUNDING. PT RESTING W/EYES CLOSED. RESPIRATIONS EVEN AND UNLABORED. PT BOYFRIEND AT BEDSIDE. CALL LIGHT WITHIN REACH. PT TOLERATED ALL OF CRACKERS WITHOUT DIFFICULTY.
--- NOTE | 2025-06-09 09:44 | NUR ---
THIS RN IN ROOM D/T PT NEEDING TO USE RESTROOM. PT SITS AT BEDSIDE AND REPORTS NO NAUSEA/DIZZINESS. PT STANDS AT BEDSIDE AND NO SYMPTOMS. PT TO RESTROOM W/THIS RN STANDBY ASSIST. PT URINE VOIDS 650 ML OF CLEAR/YELLOW URINE. PT BACK TO ROOM AND GETTING DRESSED AT THIS TIME W/BOYFRIENDS ASSISTANCE. CALL LIGHT WITHIN REACH.
--- NOTE | 2025-06-09 09:55 | NUR ---
IN PT ROOM FOR VS AND ASSESSMENT. PT REPORTS NO CHANGE IN PAIN AND DENIES NEED FOR PRN PAIN MED AT THIS TIME. DC EDUCATION PROVIDED, PT AND PT BOYFRIEND STATE VERBAL UNDERSTANDING AND NO FURTHER QUESTIONS AT THIS TIME. PT OFF OF UNIT VIA WC TO PASSENGER SIDE OF VEHICLE. PT REPORTS NO FURTHER QUESTIONS AT THIS TIME. ALL BELONGINGS IN PT POSSESSION INCLUDING PROVIDED PRESCRIPTION.
[2025-06-09 10:01] VITALS: BP 109/50
[2025-06-09] MEDS ORDERED: SEVOFLURANE 250 ML BTL INH ONE (11:05)
[2025-06-11] MEDS ORDERED: HYDROCODON-ACE1 EA10 PO (15:34)
== END 2025-06-09 10:10 | disposition home or self-care (01) ==
LOC: DS 05:55
PROVIDERS: ATTEND Urology
PROC: 0T7B8ZZ Dilation of Bladder, Via Natural or Artificial Opening Endoscopic (ICD-10-PCS; principal; 2025-06-09 07:30)
DX: N30.10 Interstitial cystitis (chronic) without hematuria (principal); E10.9 Type 1 diabetes mellitus without complications; Z87.891 Personal history of nicotine dependence; Z88.5 Allergy status to narcotic agent
CPT/HCPCS: 00910; J0131; J0688; J1885; J2003; J2250; J2405; J2704; J3490; J7121